=== PATIENT | female | born 1940 | race Caucasian/White ===

== ENCOUNTER → 2019-02-10 | Outpatient (CLI) | payer MEDICARE, BC ==
[~2019-02-10] MED LIST: ACET325T12 PO; ALBU0.63 NEB; ALPR0.25 PO; ALPR0.5T10 PO; ALPR0.5T6 PO; AMOX1TAB63 PO; AZIT250T14 PO; BENZ100C PO; BUDE10.2 IH; CALC300T5 PO; CYCL5TAB PO; ESZO3TAB27 PO; FEXO180T72 PO; FLUT1BLS IH; FURO-81 PO; FURO40TA4 PO; GABA300C10 PO; GUAI600T31 PO; LEVO500T8 PO; METR500T PO; MONT10TA6 PO; PANT40TA3 PO; POTA20TA14 PO; SERT50TA PO; TRAM50TA PO; UMEC62.5 IH; ZOLP10TA PO; ZOLP5TAB PO; [UNRECOGNIZED DRUG - CODE] PO
--- NOTE | 2019-02-10 15:56 | DIREP ---
PROCEDURE:XRAY FOOT MIN 3 VWS-RT COMPARISON:None. INDICATIONS:M25.571 PAIN IN RIGHT ANKLE AND JOINTS OF RIGHT FOOT FINDINGS: BONES:Mildly displaced fracture involving the proximal aspect of the proximal phalanx of the 4th toe. This appears to extend to the medial aspect of the articular surface. JOINTS:Normal. SOFT TISSUES:Normal. OTHER:No additional findings. CONCLUSION:Mildly displaced avulsion injury involving the proximal aspect of the proximal phalanx of the 4th toe Dictated by: Santosh Hahn MD on 02/10/2019 at 03:54 PM
== END | disposition home or self-care (01) ==
LOC: RAD 14:44
PROVIDERS: ATTEND Nurse Practitioner Family
DX: S92.514A Nondisplaced fracture of proximal phalanx of right lesser toe(s), initial encounter for closed fracture (principal); X58.XXXA Exposure to other specified factors, initial encounter; Y93.89 Activity, other specified; Y92.89 Other specified places as the place of occurrence of the external cause; Y99.8 Other external cause status; Z68.22 Body mass index [BMI] 22.0-22.9, adult
CPT/HCPCS: 73630-RT

== ENCOUNTER 2019-10-09 15:28 | Emergency (ER) | payer MEDICARE, BC ==
[~2019-10-09] VITALS: Ht 152.4 cm; Wt 52.6 kg
[2019-10-09 15:57] VITALS: BP 157/84
[2019-10-09] MEDS ORDERED: DUO 0.5-3(2.5) MG/3 ML IH STA (16:01)
[2019-10-09] MEDS ORDERED: LASIX PO STA (16:01)
[2019-10-09 16:04] VITALS: BP 157/84
[2019-10-09 16:05] VITALS: BP 157/84
--- NOTE | 2019-10-09 16:07 | NUR ---
ARRIVAL PT ARRIVED TO ED VIA POV WITH DAUGHTER. SHE STATES THAT SHE HAS HAD LOWER BACK PAIN SINCE HER FRACTURED BACK 2 YEARS AGO. IT HAS INCREASED IN PAIN OVER THE LAST WEEK. PT ALSO STATES THAT SHE WAS SEEN LAST SATURDAY BY ASHLEY MOORE FOR SOB, COUGH AND CONGESTION. A Z-PAC AND STERIODS WERE STARTED. PT COMPLETED ANTIBIOTICS SATURDAY. PT STATES THAT SHE STILL HAS NOT FELT BETTER AND THAT SHE CONTINUES TO FEEL SHORT OF BREATH. AMBULATED TO ROOM INDEPENDENTLY. CONNECTED TO BEDSIDE MONITOR.
[2019-10-09] MEDS ORDERED: LASIX ONE (16:09)
[2019-10-09] MEDS ORDERED: DUO 0.5-3(2.5) MG/3 ML IH ONE (16:10)
[2019-10-09 16:17] LABS: BASOPHIL % 0.5 % (0.0-0.2); EOSINOPHIL # 0.2 10^3/uL (0.0-0.2); EOSINOPHIL % 2.7 % (0.0-5.0); LYMPHOCYTES # 1.4 10^3/uL (1.0-4.8); LYMPHOCYTES % 18.5 % (24.0-44.0); MEAN CORP HGB 30.5 pg (26-34); MONOCYTES # 0.6 10^3/uL (0.3-0.8); MONOCYTES % 7.8 % (5.0-12.0); NEUTROPHIL # 5.2 10^3/uL (1.8-7.7); NEUTROPHILS % 70.1 % (41.0-85.0); RED CELL DISTRIBUTION WIDTH 12.6 % (11.5-14.5)
--- NOTE | 2019-10-09 16:20 | ER.PDOC ---
General Chief Complaint: Cough/Congestion Stated Complaint: dyspnea, LBA Time seen by MD: 16:00 Source: patient, family Exam Limitations: no limitations History of Present Illness Initial Comments TREATED FOR BRONCHITIS OUT PATIENT Timing/Duration: 1 week Severity: moderate Activities at Onset: activity/exertion Prior Episodes/Possible Cause: occasional episodes Modifying Factors: improves with activity, improves with rest Associated Symptoms: wheezing Prior symptoms/Treatment: Similar symptoms previous, Recenly Seen, Treated by Doctor Allergies: Coded Allergies: Iodinated Contrast- Oral and IV Dye (Verified Allergy, Severe, Rash, ) HEAD TO TOE RASH AND BLISTER codeine (Verified Allergy, Mild, Nausea, 09/14/14) Home Meds Active Scripts Guaifenesin (MUCINEX) 600 Mg Tablet.er, 600 MG PO BID for 7 Days, 0 Refills Prov:ESSENCE CHOWDHURY MERCHANDISE SUPPORT ASSOCIATE 09/10/17 Benzonatate (TESSALON PERLE) 100 Mg Capsule, 100 MG PO TID, #15 CAPSULE Prov:ESSENCE CHOWDHURY MERCHANDISE SUPPORT ASSOCIATE 09/10/17 Azithromycin (AZITHROMYCIN) 250 Mg Tablet, 500 MG PO DAILY for 3 Days, TABLET Prov:ESSENCE CHOWDHURY MERCHANDISE SUPPORT ASSOCIATE 09/10/17 Zolpidem Tartrate (AMBIEN) 5 Mg Tablet, 1 TAB PO HS PRN for INSOMNIA, #30 TAB 0 Refills Prov:TIFFANY BYERS MD 03/15/17 Reported Medications Furosemide (FUROSEMIDE) 40 Mg Tablet, 1 TAB PO DAILY, #30 TAB 5 Refills 09/07/17 Sertraline Hcl (ZOLOFT) 50 Mg Tablet, 1 TAB PO DAILY, #30 TAB 09/07/17 Alprazolam (ALPRAZOLAM) 0.5 Mg Tablet, 0.5 MG PO TID, TABLET 09/07/17 Potassium Chloride (POTASSIUM CHLORIDE) 20 Meq Tab.er.prt, 2 TAB PO DAILY, #30 TAB 5 Refills 09/07/17 Fluticasone/Vilanterol (Breo Ellipta 200-25 Mcg INH) 1 Each Blst.w.dev, 1 EACH IH QID 03/11/17 Cyclobenzaprine Hcl (FLEXERIL) 5 Mg Tablet, 1 TAB PO TID, #30 TAB 03/11/17 Alprazolam (ALPRAZOLAM) 0.5 Mg Tab.rapdis, 0.5 MG PO TID 03/11/17 Eszopiclone (LUNESTA) 3 Mg Tablet, 1 TAB PO HS, #30 TAB 1 Refill 03/11/17 Gabapentin (GABAPENTIN) 300 Mg Capsule, 1 CAP PO HS, #30 CAP 1 Refill 01/09/17 Aspirin/Caffeine (Anacin 400-32 mg Tablet) 1 Each Tablet, 2 EACH PO BID PRN for PAIN, TABLET 12/18/16 Tramadol Hcl (TRAMADOL HCL) 50 Mg Tablet, 50 MG PO PRN PRN for PAIN, TABLET 01/11/16 Albuterol Sulfate (ALBUTEROL SULFATE) 0.63 Mg/3 Ml Vial.neb, 1 VIAL NEB QID PRN for SHORTNESS OF BREATH, #150 MILLILITER 1 Refill 07/26/15 Past Medical History Surgical History: breast augmentation LMP (females 10-50): postmenopause Social History Smoking: non-smoker Alcohol Use: none Drug Use: none Reviewed Nursing Reviewed: Vital Signs, Abn. Noted Review of Systems All Other Systems: Reviewed and Negative Physical Exam General Appearance: No Apparent Distress, WD/WN HEENT: PERRL/EOMI, Normal ENT Inspection, TMs Normal, Pharynx Normal Neck: Non-Tender, Full Range of Motion, Supple, Normal Inspection Respiratory: rales, rhonchi Cardiovascular: Normal Peripheral Pulses, Regular Rate, Rhythm, No Edema, No Gallop, No JVD, No Murmur Gastrointestinal: Normal Bowel Sounds, No Organomegaly, No Pulsatile Mass, Non Tender, Soft Extremities: Normal Range of Motion, Non-Tender, Normal Inspection, No Pedal Edema, No Calf Tenderness, Normal Capillary Refill 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 (10/09/19 16:00) Helicobacter Pylori (10/09/19 16:00) D-Dimer (10/09/19 16:00) Xr Chest 1v (10/09/19 16:00) Ekg-Routine (10/09/19 16:00) Furosemide (Lasix) (10/09/19 16:01) Ipratropium/Albuterol Sulfate (Duo 0.5-3 (10/09/19 16:01) Morphine Sulfate (Morphine Sulfate) (10/09/19 16:30) Furosemide (Lasix) (10/09/19 16:09) Ipratropium/Albuterol Sulfate (Duo 0.5-3 (10/09/19 16:10) Vital Signs Date Time Temp Pulse Resp B/P (MAP) Pulse Ox O2 Delivery O2 Flow Rate FiO2 10/09/19 16:30 69 18 94 10/09/19 16:24 70 16 92 10/09/19 16:15 157/84 10/09/19 16:05 97.8 73 18 10/09/19 16:04 97.8 73 18 157/84 (108) 94 Room Air 10/09/19 15:57 97.8 73 18 94 Room Air Administered Medications Medications (Trade) Dose Ordered Sig/Beth Route PRN Reason Start Time Stop Time Status Last Admin Dose Admin Albuterol/ Ipratropium (Duo 0.5-3(2.5) Mg/3 ml) 3 ml STAT STAT IH 10/09/19 16:01 10/09/19 16:05 DC 10/09/19 16:23 3 ML Furosemide (Lasix) 40 mg STAT STAT PO 10/09/19 16:01 10/09/19 16:05 DC 10/09/19 16:15 40 MG Morphine Sulfate (Morphine Sulfate) 1 mg Q4H PRN IV PAIN 4 - 6 10/09/19 16:30 11/08/19 16:29 10/09/19 16:15 1 MG Laboratory Tests Test 10/09/19 16:08 White Blood Count 7.4 10^3/uL (4.5-11.0) Red Blood Count 3.97 10^6/uL (4.00-5.20) L Hemoglobin 12.1 g/dL (12.0-15.0) Hematocrit 37.8 % (36.0-46.0) Mean Corpuscular Volume 95.2 fL (78-100) Mean Corpuscular Hemoglobin 30.5 pg (26-34) Mean Corpuscular Hemoglobin Concent 32.0 g/dL (33-37) L Red Cell Distribution Width 12.6 % (11.5-14.5) Platelet Count 274 10^3/uL (150-400) Mean Platelet Volume 9.0 fL (7.8-11.0) Neutrophils (%) (Auto) 70.1 % (41.0-85.0) Lymphocytes (%) (Auto) 18.5 % (24.0-44.0) L Monocytes (%) (Auto) 7.8 % (5.0-12.0) Neutrophils # (Auto) 5.2 10^3/uL (1.8-7.7) Lymphocytes # (Auto) 1.4 10^3/uL (1.0-4.8) Monocytes # (Auto) 0.6 10^3/uL (0.3-0.8) Absolute Immature Granulocyte (auto 0.03 10^3 u/L (0-2) Immature Granulocytes % 0.40 % (0.00-0.50) Eosinophils % 2.7 % (0.0-5.0) Basophils % 0.5 % (0.0-0.2) H Basophils # 0.0 10^3/uL (0.0-0.1) Eosinophil Count 0.2 10^3/uL (0.0-0.2) Prothrombin Time 10.8 SEC (9.4-11.5) Prothrombin Time INR (Non-Therap) 1.0 Activated Partial Thromboplast Time 28.3 SEC (24.67-30.72) D-Dimer 0.87 mg/L (0.19-0.49) *H Sodium Level 143 mmol/L (132-145) Potassium Level 3.6 mmol/L (3.6-5.2) Chloride Level 106.0 mmol/L (96-109) Carbon Dioxide Level 31.1 mmol/L (20.0-32) Anion Gap 9.5 Blood Urea Nitrogen 9 mg/dL (7-18) Creatinine 0.77 mg/dL (0.59-1.40) Estimated GFR () 88.0 (>/=60) BUN/Creatinine Ratio 11.0 Glucose Level 85 mg/dL (70-110) Calcium Level 8.9 mg/dL (8.4-10.5) Total Bilirubin 0.2 mg/dL (0.2-1.0) Aspartate Amino Transferase (AST) 16 U/L (0-35) Alanine Aminotransferase (ALT) 13 U/L (12-78) Alkaline Phosphatase 117 U/L (50-136) Total Creatine Kinase 110 U/L (26-192) Creatine Kinase MB 1.6 ng/mL (0.5-3.6) Troponin I < 0.02 ng/mL (0.00-0.05) Pro-B-Type Natriuretic Peptide 160 pg/mL (0-450) Total Protein 6.5 g/dL (6.4-8.2) Albumin 3.0 g/dL (3.4-5.0) L Globulin 3.5 Helicobacter pylori Screen NEGATIVE (NEGATIVE) EKG/XRAY/CT/US EKG: NSR, nonspecific ST T wave chg, unchanged from Course Sepsis Screening Results: Posi: POSITIVE SEPSIS RISK Duration or Total Time Spent w: 2 HRS Vitals & review Data Vital Sign - Last 24 Hours 10/09/19 10/09/19 10/09/19 10/09/19 15:57 16:04 16:05 16:15 Temp 97.8 97.8 97.8 Pulse 73 73 73 Resp 18 18 18 B/P (MAP) 157/84 (108) 157/84 Pulse Ox 94 94 O2 Delivery Room Air Room Air 10/09/19 10/09/19 16:24 16:30 Pulse 70 69 Resp 16 18 Pulse Ox 92 94 Laboratory Tests Test 10/09/19 16:08 White Blood Count 7.4 10^3/uL Red Blood Count 3.97 10^6/uL Hemoglobin 12.1 g/dL Hematocrit 37.8 % Mean Corpuscular Volume 95.2 fL Mean Corpuscular Hemoglobin 30.5 pg Mean Corpuscular Hemoglobin Concent 32.0 g/dL Red Cell Distribution Width 12.6 % Platelet Count 274 10^3/uL Mean Platelet Volume 9.0 fL Neutrophils (%) (Auto) 70.1 % Lymphocytes (%) (Auto) 18.5 % Monocytes (%) (Auto) 7.8 % Neutrophils # (Auto) 5.2 10^3/uL Lymphocytes # (Auto) 1.4 10^3/uL Monocytes # (Auto) 0.6 10^3/uL Absolute Immature Granulocyte (auto 0.03 10^3 u/L Immature Granulocytes % 0.40 % Eosinophils % 2.7 % Basophils % 0.5 % Basophils # 0.0 10^3/uL Eosinophil Count 0.2 10^3/uL Prothrombin Time 10.8 SEC Prothrombin Time INR (Non-Therap) 1.0 Activated Partial Thromboplast Time 28.3 SEC D-Dimer 0.87 mg/L Sodium Level 143 mmol/L Potassium Level 3.6 mmol/L Chloride Level 106.0 mmol/L Carbon Dioxide Level 31.1 mmol/L Anion Gap 9.5 Blood Urea Nitrogen 9 mg/dL Creatinine 0.77 mg/dL Estimated GFR () 88.0 BUN/Creatinine Ratio 11.0 Glucose Level 85 mg/dL Calcium Level 8.9 mg/dL Total Bilirubin 0.2 mg/dL Aspartate Amino Transf (AST/SGOT) 16 U/L Alanine Aminotransferase (ALT/SGPT) 13 U/L Alkaline Phosphatase 117 U/L Total Creatine Kinase 110 U/L Creatine Kinase MB 1.6 ng/mL Troponin I < 0.02 ng/mL Pro-B-Type Natriuretic Peptide 160 pg/mL Total Protein 6.5 g/dL Albumin 3.0 g/dL Globulin 3.5 Helicobacter pylori Screen NEGATIVE Current Medications Medications (Trade) Dose Ordered Sig/Beth PRN Reason Start Time Stop Time Status Last Admin Morphine Sulfate (Morphine Sulfate) 1 mg Q4H PRN PAIN 4 - 6 10/09/19 16:30 11/08/19 16:29 10/09/19 16:15 O2 Sat by Pulse Oximetry: 94 Departure Time of Disposition: 17:00 Disposition: 01 HOME, SELF-CARE Impression: Primary Impression: Acute bronchitis Condition: Improved Referrals: JOHN OSMAN MERCHANDISE SUPPORT ASSOCIATE (PCP) PRIMARY CARE PROVIDER Duration or Time Spent with Pa: KATARINA Polanco MD Oct 09, 2019 16:20
--- NOTE | 2019-10-09 16:21 | PCM.EKG ---
[facility] Test Date: 2019-10-09 Test Time: 16:18:45 Pat Name: GABBIE ECHAVARRIA Department: Patient ID: 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 Reading MD: Darius Barclay Measurements Intervals [place] Rate: 69 P: 72 [place]: 150 QRS: -49 QRSD: 113 T: 62 QT: 420 QTc: 450 Interpretive Statements Sinus rhythm Atrial premature complex Incomplete RBBB and LAFB Minimal ST elevation, anterior leads Baseline wander in lead(s) V1 Compared to ECG 04/05/2018 16:07:17 Atrial premature complex(es) now present Left anterior fascicular block now present Incomplete right bundle-branch block now present Right bundle-branch block now present ST (T wave) deviation now present Electronically Signed On 10-14-2019 8:10:17 SALES APPLICATIONS ENGINEER by Darius Barclay Please click the below link to view image of tracing.
[2019-10-09] MEDS ORDERED: MORPHINE SULFATE IV PRN (16:30)
--- NOTE | 2019-10-09 16:36 | DIREP ---
PROCEDURE:CHEST 1 VIEW COMPARISON:[facility], CR, XRAY CHEST SINGLE VW, 04/05/2018, 04:10 PM. [facility], CR, XRAY CHEST 2 VWS, 03/18/2018, 11:05 AM. [facility], CR, XRAY CHEST 2 VWS, 03/03/2018, 02:56 PM. INDICATIONS:chf, dyspnea FINDINGS: LUNGS/PLEURA:Mild hyperinflation. No focal consolidation appreciated. VASCULATURE:Normal. Unremarkable pulmonary vasculature. CARDIAC:Normal. No cardiac silhouette abnormality or cardiomegaly. MEDIASTINUM:Normal. No visible mass or adenopathy. BONES:Mild degenerative changes. OTHER:Negative. CONCLUSION:Mild hyperinflation, without acute abnormality noted. Dictated by: Marlon Ceja M.D. on 10/09/2019 at 04:34 PM
--- NOTE | 2019-10-09 16:39 | NUR ---
CRITICAL LAB D-DIMER 0.87. REPORTED TO DR. OZUNA
[2019-10-09 16:44] LABS: ALANINE AMINOTRANSFERASE(ML) 13 U/L (12-78); ALKALINE PHOSPHATASE 117 U/L (50-136); ASPARTATE AMINO TRANSFERASE 16 U/L (0-35); CALCIUM 8.9 mg/dL (8.4-10.5); CARBON DIOXIDE 31.1 mmol/L (20.0-32); GLUCOSE 85 mg/dL (70-110)
[2019-11-22] MEDS ORDERED: Metoprolol Succinate PO (10:21)
[2019-11-22] MEDS ORDERED: PANT40TA3 PO (10:21)
[2019-11-22] MEDS ORDERED: RANO500T2 PO (10:21)
[2019-11-22] MEDS ORDERED: ATOR40TA PO (10:21)
[2019-11-24] MEDS ORDERED: METO25TA4 PO (14:35)
[2019-11-24] MEDS ORDERED: BENZ100C PO (14:35)
== END 2019-10-09 17:10 | disposition home or self-care (01) ==
LOC: ER 15:28
DX: J20.9 Acute bronchitis, unspecified (principal); Z79.82 Long term (current) use of aspirin; Z79.899 Other long term (current) drug therapy; Z88.5 Allergy status to narcotic agent; R79.1 Abnormal coagulation profile
CPT/HCPCS: 36415; 71045; 80053; 82550; 82553; 83880; 84484; 85025; 85379; 85610; 85730; 86677; 93005; 94640; 96374; 99285; J7620

== ENCOUNTER → 2019-10-14 | Outpatient (CLI) | payer MEDICARE, BC ==
[~2019-10-14] MED LIST changes: +ATOR40TA PO; +METO25TA4 PO; +Metoprolol Succinate PO; +RANO500T2 PO
--- NOTE | 2019-10-14 14:37 | DIREP ---
PROCEDURE:CHEST 2 VIEWS COMPARISON:[facility], CR, XRAY CHEST SINGLE VW, 10/09/2019, 04:12 PM. [facility], CR, XRAY CHEST SINGLE VW, 04/05/2018, 04:10 PM. INDICATIONS:COPD, ASTHMA EXTERBATION FINDINGS: LUNGS/PLEURA:Hyperinflated lung finley with chronic interstitial changes. Left lower lobe opacity, could represent atelectasis versus evolving infiltrate. Improved aeration compared to prior study. VASCULATURE:Unremarkable pulmonary vasculature. Calcified aortic arch. CARDIAC:Normal. No cardiac silhouette abnormality or cardiomegaly. MEDIASTINUM:Normal. No visible mass or adenopathy. BONES:Mild exaggeration of normal thoracic kyphosis. Degenerative change without evidence of acute osseus abnormality. OTHER:Negative. CONCLUSION: 1. Left lower lobe opacity, could represent atelectasis versus evolving infiltrate. 2. Stable changes related to reactive airway disease or COPD/emphysema. Dictated by: Suhail Thurman MD on 10/14/2019 at 02:35 PM
== END | disposition home or self-care (01) ==
LOC: RAD 12:27
PROVIDERS: ATTEND Specialist
DX: J44.1 Chronic obstructive pulmonary disease with (acute) exacerbation (principal)
CPT/HCPCS: 71046

== ENCOUNTER → 2019-10-19 | Outpatient (CLI) | payer MEDICARE, BC ==
[~2019-10-19] MED LIST changes: -ATOR40TA PO; -METO25TA4 PO; -Metoprolol Succinate PO; -RANO500T2 PO
--- NOTE | 2019-10-19 15:49 | DIREP ---
PROCEDURE:XR BARIUM SWALLOW - MODIFIED COMPARISON:None. INDICATIONS:Dysphasia TECHNIQUE:A comprehensive fluoroscopic examination of swallowing was performed, utilizing a variety of barium consistencies. FINDINGS: There was premature spill to the valleculae and piriform sinuses, particularly with thin liquids. No laryngeal penetration or aspiration was identified. FLUORO TIME: 1.6 minutes NUMBER OF IMAGES: 1 CONCLUSION: 1. No laryngeal penetration or aspiration. Dictated by: Carlos Manuel Wayne M.D. On 10/19/2019 at 03:51 PM
== END | disposition home or self-care (01) ==
LOC: RAD 12:57
PROVIDERS: ATTEND Nurse Practitioner Family
DX: R47.02 Dysphasia (principal); R13.10 Dysphagia, unspecified
CPT/HCPCS: 74230; 92611

== ENCOUNTER → 2019-10-20 | Outpatient (CLI) | payer MEDICARE, BC ==
[~2019-10-20] MED LIST changes: +VENTOLIN IH ONE
--- NOTE | 2019-10-20 12:30 | DIREP ---
PROCEDURE:XRAY SPINE LUMBAR 2-3 VWS COMPARISON:[facility], , XRAY SPINE LUMBAR 2-3 VWS, 03/03/2018, 04:56 PM. INDICATIONS:M54.5 LOW BACK PAIN TECHNIQUE:AP, lateral, bilateral oblique, and coned down lateral views of the lumbar spine are provided. FINDINGS: ALIGNMENT:Normal alignment. VERTEBRAE:Residual contrast in the colon limits osseous detail. No bony abnormality as visualized. Vertebral body heights appear maintained. Below mild facet arthropathy. S1 appears transitional. DISK SPACES:Disc spaces maintained. SPONDYLOLISTHESIS:None. SACROILIAC JOINTS:Partially obscured by contrast in the colon. No abnormality as visualized. OTHER:Normal. CONCLUSION: 1. Residual contrast in the colon limits bony detail. 2. Mild lower lumbar facet arthropathy. Dictated by: Ramon Newberry M.D. on 10/20/2019 at 12:22 PM
== END | disposition home or self-care (01) ==
LOC: RT 09:36
PROVIDERS: ATTEND Nurse Practitioner Family
DX: M12.88 Other specific arthropathies, not elsewhere classified, other specified site (principal); J44.9 Chronic obstructive pulmonary disease, unspecified
CPT/HCPCS: 72100; 94060; 94729; J7613

== ENCOUNTER 2019-11-20 14:48 | Inpatient (IN) | payer MEDICARE, BC ==
[2019-11-20] VITALS (12 sets, daily range): BP systolic 90–131; BP diastolic 37–73
[~2019-11-20] VITALS: Ht 152.4 cm; Wt 49.4 kg
[~2019-11-20 14:48] MED LIST changes: -VENTOLIN IH ONE
--- NOTE | 2019-11-20 15:29 | PCM.EKG ---
[facility] Test Date: 2019-11-20 Test Time: 15:24:11 Pat Name: GABBIE ECHAVARRIA Department: Room: ICU6 Gender: F Production Support Developer: BRENDEN : 1940 Requested By: FREDIS SANTACRUZ Order Number: [id number] Reading MD: Fredis SANTACRUZ Measurements Intervals [place] Rate: 65 P: 67 [place]: 137 QRS: -47 QRSD: 120 T: 61 QT: 442 QTc: 460 Interpretive Statements Sinus rhythm Incomplete RBBB and LAFB Minimal ST elevation, anterior leads Compared to ECG 10/09/2019 16:18:45 Atrial premature complex(es) no longer present ST (T wave) deviation still present Electronically Signed On 11-24-2019 23:06:35 EMERGENCY MEDCL EMT by Fredis SANTACRUZ Please click the below link to view image of tracing.
[2019-11-20 15:32] LABS: BASOPHIL # 0.1 10^3/uL (0.0-0.1); BASOPHIL % 0.6 % (0.0-0.2); EOSINOPHIL # 0.3 10^3/uL (0.0-0.2); EOSINOPHIL % 3.4 % (0.0-5.0); LYMPHOCYTES # 1.8 10^3/uL (1.0-4.8); LYMPHOCYTES % 22.6 % (24.0-44.0); MEAN CORP HGB 30.1 pg (26-34); MONOCYTES # 0.5 10^3/uL (0.3-0.8); MONOCYTES % 6.5 % (5.0-12.0); NEUTROPHIL # 5.3 10^3/uL (1.8-7.7); NEUTROPHILS % 66.6 % (41.0-85.0); RED CELL DISTRIBUTION WIDTH 13.7 % (11.5-14.5)
--- NOTE | 2019-11-20 15:39 | NUR ---
UPDATE DR. SANTACRUZ ON THE PHONE WITH DR. REYES
--- NOTE | 2019-11-20 15:40 | DIREP ---
PROCEDURE:CHEST 1 VIEW COMPARISON:[facility], [facility], XRAY CHEST 2 VWS, 10/14/2019, 12:44 PM. [facility], [facility], XRAY CHEST SINGLE VW, 10/09/2019, 04:12 PM. [facility], [facility], XRAY CHEST SINGLE VW, 04/05/2018, 04:10 PM. INDICATIONS:Chest pain FINDINGS: LUNGS/PLEURA:Left lower lobe airspace opacity, which may represent consolidation or atelectasis. No effusion or pneumothorax. VASCULATURE:Normal. Unremarkable pulmonary vasculature. CARDIAC:Normal. No cardiac silhouette abnormality or cardiomegaly. MEDIASTINUM:Calcified aortic arch. BONES:Diffuse degenerative changes. OTHER:EKG leads. CONCLUSION:Left lower lobe airspace opacity, which may represent pneumonia or atelectasis. Dictated by: Marlon Ceja M.D. on 11/20/2019 at 03:38 PM
--- NOTE | 2019-11-20 15:42 | ER.PDOC ---
General Chief Complaint: Chest Pain-Cardiac Nature Stated Complaint: chest pain Time seen by MD: 15:40 Source: patient Exam Limitations: no limitations History of Present Illness Initial Comments Chest pain Timing/Duration: 1 hour Severity/Quality: tightness Radiation: no radiation Prior CP/Workup: Stress Test Nitro Today/Relief: 0.4 mg x 2, Mild Relief Aspirin Today: 81 mg x 4 Associated Symptoms: shortness of breath Allergies: Coded Allergies: Iodinated Contrast Media (Verified Allergy, Severe, Rash, 12/18/16) HEAD TO TOE RASH AND BLISTER codeine (Verified Allergy, Mild, Nausea, 09/14/14) Home Meds Active Scripts Guaifenesin (MUCINEX) 600 Mg Tablet.er, 600 MG PO BID for 7 Days, 0 Refills Prov:ESSENCE CHOWDHURY GAS METER CHECKER 09/10/17 Benzonatate (TESSALON PERLE) 100 Mg Capsule, 100 MG PO TID, #15 CAPSULE Prov:ESSENCE CHOWDHURY GAS METER CHECKER 09/10/17 Azithromycin (AZITHROMYCIN) 250 Mg Tablet, 500 MG PO DAILY for 3 Days, TABLET Prov:ESSENCE CHOWDHURY GAS METER CHECKER 09/10/17 Zolpidem Tartrate (AMBIEN) 5 Mg Tablet, 1 TAB PO HS PRN for INSOMNIA, #30 TAB 0 Refills Prov:TIFFANY BYERS MD 03/15/17 Reported Medications Furosemide (FUROSEMIDE) 40 Mg Tablet, 1 TAB PO DAILY, #30 TAB 5 Refills 09/07/17 Sertraline Hcl (ZOLOFT) 50 Mg Tablet, 1 TAB PO DAILY, #30 TAB 09/07/17 Alprazolam (ALPRAZOLAM) 0.5 Mg Tablet, 0.5 MG PO TID, TABLET 09/07/17 Potassium Chloride (POTASSIUM CHLORIDE) 20 Meq Tab.er.prt, 2 TAB PO DAILY, #30 TAB 5 Refills 09/07/17 Fluticasone/Vilanterol (Breo Ellipta 200-25 Mcg INH) 1 Each Blst.w.dev, 1 EACH IH QID 03/11/17 Cyclobenzaprine Hcl (FLEXERIL) 5 Mg Tablet, 1 TAB PO TID, #30 TAB 03/11/17 Alprazolam (ALPRAZOLAM) 0.5 Mg Tab.rapdis, 0.5 MG PO TID 03/11/17 Eszopiclone (LUNESTA) 3 Mg Tablet, 1 TAB PO HS, #30 TAB 1 Refill 03/11/17 Gabapentin (GABAPENTIN) 300 Mg Capsule, 1 CAP PO HS, #30 CAP 1 Refill 01/09/17 Aspirin/Caffeine (Anacin 400-32 mg Tablet) 1 Each Tablet, 2 EACH PO BID PRN for PAIN, TABLET 12/18/16 Tramadol Hcl (TRAMADOL HCL) 50 Mg Tablet, 50 MG PO PRN PRN for PAIN, TABLET 01/11/16 Albuterol Sulfate (ALBUTEROL SULFATE) 0.63 Mg/3 Ml Vial.neb, 1 VIAL NEB QID PRN for SHORTNESS OF BREATH, #150 MILLILITER 1 Refill 07/26/15 Past Medical History Medical History: angina, congestive heart failure, COPD Surgical History: cardiac cath Social History Alcohol Use: none Drug Use: none Constitutional: no symptoms reported Respiratory: see HPI Cardiovascular: see HPI Gastrointestinal: no symptoms reported Genitourinary: no symptoms reported Musculoskeletal: no symptoms reported All Other Systems: Reviewed and Negative Physical Exam General Appearance: No Apparent Distress, WD/WN Neck: Non-Tender, Full Range of Motion, Supple, Normal Inspection Respiratory: chest non-tender, lungs clear, normal breath sounds, no respiratory distress, no accessory muscle use Cardiovascular: Normal Peripheral Pulses, Regular Rate, Rhythm, No Edema, No Gallop, No JVD, No Murmur Gastrointestinal: Normal Bowel Sounds, No Organomegaly, No Pulsatile Mass, Non Tender, Soft Extremities: Normal Range of Motion, Non-Tender, Normal Inspection, No Pedal Edema, No Calf Tenderness, Normal Capillary Refill Neurologic/Psychiatric: 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 (1/10/20 15:18) Helicobacter Pylori (11/20/19 15:18) D-Dimer (11/20/19 15:18) Ekg-Routine (11/20/19 15:18) Xr Chest 1v (11/20/19 15:18) Vital Signs Date Time Temp Pulse Resp B/P (MAP) Pulse Ox O2 Delivery O2 Flow Rate FiO2 11/20/19 14:49 97.8 74 18 95 11/20/19 14:49 97.8 76 20 121/52 (75) 96 Nasal [place] 2.00 Laboratory Tests Test 11/20/19 15:27 White Blood Count 7.9 10^3/uL (4.5-11.0) Red Blood Count 4.48 10^6/uL (4.00-5.20) Hemoglobin 13.5 g/dL (12.0-15.0) Hematocrit 42.0 % (36.0-46.0) Mean Corpuscular Volume 93.8 fL (78-100) Mean Corpuscular Hemoglobin 30.1 pg (26-34) Mean Corpuscular Hemoglobin Concent 32.1 g/dL (33-37) L Red Cell Distribution Width 13.7 % (11.5-14.5) Platelet Count 225 10^3/uL (150-400) Mean Platelet Volume 10.0 fL (7.8-11.0) Neutrophils (%) (Auto) 66.6 % (41.0-85.0) Lymphocytes (%) (Auto) 22.6 % (24.0-44.0) L Monocytes (%) (Auto) 6.5 % (5.0-12.0) Neutrophils # (Auto) 5.3 10^3/uL (1.8-7.7) Lymphocytes # (Auto) 1.8 10^3/uL (1.0-4.8) Monocytes # (Auto) 0.5 10^3/uL (0.3-0.8) Absolute Immature Granulocyte (auto 0.02 10^3 u/L (0-2) Absolute Eosinophils (auto) 0.3 10^3/uL (0.0-0.2) H Immature Granulocytes % 0.30 % (0.00-0.50) Eosinophils % 3.4 % (0.0-5.0) Basophils % 0.6 % (0.0-0.2) H Basophils # 0.1 10^3/uL (0.0-0.1) Progress Progress CXR: :Left lower lobe airspace opacity, which may represent pneumonia or atelectasis. EKG/XRAY/CT/US EKG: NSR Departure Time of Disposition: 16:36 Disposition: 09 ADMITTED INPATIENT Impression: Primary Impression: Unstable angina Condition: Stable Referrals: JOHN OSMAN GAS METER CHECKER (PCP) PRIMARY CARE PROVIDER Comments Admitted by Dr. Alfonso Duration or Time Spent with Pa: 45 mins FREDIS SANTACRUZ MD Nov 20, 2019 15:42
[2019-11-20] MEDS ORDERED: MORPHINE SULFATE IV STA (15:50)
[2019-11-20 16:00] LABS: ALANINE AMINOTRANSFERASE(ML) 12 U/L (12-78); ALKALINE PHOSPHATASE 105 U/L (50-136); ASPARTATE AMINO TRANSFERASE 15 U/L (0-35); CARBON DIOXIDE 29.2 mmol/L (20.0-32); GLUCOSE 83 mg/dL (70-110)
[2019-11-20] MEDS ORDERED: NITROGLYCERIN 25MG/D5W 250ML 250 ML IV SCH (16:00)
[2019-11-20] MEDS ORDERED: ULTRAM PO PRN (16:00)
[2019-11-20] MEDS ORDERED: MORPHINE SULFATE IV PRN (16:00)
[2019-11-20] MEDS ORDERED: AMBIEN PO PRN (16:00)
[2019-11-20] MEDS: ASPIRIN EC PO SCH (16:21)
[2019-11-20] MEDS: NS 1000ML/KCL 20MEQ 1,000 ML IV SCH (16:40)
[2019-11-20] MEDS ORDERED: NITROGLYCERIN 25MG/D5W 250ML 250 ML IV ONE (16:49)
--- NOTE | 2019-11-20 16:52 | NUR ---
UPDATE DR. SANTACRUZ ON THE PHONE WITH DR. REYES.
--- NOTE | 2019-11-20 17:19 | NUR ---
called report to neisha at [phone]
--- NOTE | 2019-11-20 20:02 | PCM.EKG ---
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: PRIMO : 1940 Requested By: JADON REYES Order Number: [id number] Reading MD: Measurements Intervals [place] Rate: 73 P: 57 [place]: 135 QRS: -59 QRSD: 112 T: 64 QT: 417 QTc: 460 Interpretive Statements Sinus rhythm Incomplete right bundle branch block Inferior infarct, old Compared to ECG 10/09/2019 16:18:45 Myocardial infarct finding now present Atrial premature complex(es) no longer present Left anterior fascicular block no longer present Right bundle-branch block no longer present ST (T wave) deviation no longer present Please click the below link to view image of tracing.
[2019-11-20] MEDS ORDERED: AMBIEN ONE (22:52)
[2019-11-20] MEDS: LOVENOX SQ SCH (22:53)
[2019-11-20] MEDS: MUCINEX PO SCH (22:54)
[2019-11-20] MEDS: NEURONTIN PO SCH (22:54)
[2019-11-20] MEDS: LIPITOR PO SCH (22:54)
[2019-11-20] MEDS: XANAX PO SCH (22:54)
[2019-11-20] MEDS: RANEXA PO SCH (22:54)
[2019-11-21] VITALS (60 sets, daily range): BP systolic 48–166; BP diastolic 17–119
[2019-11-21] MEDS: NS 1000ML/KCL 20MEQ 1,000 ML IV SCH ×3 (02:00→18:18)
--- NOTE | 2019-11-21 07:35 | PCM.EKG ---
[facility] Test Date: 2019-11-21 Test Time: 07:33:05 Pat Name: GABBIE ECHAVARRIA Department: Room: ICU6 Gender: F Account Liaison Hospice: MINERVA : 1940 Requested By: JADON REYES Order Number: [id number] Reading MD: Measurements Intervals [place] Rate: 91 P: 66 MA: 138 QRS: -55 QRSD: 108 T: 64 QT: 379 QTc: 467 Interpretive Statements Sinus rhythm RSR' in V1 or V2, right VCD or RVH Inferior infarct, old Compared to ECG 10/09/2019 16:18:45 Right ventricular hypertrophy now present RSR' in V1 or V2 now present Myocardial infarct finding now present Atrial premature complex(es) no longer present Left anterior fascicular block no longer present Incomplete right bundle-branch block no longer present Right bundle-branch block no longer present ST (T wave) deviation no longer present Please click the below link to view image of tracing.
[2019-11-21] MEDS ORDERED: PULMICORT IH ONE (07:52)
[2019-11-21] MEDS ORDERED: VENTOLIN IH ONE (07:53)
[2019-11-21] MEDS: PULMICORT IH SCH ×2 (07:59→21:53)
[2019-11-21] MEDS: VENTOLIN IH SCH ×4 (07:59→21:53)
[2019-11-21] MEDS: LOVENOX SQ SCH (09:00)
[2019-11-21] MEDS: ZOLOFT PO SCH (09:17)
[2019-11-21] MEDS: PROTONIX PO SCH (09:17)
[2019-11-21] MEDS: RANEXA PO SCH ×2 (09:18→20:36)
[2019-11-21] MEDS: XANAX PO SCH ×3 (09:18→20:36)
[2019-11-21] MEDS: MUCINEX PO SCH ×2 (09:18→20:36)
--- NOTE | 2019-11-21 09:20 | NUR ---
Nitro gtt Nitro gtt discontinued at this time per Dr. Alfonso order. Pt denies any chest pain or pressure.
--- NOTE | 2019-11-21 11:42 | NUR ---
Dr. Kaden Alfonso at bedside discussing plan of care and assessing pt. New orders received to discontinue Lovenox. RBVO.
[2019-11-21] MEDS: ULTRAM PO PRN (12:44)
--- NOTE | 2019-11-21 15:13 | HPH ---
ADMIT DATE: 11/20/2019 CHIEF COMPLAINT: Chest heaviness, tightness. HISTORY OF PRESENT ILLNESS: The patient is a 79-year-old white female with underlying history of COPD and she had a normal myocardial perfusion scan several months ago and she has underlying history of coronary stents and hypertension, hypertensive heart disease and she presented with chest heaviness, tightness and shortness of breath and had taken 2 nitro at home, was given morphine and EKG was showing RSR pattern in V1, V2, may be an incomplete right bundle branch block, but diffuse ST-T wave changes and troponins were negative, but because she had significant chest pain, improved with nitro and nitro drip, the patient was admitted with diagnosis of acute coronary ischemia, rule out infarct. ALLERGIES: IODINE COMPOUNDS AND CODEINE. MEDICATIONS: She has been on Mucinex 600 mg twice a day, recently had cough has been on Tessalon Perles 100 mg 3 times a day, finished a course of Zithromax, Ambien 5 mg once a day, Lasix 40 mg once a day, Zoloft 50 mg once a day, Xanax 0.5 mg 3 times a day, potassium 20 mEq 2 tablets daily and she is on Breo Ellipta 1 puff daily and cyclobenzaprine 5 mg once a day. She is on Lunesta on p.r.n. basis and gabapentin 300 mg at bedtime. She takes aspirin with caffeine combination, Anacin 400-32 two tablets twice a day for headaches, Ultram 50 mg p.r.n. for pain. She takes albuterol inhaler on p.r.n. basis. PAST MEDICAL HISTORY: History of COPD, hypertension, prior cardiac catheterization, has had 1 coronary stents, history of chronic stable angina. Last perfusion scan was normal. SOCIAL HISTORY: She is a smoker, prior history of almost [id number] history of smoking, no history of any ethanol abuse. FAMILY HISTORY: Positive for heart problems. PHYSICAL EXAMINATION: GENERAL: She is alert, awake, oriented, 152 cm, 49 kilograms, BMI 21.3, lean thin, asthenically built. VITAL SIGNS: Her initial blood pressure was 120/57, respirations 18 and 100-100 pulse sinus tachycardia, 94 saturation on 2 liters nasal cannula. HEENT: Unremarkable. NECK: No JVD, no carotid bruits and she has breast implants. CHEST: Emphysematous chest. LUNGS: Poor air entry bilaterally. HEART: Sounds S1, S2 normal. No murmurs, gallop rhythm. ABDOMEN: Soft, nontender, no organomegaly. EXTREMITIES: Distal pulses fairly well felt. NEUROLOGIC: No focal neuro deficit is documented. No dependent edema is noted. LABORATORY DATA: CBC was normal. Chemistries were normal. Calcium was 8, bilirubin 0.1, potassium was 2.9. She has not been taking potassium and her chest x-ray was showing left lower lobe airspace opacity, which may be atelectasis versus pneumonia and she just has been taking Zithromax. IMAGING STUDIES: EKG as already described. IMPRESSION: History consistent with crescendo angina, responsive to nitroglycerin. History of COPD, prior coronary stents. PLAN: At this time, admit the patient. We will just start her empirically on Lovenox subcutaneous along with IV nitro drip since she had significant pain for over an hour and EKG, enzymes and further management will depend on the clinical course. Álvarohand MD Kaden DR: SARAH/lida JOB# [id number]
[2019-11-21 15:16] LABS: CALCIUM 8.1 mg/dL (8.4-10.5)
[2019-11-21 15:32] LABS: CARBON DIOXIDE 26.6 mmol/L (20.0-32)
[2019-11-21] MEDS: ASPIRIN EC PO SCH (15:56)
[2019-11-21] MEDS ORDERED: MYLANTA ONE (16:31)
[2019-11-21] MEDS ORDERED: MYLANTA PO ONE (17:00)
[2019-11-21] MEDS: LIPITOR PO SCH (20:36)
[2019-11-21] MEDS: NEURONTIN PO SCH (20:36)
[2019-11-21] MEDS: TYLENOL PO PRN (20:39)
[2019-11-21] MEDS ORDERED: REGLAN IV ONE (21:00)
[2019-11-22] VITALS (43 sets, daily range): BP systolic 76–151; BP diastolic 40–87
--- NOTE | 2019-11-22 01:30 | PNH ---
DATE: 11/21/2019 SUBJECTIVE: The patient is doing well. Her pain is improved. OBJECTIVE: VITAL SIGNS: Her pulse is 92, respirations 21, 110/60 blood pressure and 95 saturation. NECK: No JVD. LUNGS: Poor air entry bilaterally. HEART: Sounds normal. DIAGNOSTIC STUDIES: Three EKGs were not showing any evolutionary changes of an acute infarct and 3 troponins were negative. Has hypokalemia, we will replete potassium. IMPRESSION: History consistent with crescendo angina. The history was very significant. She did have a recent perfusion study. Probably needs a cardiac catheterization for which she will be scheduled on 11/23/2019. We will see her on 11/22/2019. If she is doing well, can go home and come back and replete potassium, may get a 2-view x-ray to see if there is early pneumonia. Clinically, she does not appear to be. We will continue same therapy. We will do a procalcitonin to see if she has bacterial infection. Jonathan Alfonso MD DR: SARAH/lida JOB# [id number]
[2019-11-22] MEDS: NS 1000ML/KCL 20MEQ 1,000 ML IV SCH (08:00)
[2019-11-22] MEDS: VENTOLIN IH SCH ×2 (08:54→14:00)
[2019-11-22] MEDS: PULMICORT IH SCH (08:54)
[2019-11-22] MEDS: RANEXA PO SCH (08:57)
[2019-11-22] MEDS: MUCINEX PO SCH (08:57)
[2019-11-22] MEDS: PROTONIX PO SCH (08:57)
[2019-11-22] MEDS: ZOLOFT PO SCH (08:57)
[2019-11-22] MEDS: XANAX PO SCH (08:57)
[2019-11-22] MEDS ORDERED: ASPIRIN EC PO SCH (09:00)
[2019-11-22] MEDS ORDERED: TOPROL XL PO SCH (09:00)
[2019-11-22] MEDS: ULTRAM PO PRN (09:24)
[2019-11-22] MEDS ORDERED: RANO500T2 PO (10:21)
[2019-11-22] MEDS ORDERED: ATOR40TA PO (10:21)
[2019-11-22] MEDS ORDERED: Metoprolol Succinate PO (10:21)
[2019-11-22] MEDS ORDERED: PANT40TA3 PO (10:21)
[2019-11-22 10:35] LABS: BASOPHIL % 0.6 % (0.0-0.2); EOSINOPHIL # 0.3 10^3/uL (0.0-0.2); EOSINOPHIL % 4.2 % (0.0-5.0); LYMPHOCYTES # 1.5 10^3/uL (1.0-4.8); LYMPHOCYTES % 22.6 % (24.0-44.0); MEAN CORP HGB 30.5 pg (26-34); MONOCYTES # 0.5 10^3/uL (0.3-0.8); MONOCYTES % 7.5 % (5.0-12.0); NEUTROPHIL # 4.2 10^3/uL (1.8-7.7); NEUTROPHILS % 64.9 % (41.0-85.0); RED CELL DISTRIBUTION WIDTH 13.7 % (11.5-14.5)
--- NOTE | 2019-11-22 10:49 | DIREP ---
PROCEDURE:CHEST 2 VIEWS COMPARISON:[facility], CR, XRAY CHEST SINGLE VW, 11/20/2019, 03:10 PM. INDICATIONS:copd FINDINGS: LUNGS/PLEURA:Mild regions of basilar atelectasis, predominantly left-sided. Findings seen in the setting of emphysema. VASCULATURE:Normal. Unremarkable pulmonary vasculature. CARDIAC:Normal. No cardiac silhouette abnormality or cardiomegaly. MEDIASTINUM:Atherosclerotic aorta with no visible aneurysm. BONES:Normal. No fracture or visible bony lesion. OTHER:Negative. CONCLUSION:COPD, with superimposed left basilar atelectasis. Dictated by: Santosh Hahn MD on 11/22/2019 at 10:46 AM
[2019-11-22] MEDS: TYLENOL PO PRN (11:32)
--- NOTE | 2019-11-22 12:15 | NUR ---
Dr. Kaden Alfonso at bedside. New orders received for discharge and to have patient return Saturday for an outpatient heart cath. Adan Luna RN notified.
--- NOTE | 2019-11-22 14:25 | NUR ---
Discharge Discharge instructions given to patient. Instructed pt to go to ER on 11/25/19 at 5:45 AM to register for outpatient heart cath and that heart cath is to be done at 0800, pt verbalized understanding. Educated pt on pre-heart cath instructions, pt to stay NPO after midnight but to take beta lilli, pt verbalized understanding. Educated pt and daughter on new medications and side effects, both verbalized understanding. [facility] uses [facility] and they are closed on Saturday, so pharmacy provided pt with new medications for tonight dose and AM per Dr. Alfonso order. Answered all of pt questions. Discontinued IV, catheter tip intact. No swelling, redness, heat or pain noted. Covered with cotton ball and bandaid. Pt transferred off unit via wheelchair to private vehicle. No s/s of distress noted.
[2019-11-24] MEDS ORDERED: METO25TA4 PO (14:35)
[2019-11-24] MEDS ORDERED: BENZ100C PO (14:35)
--- NOTE | 2019-11-26 14:07 | DSH ---
DATE OF DISCHARGE: 11/22/2019 I saw the patient on 11/21/2019. FINAL DIAGNOSES: Chest pain, crescendo angina, chronic obstructive pulmonary disease, prior coronary stents, acute bronchitis. Please refer to my history and physical to the point of my impression. HOSPITAL COURSE: The patient is a 79-year-old white female who has underlying history of COPD and a myocardial perfusion scan several months ago, presented to the Emergency Room with chest heaviness, tightness with the regular sinus rhythm and RSR pattern in V1 and V2, incomplete right bundle branch block, diffuse ST-T wave changes and got nitro in the Emergency Room and subsequently required nitro on the floor and chest pain improved. She was having acute bronchitis and primarily had atelectasis and COPD and she was going to have a heart cath done on 11/23/2019, but apparently she wanted to go home and was dismissed home on 11/22/2019, and she was sent home from the ICU on Lipitor 80 mg once a day, Protonix 40 mg once a day, albuterol nebulizer treatment 4 times a day, had Xanax 0.5 mg 3 times a day, Breo Ellipta 1 puff daily, Mucinex 600 mg twice a day, Ambien 5 mg once a day. She was on Flexeril 5 mg 3 times a day on p.r.n. basis for muscle spasm and Ultram 50 mg p.o. p.r.n. I did stop her Anacin, Lasix and potassium. She was on metoprolol 25 mg twice a day because of the low blood pressure was stopped. She will come for heart catheterization as an outpatient on 11/25/2019 at 08:00 in the morning. She was supposed to take nitroglycerin on p.r.n. basis. I did give her Ranexa 500 mg twice a day in the hospital and she can continue the same. Laxmichand MD NEEMA Alfonso: SARAH/lida JOB# [id number]
== END 2019-11-22 14:25 | disposition home or self-care (01) | DRG 311 ==
LOC: ER 14:48 → EDBD 14:48 → ICU 15:57
PROVIDERS: ADMIT Specialist; ATTEND Specialist
DX: I20.0 Unstable angina (principal); I11.0 Hypertensive heart disease with heart failure; I45.10 Unspecified right bundle-branch block; J43.9 Emphysema, unspecified; J20.9 Acute bronchitis, unspecified; I50.9 Heart failure, unspecified; Z79.899 Other long term (current) drug therapy; Z95.5 Presence of coronary angioplasty implant and graft; Z88.6 Allergy status to analgesic agent; Z87.891 Personal history of nicotine dependence; Z91.041 Radiographic dye allergy status; Z79.01 Long term (current) use of anticoagulants; Z82.49 Family history of ischemic heart disease and other diseases of the circulatory system
CPT/HCPCS: 36415; 71045; 71046; 80053; 82550; 82553; 83735; 83880; 84484; 85025; 85379; 85610; 85730; 86677; 93005; 94640; 99285; G0378; J1650; J2270; J3490; J7627; J7611

== ENCOUNTER 2019-11-25 06:00 | Day surgery (SDC) | payer MEDICARE, BC ==
[~2019-11-25] VITALS: Ht 152.4 cm; Wt 49.4 kg
[~2019-11-25 06:00] MED LIST changes: +ATOR40TA PO; +METO25TA4 PO; +Metoprolol Succinate PO; +NS 1000ML 1,000 ML IV SCH; +PHENERGAN ONE; +PHENERGAN PO ONE; +RANO500T2 PO; +SOLU-MEDROL IV ONE; +SOLU-MEDROL ONE; +VALIUM ONE; +VALIUM PO ONE
== END 2019-11-25 06:34 | disposition home or self-care (01) | DRG 951 ==
LOC: CCL 06:00
PROVIDERS: ATTEND Specialist
DX: Z53.8 Procedure and treatment not carried out for other reasons (principal)
CPT/HCPCS: J2930

== ENCOUNTER 2020-01-06 07:05 | Day surgery (SDC) | payer MEDICARE, BC ==
[2020-01-04 14:07] LABS: BASOPHIL # 0.1 10^3/uL (0.0-0.1); BASOPHIL % 0.6 % (0.0-0.2); EOSINOPHIL # 0.2 10^3/uL (0.0-0.2); EOSINOPHIL % 2.9 % (0.0-5.0); LYMPHOCYTES % 18.1 % (24.0-44.0); MEAN CORP HGB 30.6 pg (26-34); MONOCYTES # 0.5 10^3/uL (0.3-0.8); MONOCYTES % 5.9 % (5.0-12.0); NEUTROPHILS % 72.4 % (41.0-85.0); PLATELET COUNT 207 10^3/uL (150-400); RED CELL DISTRIBUTION WIDTH 14.5 % (11.5-14.5)
[2020-01-04 14:18] LABS: CALCIUM 8.7 mg/dL (8.4-10.5)
--- NOTE | 2020-01-04 14:29 | DIREP ---
PROCEDURE:CHEST 2 VIEWS COMPARISON:[facility], CR, XRAY CHEST 2 VWS, 11/22/2019, 10:11 AM. INDICATIONS:PRE-OP HEART CATH, CRESENDO ANGINA, DYSPNEA FINDINGS: LUNGS/PLEURA:Hyperinflation and chronic interstitial changes. No infiltrate or pleural effusion. Breast implants. CARDIAC:Normal cardiac silhouette and normal pulmonary vascularity. Aortic arch calcifications. MEDIASTINUM:Normal. BONES:Thoracolumbar S-shaped scoliosis. OTHER:No additional findings. CONCLUSION:COPD. No acute cardiopulmonary process or significant change. Dictated by: Ivis Suh MD on 01/04/2020 at 02:34 PM
[2020-01-04 14:30] VITALS: BP 140/72
[~2020-01-06] VITALS: Ht 152.4 cm; Wt 53.5 kg
[2020-01-06] VITALS (10 sets, daily range): BP systolic 122–132; BP diastolic 61–89
[~2020-01-06 07:05] MED LIST changes: +DICL75TA2 PO; +FLUT9.9S NS; +HEPARIN ONE; +LORA1TAB48 PO; +NS 1000ML 1,000 ML ONE; -PHENERGAN ONE; -SOLU-MEDROL IV ONE; -SOLU-MEDROL ONE; +SUBLIMAZE ONE; -VALIUM ONE; +VERSED ONE; +XYLOCAINE ONE
[2020-01-06] MEDS ORDERED: VALIUM ONE (07:13)
[2020-01-06] MEDS ORDERED: PHENERGAN ONE (07:13)
[2020-01-06] MEDS ORDERED: SOLU-MEDROL ONE (09:06)
[2020-01-06] MEDS ORDERED: ULTRAM PO ONE (09:45)
[2020-01-06] MEDS ORDERED: ULTRAM ONE (09:59)
[2020-01-06] MEDS ORDERED: ASPI-484 PO (10:50)
[2020-01-06] MEDS ORDERED: ASPI-667 PO (10:50)
--- NOTE | 2020-01-06 13:05 | CCR[facility] ---
DATE OF SERVICE: 01/06/2020 HEART CATH REPORT PRECATHETERIZATION DIAGNOSES: History of crescendo angina, was admitted with unstable angina while back prior normal myocardial perfusion scan, has chronic obstructive pulmonary disease, pulmonary hypertension with diffuse ST-T wave changes on EKG suggestive of possible ischemia, assess for coronary artery disease. POSTCATHETERIZATION DIAGNOSES: Left main patent, left anterior descending type 2 with mild ostial 20% luminal irregularity. Circumflex is a good size vessel with an obtuse marginal branch, fully patent. Right coronary artery, mild luminal irregularity. No flow obstruction was documented. Normal left ventricular size with a left ventricular end-diastolic pressure of 15 mm with good wall contractility with an ejection fraction of 60%. ANESTHESIA: 2% lidocaine. PREOPERATIVE MEDICATIONS: Phenergan 25 mg p.o., Valium 2.5 mg p.o., Versed 1 mg IV and fentanyl 12.5 mcg IV, and Solu-Medrol 40 mg IV given for possible allergy to dye which does not seem to be the case when she had her last heart catheterization. ANTICOAGULATION: Heparin 2000 units intra-arterially, 2000 units in the flush solution, 1000 units in the dye solution. Dye used is Omnipaque. Total amount of 101 mL. CATHETERS: JL4 6-[place]ese, JR4 6-[place], and 6-[place] angled pigtail catheter. ARTERIAL TIME: 11 minutes. FLUOROSCOPY TIME: 3.1 minutes. PROCEDURES: Left heart catheterization, bilateral selective coronary arteriography, left ventriculography via right femoral Iam approach. NARRATION OF PROCEDURE: Under local anesthesia, right femoral artery was punctured percutaneously by arterial needle, guide wire passed in right femoral artery, 6-[place]ese Cordis sheath introduced, side port of the sheath used for femoral arterial pressure monitoring. Sheath anchored with suture. Left Iam catheter introduced over guide wire into ascending aorta left coronary artery cannulated and left coronary angiography performed in SLOVENIAN and DUFF projections with craniocaudal applications to visualize all branches. Left catheter exchanged for right coronary catheter and right coronary angiography performed in SLOVENIAN and DUFF. This catheter exchanged for 6-[place] pigtail catheter and catheter crossed the aortic valve and left ventricular LVEDP measured and LV gram performed in 30 degrees DUFF view with 30 mL Omnipaque dye and panning of descending aorta attempted. Patient tolerated procedure well. No complications of procedure. Angio-Seal deployed for hemostasis. HEMODYNAMICS: LVEDP is 15 mm, LV pressure 143/15, femoral artery pressure 121/59 with a mean of 75. No gradient across the aorta on pullback of the central catheter. FINAL CONCLUSIONS: No flow obstructive coronary artery disease, normal left ventricular function, recurrent episodes of chest heaviness and tightness may be related to pulmonary hypertension due to severe chronic obstructive pulmonary disease, nebulizer treatment and oxygen therapy to be continued, followup in the clinic in 2 weeks. Laxmichand MD Kaden DR: SARAH/lida JOB# [id number]
== END 2020-01-06 12:00 | disposition home or self-care (01) | DRG 303 ==
LOC: SDC 07:05
PROVIDERS: ATTEND Specialist
DX: I25.110 Atherosclerotic heart disease of native coronary artery with unstable angina pectoris (principal); J44.9 Chronic obstructive pulmonary disease, unspecified; I11.9 Hypertensive heart disease without heart failure; G47.00 Insomnia, unspecified; Z79.899 Other long term (current) drug therapy; Z98.890 Other specified postprocedural states; Z88.5 Allergy status to narcotic agent; Z88.8 Allergy status to other drugs, medicaments and biological substances; Z79.82 Long term (current) use of aspirin; Z82.5 Family history of asthma and other chronic lower respiratory diseases; Z80.0 Family history of malignant neoplasm of digestive organs; Z80.3 Family history of malignant neoplasm of breast
CPT/HCPCS: 36415; 71046; 80053; 85025; 85610; 93458; 99152; 99153; C1760; C1894 ×3; J1644 ×2; J2250; J2920; J3010; J7030 ×2; Q9967; C1732

== ENCOUNTER 2020-06-11 15:20 | Emergency (ER) | payer MEDICARE, BC ==
[~2020-06-11] VITALS: Ht 152.4 cm; Wt 47.6 kg
[~2020-06-11 15:20] MED LIST changes: +ASPI-485 PO; +ASPI-667 PO; -HEPARIN ONE; -NS 1000ML 1,000 ML IV SCH; -NS 1000ML 1,000 ML ONE; -PHENERGAN PO ONE; -SUBLIMAZE ONE; -VALIUM PO ONE; -VERSED ONE; -XYLOCAINE ONE
[2020-06-11 15:43] VITALS: BP 101/46
[2020-06-11 15:48] VITALS: BP 101/46
[2020-06-11 15:49] VITALS: BP 101/46
[2020-06-11] MEDS ORDERED: NORCO 10MG PO ONE (15:54)
[2020-06-11] MEDS ORDERED: NORCO 10MG PO PRN (16:00)
[2020-06-11 16:01] LABS: BASOPHIL # 0.1 10^3/uL (0.0-0.1); BASOPHIL % 0.6 % (0.0-0.2); EOSINOPHIL # 3.1 10^3/uL (0.0-0.2); EOSINOPHIL % 26.4 % (0.0-5.0); LYMPHOCYTES # 1.41 10^3/uL1 (1.0-4.8); LYMPHOCYTES % 12.1 % (24.0-44.0); MONOCYTES # 0.6 10^3/uL (0.3-0.8); MONOCYTES % 4.8 % (5.0-12.0); NEUTROPHIL # 6.5 10^3/uL (1.8-7.7); PLATELET COUNT 226 10^3/uL (150-400); RED CELL DISTRIBUTION WIDTH 13.5 % (11.5-14.5)
--- NOTE | 2020-06-11 16:01 | ER.PDOC ---
General Chief Complaint: Chest Pain-Cardiac Nature Stated Complaint: SOB,CHEST PAINS Time seen by MD: 16:00 Source: patient Exam Limitations: no limitations History of Present Illness Timing/Duration: 1 week Severity/Quality: mild Radiation: no radiation Activities at Onset: none Prior CP/Workup: Cardiolyte Scan Modifying Factors: breathing, oxygen Nitro Today/Relief: 0.4 mg x 2 Associated Symptoms: cough, shortness of breath Prior symptoms/Treatment: Similar symptoms previous Allergies: Coded Allergies: Iodinated Contrast Media (Verified Allergy, Severe, Rash, 12/18/16) HEAD TO TOE RASH AND BLISTER codeine (Verified Allergy, Mild, Nausea, 09/14/14) Sulfa (Sulfonamide Antibiotics) (Verified Allergy, Unknown, 06/11/20) hydrocodone (Verified Allergy, Unknown, 06/11/20) NAUSEA AND VOMITING Home Meds Active Scripts Aspirin (ASPIRIN) 81 Mg Tab.chew, 1 TAB PO Q48H, #30 TAB 3 Refills Prov:JADON REYES MD 01/06/20 Loratadine/Pseudoephedrine (CLARITIN-D 12 HOUR TABLET) 1 Each Tab.er.12h, 1 TAB PO DAILY24 for 10 Days, #20 TAB 0 Refills Prov:JADON REYES MD 01/04/20 Diclofenac Sodium (DICLOFENAC SODIUM) 75 Mg Tablet.dr, 1 TAB PO BID, #60 TAB 1 Refill Prov:JADON REYES MD 01/04/20 Fluticasone Propionate (Flonase Allergy Relief) 9.9 Ml [place].susp, 9.9 ML NS DAILY24 for 30 Days, SPRAYS Prov:JADON REYES MD 01/04/20 Ranolazine (RANEXA) 500 Mg Tab.er.12h, 1 TAB PO BID for 30 Days, #60 TAB 0 Refills Prov:JADON REYES MD 01/04/20 Pantoprazole Sodium (PROTONIX) 40 Mg Tablet.dr, 40 MG PO DAILY for 14 Days Prov:JADON REYES MD 11/22/19 Atorvastatin 40MG (LIPITOR 40MG) 40 Mg Tablet, 80 MG PO HS for 30 Days, TAB Prov:JADON REYES MD 11/22/19 Guaifenesin (MUCINEX) 600 Mg Tablet.er, 600 MG PO BID for 7 Days, 0 Refills Prov:ESSENCE CHOWDHURY GROUP THERAPY COUNSELOR 09/10/17 Zolpidem Tartrate (AMBIEN) 5 Mg Tablet, 1 TAB PO HS PRN for INSOMNIA, #30 TAB 0 Refills Prov:TIFFANY BYERS MD 03/15/17 Reported Medications Benzonatate (TESSALON PERLE) 100 Mg Capsule, 1 CAP PO TID PRN for COUGH, #21 CAP 11/24/19 Fluticasone/Vilanterol (Breo Ellipta 200-25 Mcg INH) 1 Each Blst.w.dev, 1 EACH IH QID 03/11/17 Alprazolam (ALPRAZOLAM) 0.5 Mg Tab.rapdis, 0.5 MG PO TID 03/11/17 Tramadol Hcl (TRAMADOL HCL) 50 Mg Tablet, 50 MG PO TID PRN for PAIN, TABLET 01/11/16 Albuterol Sulfate (ALBUTEROL SULFATE) 0.63 Mg/3 Ml Vial.neb, 1 VIAL NEB QID PRN for SHORTNESS OF BREATH, #150 MILLILITER 1 Refill 07/26/15 Past Medical History Medical History: angina, congestive heart failure, COPD, thyroid disease Surgical History: breast augmentation LMP (females 10-50): postmenopause Social History Alcohol Use: none Drug Use: none Reviewed Nursing Reviewed: Vital Signs, Abn. Noted All Other Systems: Reviewed and Negative Physical Exam General Appearance: No Apparent Distress, WD/WN HEENT: PERRL/EOMI, Normal ENT Inspection, TMs Normal, Pharynx Normal Neck: Non-Tender, Full Range of Motion, Supple, Normal Inspection Respiratory: decreased breath sounds Cardiovascular: Normal Peripheral Pulses, Regular Rate, Rhythm, No Edema, No Gallop, No JVD, No Murmur Gastrointestinal: Normal Bowel Sounds, No Organomegaly, No Pulsatile Mass, Non Tender, Soft Extremities: Normal Range of Motion, Non-Tender, Normal Inspection, No Pedal Edema, No Calf Tenderness, Normal Capillary Refill Neurologic/Psychiatric: cis coordinator II-XII NML as Tested, No Motor/Sensory Deficits, Alert, Normal Mood/Affect, Oriented x 3 Skin: Normal Color, Warm/Dry Lymphatic: No Adenopathy Results/Orders Results/Orders Orders - KATARINA OZUNA MD Cbc With Auto Diff (06/11/20 15:39) Comprehensive Metabolic Panel (06/11/20 15:39) Creatine Kinase (06/11/20 15:39) Creatine Kinase Mb (06/11/20 15:39) Probnp B-Type Gallery Or Museum Curator (06/11/20 15:39) Troponin I (06/11/20 15:39) D-Dimer (06/11/20 15:39) Blood Culture (06/11/20 15:39) Xr Chest 1v (06/11/20 15:39) PT (06/11/20 15:39) Partial Thromboplastin Time. (06/11/20 15:39) Ekg-Routine (06/11/20 15:39) Strep Screen (06/11/20 15:39) Influenza A&B (06/11/20 15:39) Urinalysis (06/11/20 15:39) Hydrocodone/Acetaminophen ([place] 10mg) (06/11/20 16:00) Hydrocodone/Acetaminophen ([place] 10mg) (06/11/20 15:54) Xr Cspine 2-3v (06/11/20 16:18) Ketorolac Tromethamine (Toradol) (06/11/20 16:18) Vital Signs Date Time Temp Pulse Resp B/P (MAP) Pulse Ox O2 Delivery O2 Flow Rate FiO2 06/11/20 15:49 98.3 106 16 101/46 (64) 90 Room Air 06/11/20 15:48 98.3 106 16 06/11/20 15:43 98.3 106 16 90 Laboratory Tests Test 06/11/20 15:50 06/11/20 15:56 White Blood Count 11.6 10^3/uL (4.5-11.0) H Red Blood Count 4.32 10^6/uL (4.00-5.20) Hemoglobin 13.4 g/dL (12.0-15.0) Hematocrit 40.2 % (36.0-46.0) Mean Corpuscular Volume 93.1 fL (78-100) Mean Corpuscular Hemoglobin 31.0 pg (26-34) Mean Corpuscular Hemoglobin Concent 33.3 g/dL (33-36.5) Red Cell Distribution Width 13.5 % (11.5-14.5) Platelet Count 226 10^3/uL (150-400) Mean Platelet Volume 9.4 fL (7.8-11.0) Neutrophils (%) (Auto) 56.0 % (41.0-85.0) Lymphocytes (%) (Auto) 12.1 % (24.0-44.0) L Monocytes (%) (Auto) 4.8 % (5.0-12.0) L Neutrophils # (Auto) 6.5 10^3/uL (1.8-7.7) Lymphocytes # (Auto) 1.41 10^3/uL1 (1.0-4.8) Monocytes # (Auto) 0.6 10^3/uL (0.3-0.8) Absolute Immature Granulocyte (auto 0.01 10^3 u/L (0-2) Absolute Eosinophils (auto) 3.1 10^3/uL (0.0-0.2) H Immature Granulocytes % 0.10 % (0.00-0.50) Eosinophils % 26.4 % (0.0-5.0) H Basophils % 0.6 % (0.0-0.2) H Basophils # 0.1 10^3/uL (0.0-0.1) Prothrombin Time 11.7 SEC (9.3-11.3) H Prothrombin Time INR (Non-Therap) 1.2 Activated Partial Thromboplast Time 25.9 SEC (24.67-30.72) D-Dimer 0.55 mg/L (0.19-0.49) *H Sodium Level 137 mmol/L (132-145) Potassium Level 3.6 mmol/L (3.6-5.2) Chloride Level 103.0 mmol/L (96-109) Carbon Dioxide Level 22.3 mmol/L (20.0-32) Anion Gap 15.3 Blood Urea Nitrogen 11 mg/dL (7-18) Creatinine 0.85 mg/dL (0.59-1.40) Estimated GFR () 78.5 (>/=60) Est GFR (CKD-EPI)(Non-Afr [place]i) 64.9 (>/=60) BUN/Creatinine Ratio 12.0 Glucose Level 84 mg/dL (70-110) Calcium Level 8.6 mg/dL (8.4-10.5) Total Bilirubin 0.5 mg/dL (0.2-1.0) Aspartate Amino Transferase (AST) 17 U/L (0-35) Alanine Aminotransferase (ALT) 16 U/L (12-78) Alkaline Phosphatase 225 U/L (50-136) H Total Creatine Kinase 60 U/L (26-192) Creatine Kinase MB 1.0 ng/mL (0.5-3.6) Troponin I < 0.02 ng/mL (0.00-0.05) Pro-B-Type Natriuretic Peptide 304 pg/mL (0-450) Total Protein 6.7 g/dL (6.4-8.2) Albumin 3.4 g/dL (3.4-5.0) Globulin 3.3 Influenza Type A Antigen NEGATIVE (NEG) Influenza B Immunofluorescence NEGATIVE (NEG) Group A Streptococcus Screen POSITIVE (NEGATIVE) EKG/XRAY/CT/US EKG: NSR, RBBB Departure Time of Disposition: 17:00 Disposition: 01 HOME, SELF-CARE Impression: Primary Impression: Chest pain Additional Impressions: COPD exacerbation Pharyngitis Condition: Improved Referrals: JOHN OSMAN GROUP THERAPY COUNSELOR (PCP) PRIMARY CARE PROVIDER Duration or Time Spent with Pa: 15m Problem Qualifiers KATARINA OZUNA MD Jun 11, 2020 16:00
[2020-06-11] MEDS ORDERED: TORADOL IM STA (16:18)
--- NOTE | 2020-06-11 16:20 | DIREP ---
PROCEDURE:CHEST 1 VIEW COMPARISON:[facility], CR, XRAY CHEST 2 VWS, 01/04/2020, 01:59 PM. [facility], CR, XRAY CHEST 2 VWS, 11/22/2019, 10:11 AM. INDICATIONS:COPD FINDINGS: LUNGS/PLEURA:Hyperaeration consistent with COPD. Mildly increased interstitial markings left lower lung which were present on prior studies consistent with scarring. No new infiltrates. VASCULATURE:Normal. Unremarkable pulmonary vasculature. CARDIAC:Normal. No cardiac silhouette abnormality or cardiomegaly. MEDIASTINUM:Calcified aortic arch. BONES:Normal. No fracture or visible bony lesion. OTHER:Bilateral breast implants. CONCLUSION:COPD with mild scarring in the left base unchanged from prior studies. Dictated by: Sumanth Chowdhury M.D. on 06/11/2020 at 04:15 PM
[2020-06-11 16:27] LABS: ALANINE AMINOTRANSFERASE(ML) 16 U/L (12-78); ALKALINE PHOSPHATASE 225 U/L (50-136); ASPARTATE AMINO TRANSFERASE 17 U/L (0-35); CALCIUM 8.6 mg/dL (8.4-10.5); CARBON DIOXIDE 22.3 mmol/L (20.0-32); GLUCOSE 84 mg/dL (70-110)
[2020-06-11] MEDS ORDERED: TORADOL ONE (16:41)
--- NOTE | 2020-06-11 17:08 | DIREP ---
PROCEDURE:C-Spine 3 views TECHNIQUE:AP, lateral, and dens views of the cervical spine are provided. COMPARISON:None. INDICATIONS:djd FINDINGS: ALIGNMENT:Slight retrolisthesis of C3 with respect to C4. VERTEBRAE:Preservation of vertebral body height. C7 is only partly visualized on the lateral view. The open-mouth odontoid view is limited with secondary to overlapping bony structures. The frontal view is markedly limited in that C1, C2 and portion of C3 are not visualized well. Galn-ol-lvvgfxkj degenerative facet changes involving C4 through C6. DISK SPACES:Moderate to marked loss of disc space of C3/C4 with retrolisthesis and small posterior osteophytes of C3 of the measures 2.7 mm posteriorly. CERVICAL RIBS:None. OTHER:No prevertebral soft tissue swelling. CONCLUSION: 1. Limited study secondary to positioning with respect to the frontal view of C1 through C7 and a lateral view of C7. If there is concern for fracture other injury, CT may prove more sensitive. 2. Multilevel degenerative disc and facet changes in the cervical spine with small posterior endplate osteophyte retrolisthesis noted of C3. If there are any neurologic symptoms, MRI may be helpful. Dictated by: Umer Dubon MD on 06/11/2020 at 05:03 PM
[2020-06-11 19:00] LABS: EOSINOPHIL 27 % (1-4); LYMPHOCYTE 14 % (25-36); MONOCYTE 3 % (3-9); SEGMENTED NEUTROPHILS 56 % (31-76)
--- NOTE | 2020-06-11 19:01 | PCM.EKG ---
[facility] Test Date: 2020-06-11 Test Time: 15:27:55 Pat Name: GABBIE ECHAVARRIA Department: Room: Gender: F Director Talent Acquisition: MINERVA : 1940 Requested By: KATARINA OZUNA Order Number: [id number] Reading MD: Measurements Intervals [place] Rate: 91 P: 81 CA: 135 QRS: -72 QRSD: 116 T: 87 QT: 389 QTc: 479 Interpretive Statements Sinus rhythm Incomplete RBBB and LAFB Probable left ventricular hypertrophy No previous ECG available for comparison Please click the below link to view image of tracing.
== END 2020-06-11 17:05 | disposition home or self-care (01) ==
LOC: ER 15:20
DX: J44.1 Chronic obstructive pulmonary disease with (acute) exacerbation (principal); I50.9 Heart failure, unspecified; E07.9 Disorder of thyroid, unspecified; Z79.51 Long term (current) use of inhaled steroids; Z79.82 Long term (current) use of aspirin; Z79.899 Other long term (current) drug therapy; Z88.2 Allergy status to sulfonamides; Z88.5 Allergy status to narcotic agent
CPT/HCPCS: 36415; 71045; 72040; 80053; 82550; 82553; 83880; 84484; 85025; 85379; 85610; 85730; 87040; 87804 ×2; 87880; 93005; 96372; 99285; J1885

== ENCOUNTER 2020-11-26 19:27 | Inpatient (IN) | payer MEDICARE, BC ==
[2020-11-26] VITALS (8 sets, daily range): BP systolic 113–192; BP diastolic 69–114
[~2020-11-26] VITALS: Ht 152.4 cm; Wt 56.7 kg
--- NOTE | 2020-11-26 19:23 | ER.PDOC ---
General Chief Complaint: Requesting Medical Care Stated Complaint: SOB Time seen by MD: 19:16 Source: patient, EMS Exam Limitations: no limitations History of Present Illness Initial Comments Patient c/o sudden onset dyspnea awakening her from sleep this evening. She took 2 albuterol neb treatments without relief and increased her usual 2L NC oxygen to 4L, again without relief. She denies any CP, nausea or diaphoresis. EMS gave a xopenex treatment without relief. Oxygen saturations (with supplemental oxygen) have remained 96% Timing/Duration: 1 hour Severity: moderate Activities at Onset: sleep Prior Episodes/Possible Cause: chronic episodes (of respiratory difficulties) Modifying Factors: improves with albuterol nebulizer (x 2 no relief) Associated Symptoms: denies symptoms Allergies: Coded Allergies: Iodinated Contrast Media (Verified Allergy, Severe, Rash, 12/18/16) HEAD TO TOE RASH AND BLISTER codeine (Verified Allergy, Mild, Nausea, 09/14/14) Sulfa (Sulfonamide Antibiotics) (Verified Allergy, Unknown, 06/11/20) hydrocodone (Verified Allergy, Unknown, 06/11/20) NAUSEA AND VOMITING Home Meds Active Scripts Aspirin (ASPIRIN) 81 Mg Tab.chew, 1 TAB PO Q48H, #30 TAB 3 Refills Prov:JADON REYES MD 01/06/20 Loratadine/Pseudoephedrine (CLARITIN-D 12 HOUR TABLET) 1 Each Tab.er.12h, 1 TAB PO DAILY24 for 10 Days, #20 TAB 0 Refills Prov:JADON REYES MD 01/04/20 Diclofenac Sodium (DICLOFENAC SODIUM) 75 Mg Tablet.dr, 1 TAB PO BID, #60 TAB 1 Refill Prov:JADON REYES MD 01/04/20 Fluticasone Propionate (Flonase Allergy Relief) 9.9 Ml [place].susp, 9.9 ML NS DAILY24 for 30 Days, SPRAYS Prov:JADON REYES MD 01/04/20 Ranolazine (RANEXA) 500 Mg Tab.er.12h, 1 TAB PO BID for 30 Days, #60 TAB 0 Refills Prov:JADON REYES MD 01/04/20 Pantoprazole Sodium (PROTONIX) 40 Mg Tablet.dr, 40 MG PO DAILY for 14 Days Prov:JADON REYES MD 11/22/19 Atorvastatin 40MG (LIPITOR 40MG) 40 Mg Tablet, 80 MG PO HS for 30 Days, TAB Prov:JADON REYES MD 11/22/19 Guaifenesin (MUCINEX) 600 Mg Tablet.er, 600 MG PO BID for 7 Days, 0 Refills Prov:ESSENCE CHOWDHURY ONBOARDING SPECIALIST 09/10/17 Zolpidem Tartrate (AMBIEN) 5 Mg Tablet, 1 TAB PO HS PRN for INSOMNIA, #30 TAB 0 Refills Prov:TIFFANY BYERS MD 03/15/17 Reported Medications Benzonatate (TESSALON PERLE) 100 Mg Capsule, 1 CAP PO TID PRN for COUGH, #21 CAP 11/24/19 Fluticasone/Vilanterol (Breo Ellipta 200-25 Mcg INH) 1 Each Blst.w.dev, 1 EACH IH QID 03/11/17 Alprazolam (ALPRAZOLAM) 0.5 Mg Tab.rapdis, 0.5 MG PO TID 03/11/17 Tramadol Hcl (TRAMADOL HCL) 50 Mg Tablet, 50 MG PO TID PRN for PAIN, TABLET 01/11/16 Albuterol Sulfate (ALBUTEROL SULFATE) 0.63 Mg/3 Ml Vial.neb, 1 VIAL NEB QID PRN for SHORTNESS OF BREATH, #150 MILLILITER 1 Refill 07/26/15 Past Medical History Medical History: coronary artery disease, congestive heart failure, COPD, high cholesterol Social History Smoking: non-smoker Alcohol Use: none Drug Use: none Review of Systems Constitutional: denies no symptoms reported, denies see HPI, denies chills, denies diaphoresis, denies fever, denies malaise, denies weakness, denies other EENTM: denies no symptoms reported, denies see HPI, denies eye pain, denies blurred vision, denies tearing, denies double vision, denies ear pain, denies ear discharge, denies nose pain, denies nose congestion, denies throat pain, denies throat swelling, denies mouth pain, denies mouth swelling, denies other Respiratory: shortness of breath Cardiovascular: denies no symptoms reported, denies see HPI, denies chest pain, denies edema, denies palpitations, denies syncope, denies other Gastrointestinal: denies no symptoms reported, denies see HPI, denies abdominal pain, denies constipation, denies diarrhea, denies nausea, denies vomiting, denies other Musculoskeletal: denies no symptoms reported, denies see HPI, denies back pain, denies gout, denies joint pain, denies joint swelling, denies muscle pain, denies muscle stiffness, denies neck pain, denies other Skin: denies no symptoms reported, denies see HPI, denies change in color, denies change in hair/nails, denies dryness, denies lesions, denies lumps, denies rash, denies other All Other Systems: Reviewed and Negative Physical Exam General Appearance: Mild Distress HEENT: PERRL/EOMI, Normal ENT Inspection Neck: Non-Tender, Full Range of Motion, Supple Respiratory: respiratory distress (tachypnea), decreased breath sounds, accessory muscle use, wheezing (diffuse expiratory) Cardiovascular: No Murmur, Tachycardia Gastrointestinal: Normal Bowel Sounds, Non Tender Extremities: Non-Tender, Normal Inspection, No Pedal Edema, No Calf Tenderness Neurologic/Psychiatric: Alert, Normal Mood/Affect, Oriented x 3 Skin: Normal Color, Warm/Dry Results/Orders Results/Orders Orders - DEMETRIUS JENKINS DO Cbc With Auto Diff (11/26/20 19:41) Comprehensive Metabolic Panel (11/26/20 19:41) Creatine Kinase (11/26/20 19:41) Creatine Kinase Mb (11/26/20 19:41) Troponin I (11/26/20 19:41) Probnp B-Type [place] (11/26/20 19:41) PT (11/26/20 19:41) Partial Thromboplastin Time. (11/26/20 19:41) Helicobacter Pylori (11/26/20 19:41) D-Dimer (11/26/20 19:41) Ekg-Routine (11/26/20 19:41) Ipratropium/Albuterol Sulfate (Duo 0.5-3 (11/26/20 19:48) Xr Chest 1v (11/26/20 19:41) Ipratropium/Albuterol Sulfate (Duo 0.5-3 (11/26/20 20:19) Covid19 Antigen Afsaneh Natividad (11/26/20 20:40) Nitroglycerin (Nitrostat) (11/26/20 21:21) Ekg-Routine (11/26/20 21:21) Dexamethasone Sodium Phosphate (Decadron (11/26/20 21:28) Vital Signs Date Time Temp Pulse Resp B/P (MAP) Pulse Ox O2 Delivery O2 Flow Rate FiO2 11/26/20 21:26 97.8 90 18 136/86 (103) 97 Nasal [place]ula 3.00 11/26/20 19:53 96 24 95 11/26/20 19:53 100 24 98 11/26/20 19:32 97.8 99 20 11/26/20 19:32 97.8 99 20 95 11/26/20 19:32 97.8 99 20 166/78 (107) 95 Nasal Canula 3.00 Administered Medications Medications (Trade) Dose Ordered Sig/Beth Route PRN Reason Start Time Stop Time Status Last Admin Dose Admin Albuterol/ Ipratropium (Duo 0.5-3(2.5) Mg/3 ml) 3 ml STAT STAT IH 11/26/20 20:19 11/26/20 20:20 DC 11/26/20 20:19 3 ML Laboratory Tests Test 11/26/20 19:48 11/26/20 20:45 White Blood Count 10.2 10^3/uL (4.5-11.0) Red Blood Count 4.53 10^6/uL (4.00-5.20) Hemoglobin 13.9 g/dL (12.0-15.0) Hematocrit 42.6 % (36.0-46.0) Mean Corpuscular Volume 94.0 fL (78-100) Mean Corpuscular Hemoglobin 30.7 pg (26-34) Mean Corpuscular Hemoglobin Concent 32.6 g/dL (33-36.5) L Red Cell Distribution Width 13.3 % (11.5-14.5) Platelet Count 186 10^3/uL (150-400) Mean Platelet Volume 9.7 fL (7.8-11.0) Neutrophils (%) (Auto) 77.1 % (41.0-85.0) Lymphocytes (%) (Auto) 15.4 % (24.0-44.0) L Monocytes (%) (Auto) 4.9 % (5.0-12.0) L Neutrophils # (Auto) 7.9 10^3/uL (1.8-7.7) H Lymphocytes # (Auto) 1.57 10^3/uL1 (1.0-4.8) Monocytes # (Auto) 0.5 10^3/uL (0.3-0.8) Absolute Immature Granulocyte (auto 0.01 10^3 u/L (0-2) Absolute Eosinophils (auto) 0.2 10^3/uL (0.0-0.2) Immature Granulocytes % 0.10 % (0.00-0.50) Eosinophils % 2.0 % (0.0-5.0) Basophils % 0.5 % (0.0-0.2) H Basophils # 0.1 10^3/uL (0.0-0.1) Prothrombin Time 10.8 SEC (9.3-11.3) Prothrombin Time INR (Non-Therap) 1.1 Activated Partial Thromboplast Time 24.4 SEC (24.67-30.72) D-Dimer 0.48 mg/L (0.19-0.49) Sodium Level 141 mmol/L (132-145) Potassium Level 3.7 mmol/L (3.6-5.2) Chloride Level 104.0 mmol/L (96-109) Carbon Dioxide Level 30.8 mmol/L (20.0-32) Anion Gap 9.9 Blood Urea Nitrogen 12 mg/dL (7-18) Creatinine 0.79 mg/dL (0.59-1.40) Estimated GFR () 85.2 (>/=60) Est GFR (CKD-EPI)(Non-Afr Citizen Of [place]) 70.4 (>/=60) BUN/Creatinine Ratio 15.0 Glucose Level 109 mg/dL (70-110) Calcium Level 8.5 mg/dL (8.4-10.5) Total Bilirubin 0.2 mg/dL (0.2-1.0) Aspartate Amino Transferase (AST) 17 U/L (0-35) Alanine Aminotransferase (ALT) 13 U/L (12-78) Alkaline Phosphatase 101 U/L (50-136) Total Creatine Kinase 60 U/L (26-192) Creatine Kinase MB 1.5 ng/mL (0.5-3.6) Troponin I 0.23 ng/mL (0.00-0.05) H Pro-B-Type Natriuretic Peptide 148 pg/mL (0-450) Total Protein 6.7 g/dL (6.4-8.2) Albumin 3.6 g/dL (3.4-5.0) Globulin 3.1 Albumin/Globulin Ratio 1.161 Helicobacter pylori Screen NEGATIVE (NEGATIVE) SARS-CoV-2 Antigen (Rapid) NEGATIVE (NEGATIVE) Progress Progress troponin elevated 0.23. Discussed troponin elevation with Dr. Reyes + texted him a copy of the EKG that says "acute NE"--we agree EKG does not exhibit AMI. He asked me to give nitroglycerin and repeat EKG then call him back. @ 1 DR. Reyes agreed to admit patient for observation EKG/XRAY/CT/US EKG Comments: Machine reads "acute NE"; I disagree, NSR VR 97, no acute STT changes XRAY: chest (no acute cardiopulmonary process) Consult/PCP Time Consult/PCP Called: 21:20 Consult/PCP: Dr. Reyes Reason/Comments: texted copy EKG, discussed elevated troponin ER DEPART Departure Time of Disposition: 21:29 Disposition: 09 ADMITTED INPATIENT Impression: Primary Impression: Dyspnea Additional Impressions: Elevated troponin I level COPD (chronic obstructive pulmonary disease) CAD (coronary artery disease) Condition: Improved Duration or Time Spent with Pa: 35 min Problem Qualifiers Primary Impression: Dyspnea Dyspnea type: shortness of breath Qualified Codes: R06.02 - Shortness of breath Additional Impressions: COPD (chronic obstructive pulmonary disease) COPD type: emphysema Emphysema type: panlobular Qualified Codes: J43.1 - Panlobular emphysema CAD (coronary artery disease) Coronary Disease-Associated Artery/Lesion type: unspecified vessel or lesion type [place] vs. transplanted heart: [place] heart Associated angina: without angina Qualified Codes: I25.10 - Atherosclerotic heart disease of [place] coronary artery without angina pectoris DEMETRIUS JENKINS DO Nov 26, 2020 19:23
[2020-11-26] MEDS ORDERED: DUO 0.5-3(2.5) MG/3 ML IH ONE (19:48)
--- NOTE | 2020-11-26 19:48 | PCM.EKG ---
[facility] Test Date: 2020-11-26 Test Time: 19:38:48 Pat Name: GABBIE ECHAVARRIA Department: Room: 333 Gender: F Cell Lead: DANIEL : 1940 Requested By: DEMETRIUS JOLLEY Order Number: [id number] Reading MD: Munira Jolley Measurements Intervals [place] Rate: 97 P: 84 UT: 158 QRS: -71 QRSD: 106 T: 72 QT: 390 QTc: 496 Interpretive Statements Sinus rhythm Left anterior fascicular block Anterolateral infarct, acute (LAD) ST elevation, consider inferior injury Compared to ECG 06/11/2020 15:27:55 Myocardial infarct finding now present ST (T wave) deviation now present Incomplete right bundle-branch block no longer present Right bundle-branch block no longer present Electronically Signed On 11-29-2020 7:02:18 CLIENT MANAGER LARGE LAW by Munira Jolley Please click the below link to view image of tracing.
[2020-11-26 19:54] LABS: BASOPHIL # 0.1 10^3/uL (0.0-0.1); BASOPHIL % 0.5 % (0.0-0.2); EOSINOPHIL # 0.2 10^3/uL (0.0-0.2); LYMPHOCYTES # 1.57 10^3/uL1 (1.0-4.8); LYMPHOCYTES % 15.4 % (24.0-44.0); MEAN CORP HGB 30.7 pg (26-34); MONOCYTES # 0.5 10^3/uL (0.3-0.8); MONOCYTES % 4.9 % (5.0-12.0); NEUTROPHIL # 7.9 10^3/uL (1.8-7.7); NEUTROPHILS % 77.1 % (41.0-85.0); PLATELET COUNT 186 10^3/uL (150-400); RED CELL DISTRIBUTION WIDTH 13.3 % (11.5-14.5)
--- NOTE | 2020-11-26 20:14 | DIREP ---
PROCEDURE:CHEST 1 VIEW COMPARISON:[facility], CR, XRAY CHEST SINGLE VW, 06/11/2020, 03:39 PM. INDICATIONS:DYSPNEA FINDINGS: LUNGS/PLEURA:Hyperinflation and chronic interstitial changes. No infiltrate or pleural effusion. Breast implants. CARDIAC:Normal cardiac silhouette and normal pulmonary vascularity. Thoracic aortic calcification. MEDIASTINUM:Normal. BONES:Normal. OTHER:No additional findings. CONCLUSION:Emphysema. No acute cardiopulmonary process or significant change. Dictated by: Ivis Suh MD on 11/26/2020 at 08:12 PM
[2020-11-26] MEDS ORDERED: DUO 0.5-3(2.5) MG/3 ML IH STA (20:19)
[2020-11-26 20:20] LABS: CALCIUM 8.5 mg/dL (8.4-10.5); CARBON DIOXIDE 30.8 mmol/L (20.0-32)
[2020-11-26] MEDS ORDERED: NITROSTAT SL STA (21:21)
--- NOTE | 2020-11-26 21:25 | NUR ---
NITRO 1 SPRAY NITRO ADMINISTERED AT THIS TIME PER VERBAL ORDER FROM DR. JENKINS.
[2020-11-26] MEDS ORDERED: DECADRON IV STA (21:28)
[2020-11-26] MEDS ORDERED: LOVENOX SQ STA (21:41)
[2020-11-26] MEDS ORDERED: ROCEPHIN 1,000 MG in NS 100ML 100 ML IV STA (21:41)
[2020-11-26] MEDS ORDERED: NITRO-DUR 0.2MG PATCH TD STA (21:41)
--- NOTE | 2020-11-26 21:51 | PCM.EKG ---
[facility] Test Date: 2020-11-26 Test Time: 21:45:06 Pat Name: GABBIE ECHAVARRIA Department: Room: 333 Gender: F Service Station Cashier: DANIEL : 1940 Requested By: DEMETRIUS JOLLEY Order Number: [id number] Reading MD: Munira Jolley Measurements Intervals [place] Rate: 84 P: 81 IN: 141 QRS: -65 QRSD: 105 T: 57 QT: 393 QTc: 465 Interpretive Statements Sinus rhythm Inferior infarct, old Anterolateral infarct, acute (LAD) Compared to ECG 11/26/2020 19:38:48 Left anterior fascicular block no longer present ST (T wave) deviation no longer present Myocardial infarct finding still present Electronically Signed On 11-29-2020 7:02:37 TENNIS NET MAKER by Munira Jolley Please click the below link to view image of tracing.
[2020-11-26] MEDS: ROCEPHIN 1,000 MG in NS 100ML 100 ML IV SCH (22:00)
[2020-11-26] MEDS ORDERED: ASPIRIN PO SCH (22:00)
[2020-11-26] MEDS ORDERED: NS 100ML 100 ML IV ONE (22:21)
[2020-11-26] MEDS ORDERED: ROCEPHIN ONE (22:22)
[2020-11-26] MEDS ORDERED: NITRO-DUR 0.2MG PATCH TD ONE (22:22)
[2020-11-26] MEDS ORDERED: LOVENOX SQ ONE (22:23)
--- NOTE | 2020-11-26 22:25 | DIREP ---
PROCEDURE:CT CHEST W/O COMPARISON:[facility], CT, CT CHEST W/O, 03/11/2017, 07:52 PM. INDICATIONS:pneumonia TECHNIQUE:Helical sections through the chest were performed from the lung apices through the diaphragms without IV contrast. Sagittal and coronal reconstructions are obtained from source images. FINDINGS: LUNGS:Likely atelectasis in the right middle and left lower lobes. Difficult to exclude acute minimal ground-glass infiltrate however... No visible pulmonary disease. Obstructive lung disease changes otherwise noted. PLEURA:Normal. No mass or effusion. CARDIAC:Normal. No enlargement, pericardial thickening, or significant calcification. 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 Malignant until proven otherwise. Suggest biopsy.. Large subcarinal lymph nodes measuring up to 1.3 cm short axis.. RUBI:Normal. No mass or adenopathy. AORTA:Normal. No aneurysm. CHEST WALL:Normal. No mass or axillary adenopathy. LIMITED ABDOMEN:2.4 cm splenic cyst. Limited images of the upper abdomen are unremarkable. BONES: T7 and T9 vertebral hemangiomas. Increased kyphosis. No suspicious lesion or fracture. OTHER:Bilateral breast implants. CONCLUSION: 1. Large right thyroidal mass. Suggest biopsy. 2. Likely bibasilar atelectasis. Cannot entirely exclude minimal early developing ground-glass infiltrates, most prominently in the left lower lobe.. Chronic obstructive lung disease changes. Dictated by: Vinod Ivy DO on 11/26/2020 at 10:19 PM
[2020-11-26] MEDS ORDERED: [UNRECOGNIZED DRUG - REMARK] IV SCH (22:30)
--- NOTE | 2020-11-26 22:30 | NUR ---
LESLIE DE LA CRUZ IN PT ROOM FOR ECHO AT THIS TIME.
--- NOTE | 2020-11-26 22:57 | NUR ---
REPORT CALLED AND GIVEN TO RENE BUTT AT THIS TIME.
[2020-11-26 22:59] LABS: ABG PCO2 41.2 mmHg (35.0-45.0); ABG PH 7.399 (7.350-7.450); BE(B) 0.1 mmol/L (-2.0-2.0); HCO3act 24.9 mmol/L (22.0-26.0); pO2 76.3 mmHg (80.0-100.0)
--- NOTE | 2020-11-26 23:05 | NUR ---
Received report from SR. OPERATIONS MANAGER at [id number]. Pt arrived to ICU at 2305. Placed on all monitors. Acute respiratory distress with RR 35-40/min with deep respiratory effort. o2 sats 95-97% on 2L/NC/minute. Stach 105 on stock parts fabricator. IV site to right f/a flushed and patent. Pt anxious stating that she does not know if she is going to make it through this. Pt states she has chronic SOB with productive cough and wheezes at home due to COPD. Pt states she was never a smoker or exposed to smoke, but she and her first had exposure to a chemical. Pt wearing her own pajamas per her choice. Orders received by Dr. Alfonso.
--- NOTE | 2020-11-26 23:53 | NUR ---
INTEGRILIN DRIP DR REYES AT BEDSIDE. RECEIVED ORDER TO GIVE 5 MG IV BOLUS X 1. THEN START DRIP AT 3 ML/HR. RBVO. ORDER CARRIED OUT ACCORDINGLY. INTEGRILIN DRIP STARTED. Addendum: 11/27/20 at 0132 by Susan Gay RN- MODEL DRESSER TIME STAMP CORRECTION: [id number]
--- NOTE | 2020-11-26 23:53 | NUR ---
TELEPHONE CALL TO DR REYES RELAYED THAT PATIENT STILL IS COMPLAINING OF CHEST PAIN 04/20, WITH CLAMMY SKIN, JVD, SHORTNESS OF BREATH STATED "I CAN'T BREATH". NOTIFIED TROPONIN LEVEL 3.36. RECEIVED ORDER TO GIVE MORPHINE 2 MG IVQ4 PRN, START PATIENT ON NITROGLYCERIN DRIP @ 10 ML/HR. RBTO. Addendum: 11/27/20 at 0012 by Susan Gay RN- STOCK PREPARATION OPERATOR INFORMED DR REYES THAT PATIENT IS REQUESTING TO BE DNI/DNR.
[2020-11-26] MEDS ORDERED: NITROGLYCERIN 25MG/D5W 250ML 250 ML IV ONE (23:54)
[2020-11-26] MEDS: AMBIEN PO PRN (23:55)
[2020-11-26] MEDS: NS 1000ML/KCL 20MEQ 1,000 ML IV SCH ×2 (23:55)
[2020-11-26] MEDS ORDERED: MORPHINE SULFATE ONE (23:56)
[2020-11-27] VITALS (77 sets, daily range): BP systolic 91–168; BP diastolic 37–110
[2020-11-27] MEDS ORDERED: NITROGLYCERIN 25MG/D5W 250ML 250 ML IV SCH
--- NOTE | 2020-11-27 | NUR ---
RN started 2nd IV site for Nitroglycerin infusion to left outer F/A site 20 G. Good blood return noted. Nitroglycerin infusion started at 10 ml/hour= 16.6 mcgs/min per Dr. Alfonso's order. at bedside speaking to pt. MD aware pt wants to be a DNR/DNI now and pt is refusing to be transferred to [place], [place] for possible heart cath and intervention if needed. RN spoke to pt's daughter Jessica Cardenas at 2335 and updated on full condition including pt refuses to tx to [place]. Daughter states that she will speak to her Mom about it. Pt aware several treatments being done stat for her SOB and CHF.
[2020-11-27] MEDS ORDERED: LASIX IV STA (00:06)
--- NOTE | 2020-11-27 00:07 | PCM.EKG ---
[facility] Test Date: 2020-11-27 Test Time: 00:02:43 Pat Name: GABBIE ECHAVARRIA Department: Room: ICU1 Gender: F Physics Technical Officer: NGHIA : 1940 Requested By: JADON REYES Order Number: [id number] Reading MD: Measurements Intervals [place] Rate: 102 P: 90 SC: 152 QRS: -64 QRSD: 103 T: 80 QT: 371 QTc: 484 Interpretive Statements Sinus tachycardia Consider right atrial enlargement LAD, consider left anterior fascicular block Anterolateral infarct, acute (LAD) Compared to ECG 11/26/2020 21:45:06 Sinus rhythm no longer present Myocardial infarct finding still present Please click the below link to view image of tracing.
[2020-11-27] MEDS: MORPHINE SULFATE IV PRN ×2 (00:10→05:54)
--- NOTE | 2020-11-27 00:20 | NUR ---
Olivas catheter inserted per MD order post lasix given. Pt has voided 3x since arrival at 2305. Nitroglycerin infusion increased to 60 mcgs/min = 36 ml/hour per Dr. Alfonso's order. MD at bedside. NS with 20 meqKCL infusing at 75 ml/hour decreased to 30 ml/hour per MD order now.
[2020-11-27] MEDS ORDERED: LOVENOX ONE (00:32)
[2020-11-27] MEDS ORDERED: PLAVIX ONE ×2 (00:36→18:32)
[2020-11-27] MEDS ORDERED: [UNRECOGNIZED DRUG - REMARK] IV ONE (00:37)
[2020-11-27] MEDS ORDERED: ASPIRIN ONE ×2 (00:40→18:31)
[2020-11-27] MEDS ORDERED: COZAAR ONE (00:48)
[2020-11-27] MEDS ORDERED: ZOFRAN ONE (00:57)
[2020-11-27] MEDS: ZOFRAN IV PRN (01:00)
--- NOTE | 2020-11-27 01:00 | NUR ---
Daughter at bedside speaking to pt re: transfer to [facility]. Pt still refuses. Pt also informed daughter she does not want to be resuscitated if anything happens to her. Pt still c/o burning and irritation at Jennings insertion site. Pt states that she does not like it. RN explained to pt that she needs to keep jennings catheter for lasix diuretic effect which will take at least 2-3 hours. BP stable now
[2020-11-27] MEDS ORDERED: PLAVIX PO STA ×2 (01:15→16:11)
[2020-11-27] MEDS ORDERED: COZAAR PO STA (01:15)
[2020-11-27] MEDS ORDERED: ASPIRIN EC PO STA ×2 (01:15→16:11)
[2020-11-27] MEDS ORDERED: LOVENOX SQ STA (01:21)
--- NOTE | 2020-11-27 01:25 | HPH ---
ADMIT DATE: 11/26/2020 CHIEF COMPLAINT: Chest heaviness, tightness, shortness of breath. HISTORY OF PRESENT ILLNESS: The patient is a 80-year-old white female who has a known history of end-stage COPD and pulmonary hypertension, cor pulmonale, and she has had previous cardiac catheterization in 2017. No flow obstructive coronary artery disease was noted and subsequently she had a catheterization done in early part of 2019. She did not have any flow obstruction and had pulmonary hypertension and her LV function was 40-45% and she around 5:00 this evening developed chest heaviness, tightness and shortness of breath and became extremely dyspneic and initially thought was having a panic attack, came to the Emergency Room and was noted to have mild troponin elevation with EKG showing loss of R forces, V1 through V3, which is not a new change, but minimal ST elevations are noted in V3 through V6. The patient did not want to go to [place] and she was admitted in ICU. She wanted to be DNR and wanted to be treated medically recyclable materials distributor was not available because of it being a Saturday and staff was not on-call. I gave the patient a choice and talked to the daughter for her to be transferred to [place], but she insisted on staying here and wanted to be DNR. She was having non-ST elevation myocardial infarction, although in the past she has manifested such findings of troponin elevation and chest pain without any flow obstruction, so very likely she could have underlying cardiomyopathy. Echo was obtained and her ejection fraction was 38% and the septum was severely hypokinetic and posterior wall was also hypokinetic. Hence, the patient was admitted to ICU and started on IV nitro along with Integrilin drip and aspirin, Plavix and losartan and oxygen along with nebulizer treatment and steroids. ALLERGIES: CODEINE, IODINE. MEDICATIONS: She is on Ambien 5 mg once a day, Protonix 40 mg once a day, Xanax 0.5 mg 3 times a day, tramadol 50 mg once a day, Lipitor 80 mg once a day. She is on Ranexa 500 mg twice a day, albuterol nebulizer treatment. She takes prednisone. Periodically see the attached list from my office notes. PAST MEDICAL HISTORY: Hypertension, hypertensive heart disease, COPD, cor pulmonale, pulmonary hypertension, recurrent exacerbation of COPD and non-flow obstructive coronary artery disease based on 2 cardiac catheterizations, may have cardiomyopathy, history of panic attacks. SOCIAL HISTORY: She is not a smoker. No history of any ethanol abuse. FAMILY HISTORY: Positive for heart problems. Mother of heart problems, history of hypertension, and history of kidney problems in the family. PAST SURGICAL HISTORY: D and C and she has breast implants. PHYSICAL EXAMINATION: GENERAL: She is alert, awake, oriented, and she was slightly cold and clammy. VITAL SIGNS: Pulse was 115, 160/100 blood pressure, respirations were 24. Accessory muscles of respirations were working. NECK: Jugular venous distention up to the angle of jaw. CHEST: Emphysematous chest. LUNGS: Poor air entry bilaterally and rales and rhonchi posteriorly. HEART: Sounds S1, S2 normal. Tachycardia noted. Breast implants noted. ABDOMEN: Soft, nontender. EXTREMITIES: No dependent edema. NEUROLOGIC: No focal neuro deficit is documented. Non-ST elevation myocardial infarction, [id number] systolic heart failure, cardiomyopathy, chronic obstructive pulmonary disease, possible exacerbation. No definite pneumonia noted. CT scan shows minimal infiltration, borderline manifestation of ground glass appearance. EKG, septal infarct old with a suggestion of ST elevations in the lateral leads. Troponin level elevation sequentially going up to 3.3. IMPRESSION: Non-ST elevation myocardial infarction. PLAN: At this time, continue same therapy. The patient wants to be DNR and did not want to be transferred. Jonathan Alfonso MD DR: SARAH/lida JOB# [id number]
[2020-11-27] MEDS ORDERED: ZOFRAN IV PRN (01:30)
[2020-11-27] MEDS ORDERED: INTEGRILIN IV ONE (01:30)
[2020-11-27] MEDS: ULTRAM PO PRN ×4 (01:59→21:49)
--- NOTE | 2020-11-27 02:30 | NUR ---
Pt attempting to rest with voicing irritation with jennings catheter. RN explained that there is still a large amount of urine diuresis in the jennings bag. VSS. Integrillin infusion continued at 2 mcgs/kg/minute = 3.93 ml/hour per MD order after bolus given.
--- NOTE | 2020-11-27 03:02 | NUR ---
Episode of Sinus Steven of 54 noted on EKG for 5 seconds. RN checked on pt. Pt is Awake, Aox3 and denies palpitations or any chest pain or pressure. VSS. HR back to 90 NSR. No ectopy noted. Pt receiving RT treatment
[2020-11-27] MEDS: XOPENEX IH SCH ×4 (03:05→20:30)
--- NOTE | 2020-11-27 03:39 | NUR ---
Pt resting quietly. No complaining of jennings catheter discomfort. Urine output continued with pale yellow urine in catheter bag. Pt states pain level (chest) 0/10 but still has back pain (chronic) 6/10.
[2020-11-27 06:19] LABS: CARBON DIOXIDE 26.6 mmol/L (20.0-32)
[2020-11-27 06:20] LABS: CALCIUM 8.2 mg/dL (8.4-10.5)
--- NOTE | 2020-11-27 06:30 | NUR ---
Pt stable at this time. No SOB. BP stable. No wheezes heard in lungs. Denies chest pain.
--- NOTE | 2020-11-27 06:55 | PCM.EKG ---
[facility] Test Date: 2020-11-27 Test Time: 06:47:10 Pat Name: GABBIE ECHAVARRIA Department: Room: ICU1 A Gender: F Aix Administrator: DANIEL : 1940 Requested By: JADON REYES Order Number: [id number] Reading MD: Measurements Intervals [place] Rate: 75 P: 70 FL: 133 QRS: -60 QRSD: 110 T: 11 QT: 444 QTc: 496 Interpretive Statements Sinus rhythm RSR' in V1 or V2, right VCD or RVH Inferior infarct, old Borderline ST elevation, anterolateral leads Compared to ECG 11/27/2020 00:02:43 Right ventricular hypertrophy now present RSR' in V1 or V2 now present ST (T wave) deviation now present Sinus tachycardia no longer present Myocardial infarct finding still present Please click the below link to view image of tracing.
--- NOTE | 2020-11-27 07:00 | NUR ---
Report given to Quentin WATER RESOURCES PROJECT MANAGER. Aware pt wants jennings catheter removed due to discomfort.
[2020-11-27] MEDS: PULMICORT IH SCH ×2 (08:41→20:30)
[2020-11-27] MEDS: RANEXA PO SCH ×2 (08:49→20:58)
[2020-11-27] MEDS: MUCINEX PO SCH ×2 (08:49→20:58)
[2020-11-27] MEDS: PROTONIX PO SCH (08:49)
[2020-11-27] MEDS: LOVENOX SQ SCH ×2 (08:50→20:58)
[2020-11-27] MEDS: XANAX PO SCH ×3 (08:52→20:58)
[2020-11-27] MEDS ORDERED: SOLU-MEDROL IV SCH (09:00)
[2020-11-27] MEDS ORDERED: NITRO-DUR 0.2MG PATCH TD SCH (09:00)
--- NOTE | 2020-11-27 12:00 | NUR ---
Dr. Alfonso at bedside- talk to pt about plan for Cardiac Cath. tomorrow. Pt has no questions at this time. Titrate nitro drip off as tolerated. Pt urine output low- Primary fluids increased to 75 cc/hr from 30 cc/hr.
[2020-11-27] MEDS ORDERED: ENTRESTO 24 MG-26 MG TABLET PO ONE (16:30)
--- NOTE | 2020-11-27 16:43 | PNH ---
DATE: 11/27/2020 SUBJECTIVE: The patient is a 80-year-old female. The patient is feeling much better. No chest pain, breathing comfortably. PHYSICAL EXAMINATION: VITAL SIGNS: Temperature 98, pulse is 89, respirations are 20, 135/67 blood pressure and 95 saturation on 3 liters nasal cannula. NECK: No JVD is discernible. LUNGS: Clear. Poor air entry. HEART: Heart sounds are normal. LABORATORY DATA: Chemistry: 3.5 potassium and her urine output is slightly concentrated and less with total output of 1145 and her output has been low this morning. Her troponin went from 3.36 to 3.12. Echo showed ischemic cardiomyopathy and multi-segmental wall motion abnormality, septum is hypokinetic. EKG is stable, inferolateral ST-T wave changes, septal infarct based on QS pattern V1 through V3. IMPRESSION: Non-ST elevation myocardial infarction, acute on chronic systolic heart failure, ischemic cardiomyopathy, COPD, acute exacerbation of respiratory failure. PLAN: At this time, cardiac catheterization in the morning. Jonathan Alfonso MD DR: SARAH/lida JOB# [id number]
[2020-11-27] MEDS: ENTRESTO 24 MG-26 MG TABLET PO SCH (17:00)
[2020-11-27] MEDS: NS 1000ML/KCL 20MEQ 1,000 ML IV SCH (18:25)
--- NOTE | 2020-11-27 19:00 | NUR ---
Received report from Quentin BEET TOPPER. Integrillin infusion turned off by 7 AM RN per MD order of run infusion for 18 hours then D/C. Pt on maintenance IV infusion per order. Pt denies chest pain. States chronic back pain but tolerable and does not need pain med at present time. No acute distress. NSR on EKG 80s.
[2020-11-27] MEDS ORDERED: LANOLIN HYDROUS TP ONE (20:09)
--- NOTE | 2020-11-27 20:10 | NUR ---
COVID PCR (2nd test) specimen obtained from left nare by RN per protocol and sent to lab per Renee Davis RN. COVID-19 rapid test was done in the ER on 11/26/20
--- NOTE | 2020-11-27 20:20 | NUR ---
Increased inspiratory and expiratory wheezes noted with rhonchi bilaterally. RN called RT Martell to come do respiratory tx early before 2100. Pt washing face. Lanolin lip balm given for c/o dry, cracking lips
[2020-11-27] MEDS: SOLU-MEDROL IV SCH (20:55)
[2020-11-27] MEDS: LIPITOR PO SCH (20:55)
--- NOTE | 2020-11-27 21:00 | NUR ---
No resp. distress noted post RT treatments given per RT. No wheezes heard anymore. Few rhonchi noted. No fine crackles. Pt watching TV. No SOB noted.
--- NOTE | 2020-11-27 21:15 | NUR ---
PM snack of PB crackers and coca cola given per request.
[2020-11-27] MEDS: ROCEPHIN 1,000 MG in NS 100ML 100 ML IV SCH (22:00)
[2020-11-27] MEDS: AMBIEN PO PRN (22:15)
--- NOTE | 2020-11-27 22:15 | NUR ---
Pt states unable to sleep. Requested ambien pill. Given per order.
[2020-11-28] VITALS (44 sets, daily range): BP systolic 102–151; BP diastolic 46–117
--- NOTE | 2020-11-28 00:15 | NUR ---
o2 sats 88%. Pt trying to get OOB. Bed alarm on and heard by RN. RN immediately went into room. Pt stated she had a nightmare and it woke her up. RN reminded pt that she has a urinary catheter and can cause damage if it it pulled even accidentally. Pt had removed o2 and placed it on her chin. RN repositioned Nasal cannula in pt's nares. RN repositioned pt for comfort to sleep. Pt NPO continued. No drinks at bedside. Good urine output continued since 1800. O2 sats increased to 93-95% immediately with o2 at 3L/NC/minute
--- NOTE | 2020-11-28 02:20 | NUR ---
O2 sats 88%. RN assessed pt. Pt removed o2 while she was asleep. RN reapplied o2 at 3L/NC/min. O2 sats up to 94-95% immediately. Pt ox3, VSS
[2020-11-28] MEDS: XOPENEX IH SCH ×4 (03:15→20:35)
[2020-11-28] MEDS: MORPHINE SULFATE IV PRN ×2 (03:40→08:00)
--- NOTE | 2020-11-28 04:00 | NUR ---
Labs drawn per nailhead setter.
[2020-11-28 05:16] LABS: CALCIUM 8.5 mg/dL (8.4-10.5); CARBON DIOXIDE 24.1 mmol/L (20.0-32)
--- NOTE | 2020-11-28 05:30 | NUR ---
Chlorahexadine bath given. Groin cleansed extensively for heart cath with chlorahexadine wipes. Electric razor used for groin. Chlorahexadine wipes used all over body after bath done. AM care with teeth brushed. Olivas & faiza care done. Pt NPO for heart cath at 0900
--- NOTE | 2020-11-28 05:56 | NUR ---
HOLD LOVENOX RECEIVED TELEPHONE ORDER FROM DR REYES TO HOLD LOVENOX THIS MORNING. RAQUEL
[2020-11-28] MEDS ORDERED: HEPARIN ONE (06:38)
[2020-11-28] MEDS ORDERED: NS 1000ML 1,000 ML ONE ×2 (06:38→08:35)
[2020-11-28] MEDS ORDERED: SUBLIMAZE ONE (06:39)
[2020-11-28] MEDS ORDERED: VERSED ONE (06:40)
[2020-11-28] MEDS ORDERED: XYLOCAINE ONE (06:40)
--- NOTE | 2020-11-28 07:00 | NUR ---
0700-report given to RENE Saavedra. Aware pt ready for heart cath at nine
--- NOTE | 2020-11-28 07:00 | NUR ---
Pt told RN just now that she had chest pain earlier in shift but that it was relieved with morphine around 0415. St depression on manager monitoring. No new changes. RN emphasized again that pt must tell RN when she has chest pain. Pt denies chest pain now.
[2020-11-28] MEDS: NS 1000ML/KCL 20MEQ 1,000 ML IV SCH ×2 (08:25→21:35)
[2020-11-28] MEDS: ZOFRAN IV PRN (08:29)
[2020-11-28] MEDS: XANAX PO SCH ×3 (08:29→21:00)
[2020-11-28] MEDS: MUCINEX PO SCH ×2 (08:29→21:00)
[2020-11-28] MEDS: ALDACTONE PO SCH (08:30)
[2020-11-28] MEDS: SOLU-MEDROL IV SCH (08:30)
[2020-11-28] MEDS: PROTONIX PO SCH (08:30)
[2020-11-28] MEDS: PULMICORT IH SCH ×2 (08:30→20:35)
--- NOTE | 2020-11-28 09:26 | NUR ---
Pt taken to aquatic life laborer
[2020-11-28] MEDS ORDERED: BENADRYL ONE (09:43)
--- NOTE | 2020-11-28 10:30 | NUR ---
Pt arrived in room from laboratory helper. Left heart Cath done. No interventions at this time. Will medically treat. Right groin site is soft with a tinge of blood on dressing.
[2020-11-28] MEDS: RANEXA PO SCH ×2 (10:42→21:00)
[2020-11-28] MEDS: ASPIRIN EC PO SCH (10:42)
[2020-11-28] MEDS: PLAVIX PO SCH (10:43)
[2020-11-28] MEDS: LIPITOR PO SCH (10:43)
[2020-11-28] MEDS: ENTRESTO 24 MG-26 MG TABLET PO SCH (10:45)
--- NOTE | 2020-11-28 10:46 | CCLR ---
DATE OF PROCEDURE: 11/28/2020 HEART CATH REPORT PRECATHETERIZATION DIAGNOSES: Non-ST elevation myocardial infarction, anterior subendocardial myocardial infarction with T-wave changes along with significant troponin elevation. POSTCATHETERIZATION DIAGNOSES: Left main is patent, left anterior descending is a type 3 vessel with minimal luminal irregularity without any flow obstruction. No thrombus is noted, it is a type 3 vessel. Circumflex is a good size vessel, appears to be fully patent. Right coronary artery codominant vessel with mild mid RCA with luminal irregularity without any flow obstruction. No thrombus is noted. Good distal flow is noted. Left ventricle is normal in size. Elevated LVEDP of 25-30 mm with mitral valve prolapse, no mitral regurgitation based on LV gram done in DUFF and ITALIAN view. Ejection fraction of 55-60%. ANESTHESIA: 2% lidocaine. PREOPERATIVE MEDICATIONS: Benadryl 50 mg IV, Versed 1 mg IV, fentanyl 12.5 mcg IV. ANTICOAGULATION: Heparin 2000 units intra-arterially, 2000 units in the flush solution, 1000 units in the dye solution. Dye use is Omnipaque. Total amount is 110 mL. CATHETERS: JL4 6-[place], JR4 6-[place], 6-[place] angled pigtail catheter and 5-[place] right genet catheter for right coronary cannulation. ARTERIAL TIME: 12 minutes. FLUOROSCOPIC TIME: 3.3 minutes. PROCEDURES: Left heart catheterization, bilateral selective coronary arteriography, left ventriculography by right femoral Iam approach. Angio-Seal deployed. Hemostasis achieved. Under local anesthesia, right femoral artery was punctured percutaneously by arterial needle, guide wire passed in right femoral artery, 6-[place] Cordis sheath introduced, side port of the sheath used for femoral arterial pressure monitoring. Sheath anchored with suture. Left Iam catheter introduced over guide wire into ascending aorta left coronary artery cannulated and left coronary angiography performed in ITALIAN and DUFF projections with craniocaudal applications to visualize all branches. Left catheter exchanged for right coronary catheter and right coronary angiography performed in ITALIAN and DUFF. This catheter exchanged for 6-[place] pigtail catheter and catheter crossed the aortic valve and left ventricular LVEDP measured and LV gram performed in 30 degrees DUFF view with 30 mL Omnipaque dye and panning of descending aorta attempted. Patient tolerated procedure well. No complications of procedure. Angio-Seal deployed for hemostasis. LVEDP is elevated to 15-20 mm with an LV pressure of 156/20, femoral artery pressure is 144/73. No gradient across the aorta documented. FINAL CONCLUSION: No flow obstructive coronary artery disease, minimal luminal irregularity in the mid right coronary artery. No thrombus is noted. Elevated left ventricular end diastolic pressure. Intact left ventricular systolic function. Mitral valve prolapse, no mitral regurgitation. RECOMMENDATIONS: Optimization of medical therapy with DEANA inhibitors, beta-blockers and statins, and continue treatment for her COPD. Laxmichand MD Kaden DR: SARAH/lida JOB# [id number]
--- NOTE | 2020-11-28 11:36 | PCM.EKG ---
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: ED : 1940 Requested By: JADON REYES Order Number: [id number] Reading MD: Measurements Intervals [place] Rate: 66 P: 71 TX: 135 QRS: -45 QRSD: 110 T: 219 QT: 546 QTc: 573 Interpretive Statements Sinus rhythm Incomplete RBBB and LAFB RSR' in V1 or V2, right VCD or RVH Repol abnrm, global ischemia, diffuse leads Minimal ST elevation, anterior leads Prolonged QT interval Compared to ECG 11/27/2020 06:47:10 Left anterior fascicular block now present Incomplete right bundle-branch block now present Right bundle-branch block now present Early repolarization now present Possible ischemia now present Prolonged QT interval now present Myocardial infarct finding no longer present ST (T wave) deviation still present Please click the below link to view image of tracing.
--- NOTE | 2020-11-28 14:22 | DIREP ---
PROCEDURE:CHEST 1 VIEW COMPARISON:[facility], CT, CT CHEST W/O, 11/26/2020, 10:08 PM. [facility], CR, XRAY CHEST SINGLE VW, 11/26/2020, 07:46 PM. INDICATIONS:CHEST PAIN, S/P CARDIAC CATH FINDINGS: LUNGS/PLEURA:Mild hyperinflation and chronic interstitial changes. No infiltrate or pleural effusion. Leftward tracheal deviation consistent with right thyroid mass seen on CT. Breast implants. CARDIAC:Prominent cardiac silhouette and normal pulmonary vascularity. Aortic arch calcifications. MEDIASTINUM:Normal. BONES:No acute findings. OTHER:No additional findings. CONCLUSION:No acute cardiopulmonary process or significant change. Dictated by: Ivis Suh MD on 11/28/2020 at 02:16 PM
--- NOTE | 2020-11-28 14:28 | PNH ---
DATE: 11/28/2020 SUBJECTIVE: The patient had a subendocardial myocardial injury based on troponin leak and deep symmetrical T inversion, all across the precordium and in the lateral leads. These are very significant and diffuse repolarization changes with loss of R forces V1 through V3. She underwent cardiac catheterization today and had no flow obstructive coronary artery disease with 30% luminal irregularity in the mid right coronary artery. LV function was intact. Mitral valve prolapse was documented. No mitral regurgitation. LVEDP was elevated to 25-30 mm. Angio-Seal deployed. No complication of the catheterization. She has history of chronic sinusitis also. Hence with a troponin elevation and no flow obstructive coronary artery disease, one may think maybe she had underlying pulmonary emboli, but her oxygen saturations were very acceptable and she improved with therapy of IV nitro, Lovenox and Integrilin. PLAN: At the present time, she is off all those medications. We will do a CT of the sinuses to assess for chronic sinusitis. Her daughter is concerned that she has pseudomonas sinusitis. I am not sure where she is coming from, but at the present time, she will go to the floor. She had deep symmetrical T inversions. We will monitor on telemetry and optimize her medical therapy. Medications have been tailored and optimized. See the orders. Jonathan Alfonso MD DR: SARAH/lida JOB# [id number]
--- NOTE | 2020-11-28 15:00 | NUR ---
Deisy D/C'd pt about to be transferred to room 333
--- NOTE | 2020-11-28 15:04 | ECHO ---
DATE OF SERVICE: 11/26/2020 INDICATION: A 80-year-old female with history of non-ST elevation myocardial infarction with troponin elevation and abnormal EKG with poor R-wave progression, V1 through V3 septal infarct, and T inversions in the lateral lead, history of hypertension, COPD, and cor pulmonale. PRIMARY PHYSICIAN: Dr. Alfonso. FINDINGS: Mitral valve shows some degree of mitral annular calcification and there is some calcification of the mitral leaflets. Mitral valve shows some redundancy of the leaflets with reversal of E to A ratio and probability of posterior mitral leaflet prolapse cannot be fully excluded. No mitral regurgitation is documented. Grade 1 diastolic dysfunction. Aorta is sclerotic. Normal aortic valve opening of 4.58 square centimeters. Tricuspid valve shows 2+ tricuspid regurgitation with 3 meters velocity with right ventricular systolic pressure of 47 mm consistent with moderate pulmonary hypertension. Thickening of the anterior right ventricular wall due to pressure overload due to COPD and normal right ventricular size of 2.7 cm. Right atrium is normal. Left atrium is normal. Left ventricle appears to be normal in size around 5.25 cm end-diastolic dimension and 4.19 cm end-systolic dimension of septum. The mid and the distal septum appears to be hypokinetic. Posterior wall is mildly hypokinetic. Ejection fraction is 40%. Decreased LV compliance. No evidence of any pericardial or pleural effusion noted. Has regional wall motion abnormality of the septum along with the apex with 40% ejection fraction with moderate pulmonary hypertension and some suggestion of possible mitral valve prolapse. Posterior leaflet without any mitral regurgitation. Laxmichand MD Kaden DR: SARAH/lida JOB# [id number]
[2020-11-28] MEDS: ULTRAM PO PRN ×2 (15:23→21:15)
--- NOTE | 2020-11-28 16:00 | NUR ---
Nuclear Med notified Ashli with radiology stated she would notify Thanh with NM of stress test.
--- NOTE | 2020-11-28 19:30 | DIREP ---
PROCEDURE:CT MAXILLOFACIAL W/O CONTRAST COMPARISON:None. INDICATIONS:ch sinusitis TECHNIQUE:Axial CT images were created without intravenous contrast. Sagittal and coronal reformatted images are provided. FINDINGS: ORBITS:The globe is intact. No extraocular muscle entrapment is identified. No orbital wall fracture is identified. FACIAL BONES:No fracture. NASAL BONES :No fracture. Mild leftward deviation of the nasal septum. MANDIBLE:No fracture in the visualized segment. SINUSES:There is diffuse opacification throughout the frontal sinus and near complete opacification throughout the ethmoid air cells. There is opacification of the left greater than right maxillary sinus with evidence of periosteal thickening. Collectively findings favor chronic sinusitis. There is opacification throughout the ostiomeatal complex, bilaterally. Mastoid air cells are clear. SOFT TISSUES:No significant hematoma, or soft tissue swelling. CONCLUSION: 1. Opacification throughout the frontal sinus and ethmoid air cells as well as partial opacification of the left greater than right maxillary sinus. Periosteal thickening is seen within the maxillary sinuses consistent with chronic sinusitis. There is opacification of the ostiomeatal complexes, bilaterally. Dictated by: Pal Valenzuela MD on 11/28/2020 at 07:25 PM
--- NOTE | 2020-11-28 20:03 | DIET.OP ---
Nutrition Asmt/Malnutrit 2- Actual Date of Review: Nov 28, 2020 Nutritional Screening: Malnutr/Diet Consult (general) Diagnosis: COPD exacerbation Pertinent Medical Hx/Surgical: end stage COPD, pulmonary HTN, CAD Subjective Information: telehealth assessment Patient /S.O: Not Indicated Pertinent Meds Current Medications Medications (Trade) Dose Ordered Sig/Beth Route PRN Reason Start Time Stop Time Status Last Admin Dose Admin Albuterol/ Ipratropium (Duo 0.5-3(2.5) Mg/3 ml) 3 ml STK-MED ONCE IH 11/26/20 19:48 11/26/20 19:48 DC Albuterol/ Ipratropium (Duo 0.5-3(2.5) Mg/3 ml) 3 ml STAT STAT IH 11/26/20 20:19 11/26/20 20:20 DC 11/26/20 20:19 Nitroglycerin (Nitrostat) 0.4 mg STAT STAT SL 11/26/20 21:21 11/26/20 22:45 DC 11/26/20 22:43 Nitroglycerin (Nitro-Dur 0.2mg Patch) 1 each STAT STAT TD 11/26/20 21:41 11/27/20 00:12 DC 11/26/20 22:49 Nitroglycerin (Nitro-Dur 0.2mg Patch) 1 each DAILY TD 11/27/20 09:00 11/27/20 00:12 DC Aspirin (Aspirin) 81 mg Q48H PO 11/26/20 22:00 11/27/20 01:18 DC Atorvastatin Calcium (Lipitor) 80 mg HS PO 11/27/20 21:00 12/27/20 20:59 11/28/20 10:43 Guaifenesin (Mucinex) 600 mg BID PO 11/27/20 09:00 12/27/20 08:59 11/28/20 08:29 Pantoprazole Sodium (Protonix) 40 mg DAILY PO 11/27/20 09:00 12/27/20 08:59 11/28/20 08:30 Ranolazine (Ranexa) 500 mg BID PO 11/27/20 09:00 12/27/20 08:59 11/28/20 10:42 Tramadol HCl (Ultram) 50 mg TID PRN PO PAIN 11/26/20 22:00 12/26/20 21:59 11/28/20 15:23 Zolpidem Tartrate (Ambien) 5 mg HS PRN PO INSOMNIA 11/26/20 22:00 12/26/20 21:59 11/27/20 22:15 Alprazolam (Xanax) 0.5 mg TID PO 11/27/20 09:00 12/27/20 08:59 11/28/20 15:22 Enoxaparin Sodium (Lovenox) 45 mg BID SQ 11/27/20 09:00 11/28/20 12:45 DC 11/27/20 20:58 Enoxaparin Sodium (Lovenox) 40 mg STAT STAT SQ 11/26/20 21:41 11/26/20 21:57 DC 11/26/20 22:47 Levalbuterol HCl (Xopenex) 0.63 mg RTQ6 IH 11/27/20 03:00 12/27/20 02:59 11/28/20 15:45 Methylprednisolone Sodium Succinate (Solu-Medrol) 60 mg BID IV 11/27/20 09:00 11/27/20 16:46 DC 11/27/20 08:49 Potassium Chloride/Sodium Chloride 1,000 ml @ 75 mls/hr [id number] IV 11/26/20 22:00 12/26/20 21:59 11/28/20 08:25 Ceftriaxone Sodium 1000 mg/ Sodium Chloride 100 ml @ 100 mls/hr Q24HRS IV 11/26/20 22:00 11/28/20 12:45 DC 11/27/20 22:00 Ceftriaxone Sodium 1000 mg/ Sodium Chloride 100 ml @ 100 mls/hr OT STAT IV 11/26/20 21:41 11/26/20 22:40 DC 11/26/20 22:47 Budesonide (Pulmicort) 0.5 mg RTBID IH 11/27/20 09:00 12/27/20 08:59 11/28/20 08:30 Sodium Chloride 100 ml @ ud STK-MED ONCE IV 11/26/20 22:21 11/26/20 22:21 DC Nitroglycerin (Nitro-Dur 0.2mg Patch) 1 each STK-MED ONCE TD 11/26/20 22:22 11/26/20 22:22 DC Ceftriaxone Sodium (Rocephin) 1,000 mg STK-MED ONCE .ROUTE 11/26/20 22:22 11/26/20 22:22 DC Enoxaparin Sodium (Lovenox) 40 mg STK-MED ONCE SQ 11/26/20 22:23 11/26/20 22:23 DC Nitroglycerin/ Dextrose 250 ml @ ud STK-MED ONCE IV 11/26/20 23:54 11/26/20 23:55 DC Morphine Sulfate (Morphine Sulfate) 2 mg STK-MED ONCE .ROUTE 11/26/20 23:56 11/26/20 23:56 DC Morphine Sulfate (Morphine Sulfate) 2 mg Q4H PRN IV PAIN 4 - 6 11/27/20 00:00 11/28/20 12:45 DC 11/28/20 08:00 Nitroglycerin/ Dextrose 250 ml @ 0 mls/hr IV 11/27/20 00:00 11/27/20 16:22 DC 11/27/20 02:02 Furosemide (Lasix) 40 mg STAT STAT IV 11/27/20 00:06 11/27/20 01:37 DC 11/27/20 00:00 Enoxaparin Sodium (Lovenox) 30 mg STK-MED ONCE .ROUTE 11/27/20 00:32 11/27/20 00:32 DC Clopidogrel Bisulfate (Plavix) 75 mg STK-MED ONCE .ROUTE 11/27/20 00:36 11/27/20 00:37 DC Eptifibatide 100 ml @ ud STK-MED ONCE IV 11/27/20 00:37 11/27/20 00:37 DC Aspirin (Aspirin) 325 mg STK-MED ONCE .ROUTE 11/27/20 00:40 11/27/20 00:40 DC Losartan Potassium (Cozaar) 50 mg STK-MED ONCE .ROUTE 11/27/20 00:48 11/27/20 00:48 DC Ondansetron HCl (Zofran) 4 mg STK-MED ONCE .ROUTE 11/27/20 00:57 11/27/20 00:57 DC Clopidogrel Bisulfate (Plavix) 300 mg STAT STAT PO 11/27/20 01:15 11/27/20 01:38 DC 11/26/20 23:53 Aspirin (Aspirin Ec) 325 mg OT STAT PO 11/27/20 01:15 11/27/20 01:38 DC 11/26/20 23:53 Losartan Potassium (Cozaar) 50 mg STAT STAT PO 11/27/20 01:15 11/27/20 01:38 DC 11/26/20 23:53 Ondansetron HCl (Zofran) 4 mg Q4H PRN IV NAUSEA / VOMITING 11/27/20 01:30 12/27/20 01:29 11/28/20 08:29 Enoxaparin Sodium (Lovenox) 20 mg STAT STAT SQ 11/27/20 01:21 11/27/20 01:38 DC 11/26/20 23:53 Ondansetron HCl (Zofran) 4 mg Q4H PRN IV NAUSEA / VOMITING 11/27/20 01:30 11/27/20 01:35 DC Eptifibatide (Integrilin) 5 mg OT ONCE IV 11/27/20 01:30 11/27/20 01:38 DC 11/26/20 23:55 Eptifibatide 100 ml @ 3 mls/hr PRN IV 11/26/20 22:30 11/28/20 10:58 DC 11/27/20 19:06 Spironolactone (Aldactone) 12.5 mg DAILY PO 11/28/20 09:00 12/28/20 08:59 11/28/20 08:30 Clopidogrel Bisulfate (Plavix) 75 mg DAILY PO 11/28/20 09:00 12/28/20 08:59 11/28/20 10:43 Aspirin (Aspirin Ec) 81 mg DAILY PO 11/28/20 09:00 12/28/20 08:59 11/28/20 10:42 Clopidogrel Bisulfate (Plavix) 75 mg STAT STAT PO 11/27/20 16:11 11/28/20 12:45 DC 11/27/20 18:33 Aspirin (Aspirin Ec) 81 mg STAT STAT PO 11/27/20 16:11 11/27/20 16:45 DC 11/27/20 18:32 Methylprednisolone Sodium Succinate (Solu-Medrol) 60 mg BID IV 11/27/20 21:00 11/28/20 12:45 DC 11/28/20 08:30 Aspirin (Aspirin) 81 mg STK-MED ONCE .ROUTE 11/27/20 18:31 11/27/20 18:31 DC Clopidogrel Bisulfate (Plavix) 75 mg STK-MED ONCE .ROUTE 11/27/20 18:32 11/27/20 18:32 DC Lanolin (Lanolin Hydrous) 28 gm STK-MED ONCE TP 11/27/20 20:09 11/27/20 20:09 DC Heparin Sodium/ Sodium Chloride 1,000 ml @ ud STK-MED ONCE IV 11/28/20 06:38 11/28/20 06:38 DC Sodium Chloride 1,000 ml @ ud STK-MED ONCE .ROUTE 11/28/20 06:38 11/28/20 06:38 DC Heparin Sodium (Porcine) (Heparin) 5,000 unit STK-MED ONCE .ROUTE 11/28/20 06:38 11/28/20 06:39 DC Fentanyl Citrate (Sublimaze) 50 mcg STK-MED ONCE .ROUTE 11/28/20 06:39 11/28/20 06:40 DC Lidocaine HCl (Xylocaine) 20 mg STK-MED ONCE .ROUTE 11/28/20 06:40 11/28/20 06:41 DC Sodium Chloride 1,000 ml @ ud STK-MED ONCE .ROUTE 11/28/20 08:35 11/28/20 08:35 DC Diphenhydramine HCl (Benadryl) 50 mg STK-MED ONCE .ROUTE 11/28/20 09:43 11/28/20 09:43 DC Prednisone (Prednisone) 20 mg DAILY PO 11/29/20 09:00 12/29/20 08:59 Levofloxacin (Levaquin) 500 mg DAILY PO 11/29/20 09:00 12/29/20 08:59 Pertinent Labs Laboratory Tests Test 11/26/20 20:45 11/26/20 22:50 11/26/20 22:53 11/26/20 23:53 SARS-CoV-2 Antigen (Rapid) NEGATIVE Blood Gas Sample Site RT RADIAL ARTERY Blood Gas pH 7.399 Blood Gas PCO2 41.2 mmHg Blood Gas PO2 76.3 mmHg Blood Gas HCO3 24.9 mmol/L Blood Gas Base Excess 0.1 mmol/L Kobe Test POSITIVE Arterial Blood Oxygen Saturation 95.4 % Deoxyhemoglobin 4.5 % Carboxyhemoglobin 0.9 % Methemoglobin 0.4 % Total Hemoglobin 13.8 % Total Oxygen Concentration 18.3 % Blood Gas Temperature 31 Oxygen Delivery Method (LAB) NC 3L FiO2 32 % Total Carbon Dioxide 26.2 mmol/L Troponin I 3.36 ng/mL Bedside Glucose 109 Test 11/27/20 00:00 11/27/20 04:40 11/28/20 04:27 11/28/20 13:17 Nasal Adenovirus (PCR) NotDetected Nasal Coronavirus Type 229E (PCR) NotDetected Nasal Coronavirus Type HKU1 (PCR) NotDetected Nasal Coronavirus Type NL63 (PCR) NotDetected Nasal Coronavirus Type OC43 (PCR) NotDetected Nasal Enterovirus/Rhinovirus (PCR) NotDetected Nasal Influenza Type A (H1) (PCR) NotDetected Nasal Influenza Type A (H3) (PCR) NotDetected Nasal Swab Influenza Virus B (PCR) NotDetected Nasal Parainfluenza Type 1 (PCR) NotDetected Nasal Parainfluenza Type 2 (PCR) NotDetected Nasal Parainfluenza Type 3 (PCR) NotDetected Nasal Parainfluenza Type 4 (PCR) NotDetected Nasal Resp Syncytial Virus (PCR) NotDetected Nasal Bordetella pertussis DNA (PCR NotDetected Nasal Chlamydophila pneumoniae (PCR NotDetected Nasal Human Metapneumovirus (PCR) NotDetected Nasal Mycoplasma pneumoniae (PCR) NotDetected Nasal SARS-CoV-2 (PCR) NotDetected Influenza Type A (H1N1/09) (PCR) NotDetected Sodium Level 138 mmol/L 143 mmol/L Potassium Level 3.5 mmol/L 3.9 mmol/L Chloride Level 102.0 mmol/L 109.0 mmol/L Carbon Dioxide Level 26.6 mmol/L 24.1 mmol/L Anion Gap 12.9 13.8 Blood Urea Nitrogen 14 mg/dL 10 mg/dL Creatinine 0.72 mg/dL 0.75 mg/dL Estimated GFR () 94.8 90.4 Est GFR (CKD-EPI)(Non-Afr Singaporean) 78.3 74.7 BUN/Creatinine Ratio 19.0 13.0 Glucose Level 158 mg/dL 157 mg/dL Calcium Level 8.2 mg/dL 8.5 mg/dL Total Bilirubin 0.2 mg/dL 0.3 mg/dL Aspartate Amino Transf (AST/SGOT) 27 U/L 20 U/L Alanine Aminotransferase (ALT/SGPT) 12 U/L 14 U/L Alkaline Phosphatase 85 U/L 85 U/L Troponin I 3.12 ng/mL 0.58 ng/mL Total Protein 6.0 g/dL 5.8 g/dL Albumin 3.2 g/dL 3.1 g/dL Globulin 2.8 2.7 Albumin/Globulin Ratio 1.142 1.148 Magnesium Level 2.2 mg/dL Height (Feet): 5 Height (Inches): 0 Current Weight: 112 %IBW: 112 Recent Weight Change: Yes (5# wt decline the last 11 months per EMR) Weight Status: Appropriate Food Allergies: No Cultural/Ethnic/Moravian Astrid: none identified Current %PO: Can't Poor(25-49%) (25% of most, eating snacks.) BEE in Kcals: Use Current Weight Calories/Kcals/Kg: MSJ 1.2-1.4 Protein: Use Current Weight Protein g/k-1.3 g/kg Protein Calculated: 51-66g Fluid: ml: 5312-6954 ml or 1 ml/kcal Nutritional Problem: Nutr. Problems Present Problems: Inadequate oral intake Etiology: reduced appetite Signs/Symptoms: 25% po intake of most meals not meet nutrition needs RD Comments: 1. Recommend cardiac diet. Small frequent meals and snacks 2. If po intake is below 50% of meals recommend Ensure Enlive BID to help meet nutritional needs. 3. Encourage po intake of proteins and fat. 4. Monitor BG and correct prn. Expected Outcomes 50-75% po intake of meals to meet needs. Discharge on cardiac diet Malnutrtion/Nutrition Risk Edu: No Notificiation Needed?: No Ramona Valdez Nov 28, 2020 20:03
[2020-11-29 00:21] VITALS: BP 113/64
[2020-11-29] MEDS: XOPENEX IH SCH ×2 (02:47→08:00)
[2020-11-29 03:58] VITALS: BP 116/60
[2020-11-29 04:47] VITALS: BP 166/91
[2020-11-29] MEDS: NITROSTAT SL PRN ×3 (04:50→05:03)
--- NOTE | 2020-11-29 04:54 | PCM.EKG ---
[facility] Test Date: 2020-11-29 Test Time: 04:50:47 Pat Name: GABBIE ECHAVARRIA Department: Room: 333 A Gender: F Hearing And Speech Assistant: BRISA : 1940 Requested By: JADON REYES Order Number: [id number] Reading MD: Measurements Intervals [place] Rate: 76 P: 68 MA: 134 QRS: -43 QRSD: 118 T: 225 QT: 495 QTc: 557 Interpretive Statements Sinus rhythm LAD, consider left anterior fascicular block Abnormal T, probable ischemia, widespread Compared to ECG 11/28/2020 11:32:12 T-wave abnormality now present Possible ischemia now present Incomplete right bundle-branch block no longer present Right bundle-branch block no longer present Right ventricular hypertrophy no longer present ST (T wave) deviation no longer present Please click the below link to view image of tracing.
[2020-11-29 05:04] VITALS: BP 124/70
[2020-11-29 05:11] LABS: BASOPHIL % 0.1 % (0.0-0.2); LYMPHOCYTES # 1.09 10^3/uL1 (1.0-4.8); LYMPHOCYTES % 9.7 % (24.0-44.0); MEAN CORP HGB 30.9 pg (26-34); MONOCYTES # 0.7 10^3/uL (0.3-0.8); NEUTROPHIL # 9.4 10^3/uL (1.8-7.7); PLATELET COUNT 200 10^3/uL (150-400); RED CELL DISTRIBUTION WIDTH 13.9 % (11.5-14.5)
--- NOTE | 2020-11-29 05:20 | NUR ---
Doctor notified of chest protocol followed patient with relief after 3 tablets , no further orders at this time
[2020-11-29 05:47] LABS: CALCIUM 7.9 mg/dL (8.4-10.5); CARBON DIOXIDE 24.5 mmol/L (20.0-32)
[2020-11-29] MEDS: PULMICORT IH SCH (08:00)
[2020-11-29 08:01] VITALS: BP 116/67
[2020-11-29] MEDS: PLAVIX PO SCH (09:00)
[2020-11-29] MEDS: XANAX PO SCH (09:00)
[2020-11-29] MEDS: RANEXA PO SCH (09:00)
[2020-11-29] MEDS: PROTONIX PO SCH (09:00)
[2020-11-29] MEDS: ALDACTONE PO SCH (09:00)
[2020-11-29] MEDS ORDERED: PREDNISONE PO SCH (09:00)
[2020-11-29] MEDS ORDERED: LEVAQUIN PO SCH (09:00)
[2020-11-29] MEDS: MUCINEX PO SCH (09:00)
[2020-11-29] MEDS: ASPIRIN EC PO SCH (09:00)
[2020-11-29] MEDS: ENTRESTO 24 MG-26 MG TABLET PO SCH (09:00)
[2020-11-29] MEDS ORDERED: SPIR25TA PO (11:21)
[2020-11-29] MEDS ORDERED: Levofloxacin PO (11:21)
[2020-11-29] MEDS ORDERED: ASPI-929 PO (11:21)
[2020-11-29] MEDS ORDERED: SACU1TAB PO (11:21)
[2020-11-29] MEDS ORDERED: RANO500T2 PO (11:21)
[2020-11-29] MEDS ORDERED: NITR0.4T SL (11:21)
[2020-11-29] MEDS ORDERED: PRED20TA PO (11:21)
[2020-11-29 11:52] VITALS: BP 161/82
--- NOTE | 2020-11-29 17:25 | DSH ---
DATE OF DISCHARGE: 11/29/2020 FINAL DIAGNOSES: Ssh-UB-mqadzquyv myocardial infarction, subendocardial infarction, acute pulmonary edema, acute respiratory failure, chronic obstructive pulmonary disease with acute exacerbation. Cardiac catheterization done on 11/28/2020. Please refer to my history and physical to the point of my impression. 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 Troponins were significantly elevated and her blood pressure was elevated and she was started on IV nitro, Lovenox and Integrilin along with loading dose of Plavix 300 mg, aspirin was given. Her initial echo showed septum being hypokinetic, ejection fraction of 36-38% and she has got multi-segmental wall motion abnormality and has also moderate pulmonary hypertension with an increased right ventricular systolic pressure with optimized preload and afterload therapy. Her overall condition improved, chest pain improved and subsequently the cardiac catheterization did not show any significant flow obstructive coronary artery disease, luminal irregularities were noted. Her LV function did improve significantly with medical therapy and she did have a resting myocardial perfusion scan done on 11/29/2020, which showed fairly normal global perfusion. 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 She did respond to Ranexa for pain and she was discharged on aspirin 81 mg once a day. Because of chronic sinusitis based on the CT scan of the sinuses, placed her on Levaquin 500 mg daily for 14 days, nitroglycerin on a p.r.n. basis, prednisone 20 mg once a day, Ranexa 1 g twice a day, Entresto 24 one tablet daily, Aldactone 12.5 mg once a day. She is on albuterol nebulizer treatment 4 times a day on a p.r.n. basis for anxiety, Xanax 0.5 mg 3 times a day, Lipitor 80 mg once a day, Flonase nasal allergy spray and she is on Breo Ellipta 1 puff daily, Mucinex 600 mg twice a day, Protonix 40 mg once a day, Ultram 50 mg 3 times a day on a p.r.n. basis for pain, Ambien 5 mg at bedtime, oxygen 2 liters nasal cannula for her COPD, diclofenac acid, pseudoephedrine and loratadine combination were stopped. She will see me back in the clinic next week on 12/07/2020 at 2:15 p.m. and will continue present medications. Laxmichand MD Kaden DR: SARAH/lida JOB# [id number]
--- NOTE | 2020-11-29 17:42 | STRESS ---
DATE OF SERVICE: RESTING MYOCARDIAL PERFUSION SCAN A 80-year-old female with history of utu-PD-oflwluftx myocardial infarction, troponin elevation, unstable angina, abnormal EKG with deep symmetrical T-inversion across the precordium with cardiac catheterization was not showing any flow obstructive coronary artery disease with an echo showing LV ejection fraction of 40% with septal hypokinesis, but the heart catheterization ejection fraction was 55%, normal global perfusion on resting myocardial perfusion scan after giving 29.4 mCi of Cardiolite and the wall motions are normal, ejection fraction of 70%. No defects are noted to suggest any significant transmural infarct. 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 Laxmichand MD Kaden DR: SARAH/lida JOB# [id number]
== END 2020-11-29 12:39 | disposition home or self-care (01) | DRG 280 ==
LOC: EDBD 19:27 → ER 19:27 → ICU 21:53 → EDBEDREQSVC 22:05 → EDBEDREQ 22:05 → MS 11-28 16:32
PROVIDERS: ADMIT Specialist; ATTEND Specialist
PROC: B2111ZZ Fluoroscopy of Multiple Coronary Arteries using Low Osmolar Contrast (ICD-10-PCS; 2020-11-28)
PROC: B2151ZZ Fluoroscopy of Left Heart using Low Osmolar Contrast (ICD-10-PCS; 2020-11-28)
PROC: 4A023N7 Measurement of Cardiac Sampling and Pressure, Left Heart, Percutaneous Approach (ICD-10-PCS; principal; 2020-11-28 09:00)
DX: I21.4 Non-ST elevation (NSTEMI) myocardial infarction (principal); I50.43 Acute on chronic combined systolic (congestive) and diastolic (congestive) heart failure; J96.20 Acute and chronic respiratory failure, unspecified whether with hypoxia or hypercapnia; J44.1 Chronic obstructive pulmonary disease with (acute) exacerbation; I25.10 Atherosclerotic heart disease of native coronary artery without angina pectoris; I11.0 Hypertensive heart disease with heart failure; Z66 Do not resuscitate; E78.00 Pure hypercholesterolemia, unspecified; I25.5 Ischemic cardiomyopathy; I27.81 Cor pulmonale (chronic); I34.1 Nonrheumatic mitral (valve) prolapse; F41.0 Panic disorder [episodic paroxysmal anxiety]; J32.9 Chronic sinusitis, unspecified; Z20.822 Contact with and (suspected) exposure to COVID-19; I27.29 Other secondary pulmonary hypertension; I25.2 Old myocardial infarction; Z79.899 Other long term (current) drug therapy; Z82.49 Family history of ischemic heart disease and other diseases of the circulatory system; Z98.82 Breast implant status; Z88.2 Allergy status to sulfonamides; Z91.041 Radiographic dye allergy status; Z88.5 Allergy status to narcotic agent; Z88.8 Allergy status to other drugs, medicaments and biological substances; Z79.82 Long term (current) use of aspirin; Z79.51 Long term (current) use of inhaled steroids; F41.9 Anxiety disorder, unspecified
CPT/HCPCS: 36415; 36600; 70486; 71045; 71250; 78451; 80053; 82550; 82553; 82803; 82948; 83735; 83880; 84484; 85025; 85379; 85610; 85730; 86140; 86677; 87426; 87633; 93005; 93306; 93458; 94640; 99152; 99153; A9500; C1760; C1894; G0378; J0696; J1100; J1200; J1327; J1644; J1650; J1940; J2250; J2405; J2920; J2930; J3010; J3490; J7030; J7050; J7620; J7627; Q9967

== ENCOUNTER 2021-07-05 14:34 | Emergency (ER) | payer MEDICARE, BC ==
[~2021-07-05] VITALS: Ht 152.4 cm; Wt 58.1 kg
[~2021-07-05 14:34] MED LIST changes: +ASPI-929 PO; +Levofloxacin PO; +NITR0.4T SL; +PRED20TA PO; +SACU1TAB PO; +SPIR25TA PO
--- NOTE | 2021-07-05 14:39 | NUR ---
ARRIVAL PT ARRIVED TO ED WTIH C/O DYSPNEA X 1 WEEK THAT IS WORSE WITH SLEEPING. PT REPORTS SHE HAS INCREASED HER STEROID AND ALBUTEROL TREATMENTS WITH NO RELIEF. BEDSIDE MONITORS APPLIED. VITAL SIGNS STABLE. BED IN LOW LOCKED POSITION. DAUGHTER AT BEDSIDE.
[2021-07-05 14:47] VITALS: BP 128/49
--- NOTE | 2021-07-05 15:00 | ER.PDOC ---
General Chief Complaint: Dyspnea/Respdistress Stated Complaint: DYSPNEA Time seen by MD: 15:00 Source: patient Exam Limitations: no limitations History of Present Illness Initial Comments Patient with history of COPD presents with complaint of shortness of breath Worsening over the past several days. Patient states is actually worse at night where she wakes up short of breath. She states her albuterol inhalers are not working as well as they normally do and she feels as if her breathing is a little worse. Patient denies Covid exposure though she states she did attend a baby shower about a week and 1/2 to 2 weeks ago were no mass were worn and patient is not vaccinated. She states there was someone there who may have had Covid but turns out they did not. Allergies: Coded Allergies: Iodinated Contrast Media (Verified Allergy, Severe, Rash, 12/18/16) HEAD TO TOE RASH AND BLISTER codeine (Verified Allergy, Mild, Nausea, 09/14/14) Sulfa (Sulfonamide Antibiotics) (Verified Allergy, Unknown, 06/11/20) hydrocodone (Verified Allergy, Unknown, 06/11/20) NAUSEA AND VOMITING Home Meds Active Scripts Ranolazine (RANEXA) 500 Mg Tab.er.12h, 1000 MG PO BID for 30 Days Prov:JADON REYES MD 11/29/20 Prednisone (PREDNISONE) 20 Mg Tablet, 20 MG PO DAILY for 14 Days, TAB Prov:JADON REYES MD 11/29/20 Aspirin (ASPIRIN EC) 81 Mg Tablet.dr, 81 MG PO DAILY for 30 Days Prov:JADON REYES MD 11/29/20 Spironolactone 25MG (ALDACTONE 25MG) 25 Mg Tablet, 12.5 MG PO DAILY for 30 Days, TAB Prov:JADON REYES MD 11/29/20 Sacubitril/Valsartan (Entresto 24 mg-26 mg Tablet) 1 Each Tablet, 1 EACH PO DAILY for 30 Days, TAB Prov:JADON REYES MD 11/29/20 Nitroglycerin (NITROSTAT) 0.4 Mg Tab.subl, 0.4 MG SL PRN PRN for CHEST PAIN for 30 Days, TAB Prov:JADON REYES MD 11/29/20 [Levofloxacin] 500 MG TABLET No Conflict Check, 500 MG PO DAILY for 14 Days Prov:JADON REYES MD 11/29/20 Fluticasone Propionate (Flonase Allergy Relief) 9.9 Ml [place].susp, 9.9 ML NS DAILY24 for 30 Days, SPRAYS Prov:JADON REYES MD 01/04/20 Pantoprazole Sodium (PROTONIX) 40 Mg Tablet.dr, 40 MG PO DAILY for 14 Days Prov:JADON REYES MD 11/22/19 Atorvastatin 40MG (LIPITOR 40MG) 40 Mg Tablet, 80 MG PO HS for 30 Days, TAB Prov:JADON REYES MD 11/22/19 Guaifenesin (MUCINEX) 600 Mg Tablet.er, 600 MG PO BID for 7 Days, 0 Refills Prov:ESSENCE CHOWDHURY PUBLIC HEALTH OFFICER 09/10/17 Zolpidem Tartrate (AMBIEN) 5 Mg Tablet, 1 TAB PO HS PRN for INSOMNIA, #30 TAB 0 Refills Prov:TIFFANY BYERS MD 03/15/17 Reported Medications Fluticasone/Vilanterol (Breo Ellipta 200-25 Mcg INH) 1 Each Blst.w.dev, 1 EACH IH QID 03/11/17 Alprazolam (ALPRAZOLAM) 0.5 Mg Tab.rapdis, 0.5 MG PO TID 03/11/17 Tramadol Hcl (TRAMADOL HCL) 50 Mg Tablet, 50 MG PO TID PRN for PAIN, TABLET 01/11/16 Albuterol Sulfate (ALBUTEROL SULFATE) 0.63 Mg/3 Ml Vial.neb, 1 VIAL NEB QID PRN for SHORTNESS OF BREATH, #150 MILLILITER 1 Refill 07/26/15 Past Medical History Medical History: coronary artery disease, cardiac problems, congestive heart failure, COPD, high cholesterol, thyroid disease Surgical History: no surgical history Social History Alcohol Use: none Drug Use: none Review of Systems Constitutional: no symptoms reported EENTM: no symptoms reported Respiratory: cough, shortness of breath, wheezing Cardiovascular: no symptoms reported Gastrointestinal: no symptoms reported Musculoskeletal: no symptoms reported Skin: no symptoms reported Endocrine: no symptoms reported Physical Exam HEENT: Normal ENT Inspection Neck: Full Range of Motion Respiratory: wheezing (Diffuse wheezing and decreased air exchange bilaterally) Cardiovascular: Normal Peripheral Pulses Gastrointestinal: Non Tender Extremities: Non-Tender, Normal Inspection Neurologic/Psychiatric: field marketing representative II-XII NML as Tested, Alert, Normal Mood/Affect, Oriented x 3 Skin: Normal Color, Warm/Dry Results/Orders Results/Orders Orders - YISEL BERRY MD Cbc With Auto Diff (07/05/21 15:05) Comprehensive Metabolic Panel (07/05/21 15:05) Probnp B-Type Auto Transmission Specialist (07/05/21 15:05) Troponin I (07/05/21 15:05) Xr Chest 1v (07/05/21 15:05) Ekg-Routine (07/05/21 15:05) Saline Lock (07/05/21 15:05) Covid19 Antigen Afsaneh Natividad (07/05/21 15:05) Albuterol Sulfate (Ventolin) (07/05/21 16:00) Methylprednisolone Sod Succ (Solu-Medrol (07/05/21 15:57) Albuterol Sulfate (Ventolin) (07/05/21 16:32) Azithromycin (Zithromax) (07/05/21 17:00) 0.9 % Sodium Chloride (Ns 250ml) (07/05/21 17:05) 0.9 % Sodium Chloride (Ns 250ml) (07/05/21 17:11) 0.9 % Sodium Chloride (Ns 250ml) (07/05/21 17:20) Vital Signs Date Time Temp Pulse Resp B/P (MAP) Pulse Ox O2 Delivery O2 Flow Rate FiO2 07/05/21 17:30 98.9 102 22 107/53 (71) 91 2.00 07/05/21 16:43 107 16 93 07/05/21 16:35 125 20 86 07/05/21 14:47 98.9 75 22 07/05/21 14:47 98.9 75 22 91 07/05/21 14:47 98.9 75 22 128/49 (75) 91 2.00 Administered Medications Medications (Trade) Dose Ordered Sig/Beth Route PRN Reason Start Time Stop Time Status Last Admin Dose Admin Albuterol Sulfate (Ventolin) 2.5 mg OT IH 07/05/21 16:00 08/04/21 15:59 07/05/21 16:34 2.5 MG Azithromycin 500 mg/Sodium Chloride 250 ml @ 175 mls/hr STAT ONCE IV 07/05/21 17:00 07/05/21 18:25 07/05/21 17:05 175 MLS/HR Laboratory Tests Test 07/05/21 14:50 07/05/21 15:20 SARS-CoV-2 Antigen (Rapid) NEGATIVE (NEGATIVE) White Blood Count 12.2 10^3/uL (4.5-11.0) H Red Blood Count 3.85 10^6/uL (4.00-5.20) L Hemoglobin 12.3 g/dL (12.0-15.0) Hematocrit 38.3 % (36.0-46.0) Mean Corpuscular Volume 99.5 fL (78-100) Mean Corpuscular Hemoglobin 31.9 pg (26-34) Mean Corpuscular Hemoglobin Concent 32.1 g/dL (33-36.5) L Red Cell Distribution Width 13.9 % (11.5-14.5) Platelet Count 196 10^3/uL (150-400) Mean Platelet Volume 9.3 fL (7.8-11.0) Neutrophils (%) (Auto) 91.6 % (41.0-85.0) *H Lymphocytes (%) (Auto) 5.3 % (24.0-44.0) *L Monocytes (%) (Auto) 1.0 % (5.0-12.0) L Neutrophils # (Auto) 11.2 10^3/uL (1.8-7.7) H Lymphocytes # (Auto) 0.65 10^3/uL1 (1.0-4.8) L Monocytes # (Auto) 0.1 10^3/uL (0.3-0.8) L Absolute Immature Granulocyte (auto 0.02 10^3 u/L (0-2) Absolute Eosinophils (auto) 0.2 10^3/uL (0.0-0.2) Immature Granulocytes % 0.20 % (0.00-0.50) Eosinophils % 1.5 % (0.0-5.0) Basophils % 0.4 % (0.0-0.2) H Basophils # 0.1 10^3/uL (0.0-0.1) Sodium Level 141 mmol/L (132-145) Potassium Level 4.1 mmol/L (3.6-5.2) Chloride Level 106.0 mmol/L (96-109) Carbon Dioxide Level 25.3 mmol/L (20.0-32) Anion Gap 13.8 Blood Urea Nitrogen 13 mg/dL (7-18) Creatinine 0.85 mg/dL (0.59-1.40) Estimated GFR () 78.3 (>/=60) Est GFR (CKD-EPI)(Non-Afr Azerbaijani) 64.7 (>/=60) BUN/Creatinine Ratio 15.0 Glucose Level 164 mg/dL (70-110) H Calcium Level 8.6 mg/dL (8.4-10.5) Total Bilirubin 0.2 mg/dL (0.2-1.0) Aspartate Amino Transferase (AST) 13 U/L (0-35) Alanine Aminotransferase (ALT) 10 U/L (12-78) L Alkaline Phosphatase 90 U/L (50-136) Troponin I < 0.02 ng/mL (0.00-0.05) Pro-B-Type Natriuretic Peptide 218 pg/mL (0-450) Total Protein 6.4 g/dL (6.4-8.2) Albumin 3.2 g/dL (3.4-5.0) L Globulin 3.2 Albumin/Globulin Ratio 1.000 Progress Progress Patient's chest x-ray does not show acute disease. She has received 20 mg of prednisone p.o. in the emergency department as she had already taken 40 mg earlier today prior to arrival. She received Zithromax IV as well as albuterol. Patient has been reevaluated multiple times and at this point she states she feels well enough to go home. I did offer her admission however she states she would prefer to go home. Patient does use oxygen at home and her oxygen saturation is 92 to 93% on 3 L of oxygen here in the emergency department. She does not have any other complaints at this time. Patient states they have had a lot of tragedy in the family recently. Her granddaughter within the past few days as well as another family member diagnosed with a significant illness. She states she believes this is affecting her health as well. ER DEPART Departure Time of Disposition: 17:56 Disposition: 01 HOME / SELF CARE / HOMELESS Impression: Primary Impression: Chronic obstructive pulmonary disease Additional Impression: Dyspnea Condition: Stable Referrals: JADON REYES MD (PCP) PRIMARY CARE PROVIDER Duration or Time Spent with Pa: 20 Problem Qualifiers YISEL BERRY MD Jul 05, 2021 15:00
[2021-07-05 15:27] LABS: BASOPHIL # 0.1 10^3/uL (0.0-0.1); BASOPHIL % 0.4 % (0.0-0.2); EOSINOPHIL # 0.2 10^3/uL (0.0-0.2); EOSINOPHIL % 1.5 % (0.0-5.0); LYMPHOCYTES # 0.65 10^3/uL1 (1.0-4.8); LYMPHOCYTES % 5.3 % (24.0-44.0); MEAN CORP HGB 31.9 pg (26-34); MONOCYTES # 0.1 10^3/uL (0.3-0.8); NEUTROPHIL # 11.2 10^3/uL (1.8-7.7); NEUTROPHILS % 91.6 % (41.0-85.0); PLATELET COUNT 196 10^3/uL (150-400); RED CELL DISTRIBUTION WIDTH 13.9 % (11.5-14.5)
--- NOTE | 2021-07-05 15:27 | PCM.EKG ---
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: VENKAT : 1940 Requested By: YISEL BERRY Order Number: [id number] Reading MD: Measurements Intervals [place] Rate: 108 P: 75 ND: 155 QRS: -64 QRSD: 111 T: 84 QT: 363 QTc: 487 Interpretive Statements Sinus tachycardia Left anterior fascicular block RSR' in V1 or V2, right VCD or RVH Probable anteroseptal infarct, old ST elevation, consider inferior injury Compared to ECG 11/29/2020 04:50:47 Right ventricular hypertrophy now present RSR' in V1 or V2 now present Myocardial infarct finding now present ST (T wave) deviation now present Sinus rhythm no longer present T-wave abnormality no longer present Possible ischemia no longer present Please click the below link to view image of tracing.
--- NOTE | 2021-07-05 15:33 | DIREP ---
PROCEDURE:CHEST 1 VIEW COMPARISON:[facility], CT, CT CHEST W/O, 11/26/2020, 10:08 PM. [facility], CR, XRAY CHEST SINGLE VW, 11/28/2020, 11:17 AM. [facility], CR, XRAY CHEST SINGLE VW, 11/26/2020, 07:46 PM. [facility], CR, XRAY CHEST SINGLE VW, 06/11/2020, 03:39 PM. INDICATIONS:dyspnea FINDINGS: LUNGS/PLEURA:No significant pulmonary parenchymal abnormalities. No effusions. VASCULATURE:Normal. Unremarkable pulmonary vasculature. CARDIAC:Normal. No cardiac silhouette abnormality or cardiomegaly. MEDIASTINUM:Stable right paratracheal mass. BONES:Normal. No fracture or visible bony lesion. OTHER:Bilateral breast implants. EKG leads overlie the chest. CONCLUSION:No acute cardiopulmonary abnormalities. Dictated by: Jose Enrique Thapa M.D. on 07/05/2021 at 03:26 PM
[2021-07-05 15:49] LABS: ALANINE AMINOTRANSFERASE(ML) 10 U/L (12-78); ALKALINE PHOSPHATASE 90 U/L (50-136); ASPARTATE AMINO TRANSFERASE 13 U/L (0-35); CALCIUM 8.6 mg/dL (8.4-10.5); CARBON DIOXIDE 25.3 mmol/L (20.0-32); GLUCOSE 164 mg/dL (70-110)
[2021-07-05] MEDS ORDERED: SOLU-MEDROL IV STA (15:57)
[2021-07-05] MEDS ORDERED: VENTOLIN IH SCH (16:00)
[2021-07-05] MEDS ORDERED: VENTOLIN IH ONE (16:32)
[2021-07-05] MEDS ORDERED: ZITHROMAX 500 MG in NS 250ML 250 ML IV ONE (17:00)
[2021-07-05] MEDS ORDERED: NS 250ML 250 ML ONE ×3 (17:05→17:20)
[2021-07-05 17:30] VITALS: BP 107/53
[2021-07-05 19:30] LABS: BAND NEUTROPHILS 3 % (2-6); EOSINOPHIL 1 % (1-4); LYMPHOCYTE 4 % (25-36); MONOCYTE 1 % (3-9); SEGMENTED NEUTROPHILS 91 % (31-76)
== END 2021-07-05 18:08 | disposition home or self-care (01) ==
LOC: ER 14:34 → EDBD 14:34 → ER 18:08
DX: J44.9 Chronic obstructive pulmonary disease, unspecified (principal); I50.9 Heart failure, unspecified; I25.10 Atherosclerotic heart disease of native coronary artery without angina pectoris; Z79.51 Long term (current) use of inhaled steroids; Z79.52 Long term (current) use of systemic steroids; E78.00 Pure hypercholesterolemia, unspecified; E07.9 Disorder of thyroid, unspecified; Z79.82 Long term (current) use of aspirin; Z79.899 Other long term (current) drug therapy; Z88.2 Allergy status to sulfonamides; Z88.5 Allergy status to narcotic agent; Z20.822 Contact with and (suspected) exposure to COVID-19
CPT/HCPCS: 36415; 71045; 80053; 83880; 84484; 85025; 87426; 93005; 94640; 96365; 99285; J0456; J7050 ×4; J7613

== ENCOUNTER 2021-07-28 10:50 | Inpatient (IN) | payer MEDICARE, BC ==
[~2021-07-28] VITALS: Ht 152.4 cm; Wt 44.7 kg
--- NOTE | 2021-07-28 11:05 | NUR ---
ARRIVAL PT ARRIVED TO ED WITH C/O DYSPNEA FOR SEVERAL DAYS. PT REPORTS HEAVINESS IN CHEST. PT REPORTS SHE WAS STARTED ON LEVAQUIN YESTERDAY BY DR REYES. UPON ARRIVAL PT TRIPODING, RETRACTING AND WHEEZING HEARD THROUGHOUT. PT HAS PRODUCTIVE COUGH. BEDSIDE MONITORS APPLIED. RT CALLED FOR TREATMENT, ABG AND EKG. 20G IV PLACED TO LEFT AC WITH SOLUMEDROL 125MG, XOPENEX AND IPATROPIUM X 2 BY EMS PRIOR TO ARRIVAL. BED IN LOW LOCKED POSITION.
[2021-07-28 11:06] VITALS: BP_SYST 150; BP_SYST 159; BP_DIAS 84; BP_DIAS 87
[2021-07-28] MEDS ORDERED: DECADRON IH STA (11:12)
[2021-07-28] MEDS ORDERED: XOPENEX IH STA (11:12)
[2021-07-28] MEDS ORDERED: DECADRON ONE (11:13)
[2021-07-28] MEDS ORDERED: XOPENEX IH ONE (11:13)
--- NOTE | 2021-07-28 11:16 | ER.PDOC ---
General Chief Complaint: Dyspnea/Respdistress Stated Complaint: SHORTNESS OF BREATH Time seen by MD: 11:14 Source: patient Exam Limitations: no limitations History of Present Illness Initial Comments Shortness of breath for 1 week worse today. Patient has COPD and is also coughing. Patient received two Xopenex treatments and 1 ipratropium treatment via HHN. She also received albuterol 125 mg IV. This was given by paramedics. Severity: moderate Prior Episodes/Possible Cause: occasional episodes, chronic episodes Modifying Factors: improves with albuterol nebulizer Associated Symptoms: cough, wheezing Allergies: Coded Allergies: Iodinated Contrast Media (Verified Allergy, Severe, Rash, 12/18/16) HEAD TO TOE RASH AND BLISTER codeine (Verified Allergy, Mild, Nausea, 09/14/14) Sulfa (Sulfonamide Antibiotics) (Verified Allergy, Unknown, 06/11/20) hydrocodone (Verified Allergy, Unknown, 06/11/20) NAUSEA AND VOMITING Home Meds Active Scripts Ranolazine (RANEXA) 500 Mg Tab.er.12h, 1000 MG PO BID for 30 Days Prov:JADON REYES MD 11/29/20 Prednisone (PREDNISONE) 20 Mg Tablet, 20 MG PO DAILY for 14 Days, TAB Prov:JADON REYES MD 11/29/20 Aspirin (ASPIRIN EC) 81 Mg Tablet.dr, 81 MG PO DAILY for 30 Days Prov:JADON REYES MD 11/29/20 Spironolactone 25MG (ALDACTONE 25MG) 25 Mg Tablet, 12.5 MG PO DAILY for 30 Days, TAB Prov:JADON REYES MD 11/29/20 Sacubitril/Valsartan (Entresto 24 mg-26 mg Tablet) 1 Each Tablet, 1 EACH PO DAILY for 30 Days, TAB Prov:JADON REYES MD 11/29/20 Nitroglycerin (NITROSTAT) 0.4 Mg Tab.subl, 0.4 MG SL PRN PRN for CHEST PAIN for 30 Days, TAB Prov:JADON REYES MD 11/29/20 [Levofloxacin] 500 MG TABLET No Conflict Check, 500 MG PO DAILY for 14 Days Prov:JADON REYES MD 11/29/20 Fluticasone Propionate (Flonase Allergy Relief) 9.9 Ml [place].susp, 9.9 ML NS JOY LY24 for 30 Days, SPRAYS Prov:JADON REYES MD 01/04/20 Pantoprazole Sodium (PROTONIX) 40 Mg Tablet.dr, 40 MG PO DAILY for 14 Days Prov:JADON REYES MD 11/22/19 Atorvastatin 40MG (LIPITOR 40MG) 40 Mg Tablet, 80 MG PO HS for 30 Days, TAB Prov:JADON REYES MD 11/22/19 Guaifenesin (MUCINEX) 600 Mg Tablet.er, 600 MG PO BID for 7 Days, 0 Refills Prov:ESSENCE CHOWDHURY PUBLICATIONS INSPECTOR 09/10/17 Zolpidem Tartrate (AMBIEN) 5 Mg Tablet, 1 TAB PO HS PRN for INSOMNIA, #30 TAB 0 Refills Prov:TIFFANY BYERS MD 03/15/17 Reported Medications Fluticasone/Vilanterol (Breo Ellipta 200-25 Mcg INH) 1 Each Blst.w.dev, 1 EACH IH QID 03/11/17 Alprazolam (ALPRAZOLAM) 0.5 Mg Tab.rapdis, 0.5 MG PO TID 03/11/17 Tramadol Hcl (TRAMADOL HCL) 50 Mg Tablet, 50 MG PO TID PRN for PAIN, TABLET 01/11/16 Albuterol Sulfate (ALBUTEROL SULFATE) 0.63 Mg/3 Ml Vial.neb, 1 VIAL NEB QID PRN for SHORTNESS OF BREATH, #150 MILLILITER 1 Refill 07/26/15 Past Medical History Medical History: coronary artery disease, cardiac problems, congestive heart failure, COPD, high cholesterol, thyroid disease Surgical History: no surgical history Family History Significant Family History: no pertinent family hx Social History Drug Use: none Review of Systems Constitutional: no symptoms reported EENTM: no symptoms reported Respiratory: see HPI Cardiovascular: no symptoms reported Gastrointestinal: no symptoms reported Genitourinary: no symptoms reported All Other Systems: Reviewed and Negative Physical Exam General Appearance: Moderate Distress HEENT: PERRL/EOMI, Normal ENT Inspection Neck: Non-Tender, Full Range of Motion, Supple, Normal Inspection Respiratory: chest non-tender, no accessory muscle use, respiratory distress, decreased breath sounds, prolonged expirations, wheezing, expiration Cardiovascular: Normal Peripheral Pulses, Regular Rate, Rhythm, No Edema, No Gallop, No JVD, No Murmur, Tachycardia Gastrointestinal: Normal Bowel Sounds, No Organomegaly, No Pulsatile Mass, Non Tender, Soft Extremities: Normal Range of Motion, Non-Tender, Normal Inspection, No Pedal Edema, No Calf Tenderness, Normal Capillary Refill Neurologic/Psychiatric: pig 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 NML as Tested, No Motor/Sensory Deficits, Alert, Normal Mood/Affect, Oriented x 3 Skin: Normal Color, Warm/Dry Lymphatic: No Adenopathy Results/Orders Results/Orders Orders - FREDIS SANTACRUZ MD Cbc With Auto Diff (07/28/21 11:05) Comprehensive Metabolic Panel (07/28/21 11:05) Creatine Kinase (07/28/21 11:05) Creatine Kinase Mb (07/28/21 11:05) Probnp B-Type Preparation Department Supervisor (07/28/21 11:05) Troponin I (07/28/21 11:05) D-Dimer (07/28/21 11:05) Arterial Blood Gas (07/28/21 11:05) Blood Culture (07/28/21 11:05) Xr Chest 1v (07/28/21 11:05) PT (07/28/21 11:05) Partial Thromboplastin Time. (07/28/21 11:05) Ekg-Routine (07/28/21 11:05) Covid19 Antigen Afsaneh Natividad (07/28/21 11:05) Lactic Acid(Ml) (07/28/21 11:05) Procalcitonin (07/28/21 11:05) Levalbuterol Hcl (Xopenex) (07/28/21 11:12) Dexamethasone Sodium Phosphate (Decadron (07/28/21 11:12) Levalbuterol Hcl (Xopenex) (07/28/21 11:13) Dexamethasone Sodium Phosphate (Decadron (07/28/21 11:13) 0.9 % Sodium Chloride (Ns 1000ml) (07/28/21 13:00) 0.9 % Sodium Chloride (Ns 1000ml) (07/28/21 13:18) Codeine Phosphate/Guaifenesin (Robitussi (07/28/21 13:44) Guaifenesin/Dextromethorphan (Robitussin (07/28/21 13:45) Guaifenesin/Dextromethorphan (Robitussin (07/28/21 13:46) Vital Signs Date Time Temp Pulse Resp B/P (MAP) Pulse Ox O2 Delivery O2 Flow Rate FiO2 07/28/21 13:24 98.3 114 26 111/55 (73) 91 Nasal Canula 2.50 07/28/21 11:29 125 28 95 07/28/21 11:20 125 28 95 07/28/21 11:06 98.3 125 28 07/28/21 11:06 98.3 125 28 159/87 (111) 95 Nasal Canula 2.50 07/28/21 11:06 98.3 125 28 95 Administered Medications Medications (Trade) Dose Ordered Sig/Beth Route PRN Reason Start Time Stop Time Status Last Admin Dose Admin Levalbuterol HCl (Xopenex) 1.25 mg STAT STAT IH 07/28/21 11:12 07/28/21 11:13 DC 07/28/21 11:12 1.25 MG Sodium Chloride 1,000 ml @ 1,200 mls/hr Q50M STAT IV 07/28/21 13:00 07/28/21 13:51 DC 07/28/21 13:18 1,200 MLS/HR Laboratory Tests Test 07/28/21 11:09 07/28/21 11:17 07/28/21 11:19 SARS-CoV-2 Antigen (Rapid) NEGATIVE (NEGATIVE) White Blood Count 8.4 10^3/uL (4.5-11.0) Red Blood Count 4.58 10^6/uL (4.00-5.20) Hemoglobin 14.6 g/dL (12.0-15.0) Hematocrit 46.1 % (36.0-46.0) H Mean Corpuscular Volume 100.7 fL (78-100) H Mean Corpuscular Hemoglobin 31.9 pg (26-34) Mean Corpuscular Hemoglobin Concent 31.7 g/dL (33-36.5) L Red Cell Distribution Width 13.4 % (11.5-14.5) Platelet Count 222 10^3/uL (150-400) Mean Platelet Volume 9.9 fL (7.8-11.0) Neutrophils (%) (Auto) 66.2 % (41.0-85.0) Lymphocytes (%) (Auto) 18.7 % (24.0-44.0) L Monocytes (%) (Auto) 13.8 % (5.0-12.0) H Neutrophils # (Auto) 5.6 10^3/uL (1.8-7.7) Lymphocytes # (Auto) 1.57 10^3/uL1 (1.0-4.8) Monocytes # (Auto) 1.2 10^3/uL (0.3-0.8) H Absolute Immature Granulocyte (auto 0.03 10^3 u/L (0-2) Absolute Eosinophils (auto) 0.0 10^3/uL (0.0-0.2) Immature Granulocytes % 0.40 % (0.00-0.50) Eosinophils % 0.4 % (0.0-5.0) Basophils % 0.5 % (0.0-0.2) H Basophils # 0.0 10^3/uL (0.0-0.1) Prothrombin Time 11.2 SEC (9.6-12.0) Prothrombin Time INR (Non-Therap) 1.0 Activated Partial Thromboplast Time 25.9 SEC (24.67-30.72) D-Dimer 0.56 mg/L (0.19-0.49) *H Sodium Level 136 mmol/L (132-145) Potassium Level 3.6 mmol/L (3.6-5.2) Chloride Level 100.0 mmol/L (96-109) Carbon Dioxide Level 25.1 mmol/L (20.0-32) Anion Gap 14.5 Blood Urea Nitrogen 18 mg/dL (7-18) Creatinine 0.91 mg/dL (0.59-1.40) Estimated GFR () 72.3 (>/=60) Est GFR (CKD-EPI)(Non-Afr Austrian) 59.8 (>/=60) BUN/Creatinine Ratio 19.0 Glucose Level 116 mg/dL (70-110) H Lactic Acid Level 1.9 mmol/L (0.5-1.9) Calcium Level 9.2 mg/dL (8.4-10.5) Total Bilirubin 0.4 mg/dL (0.2-1.0) Aspartate Amino Transferase (AST) 25 U/L (0-35) Alanine Aminotransferase (ALT) 27 U/L (12-78) Alkaline Phosphatase 117 U/L (50-136) Total Creatine Kinase 44 U/L (26-192) Creatine Kinase MB 1.4 ng/mL (0.5-3.6) Troponin I 0.09 ng/mL (0.00-0.05) H Pro-B-Type Natriuretic Peptide 241 pg/mL (0-450) Total Protein 7.5 g/dL (6.4-8.2) Albumin 3.6 g/dL (3.4-5.0) Globulin 3.9 Albumin/Globulin Ratio 0.923 Procalcitonin < 0.05 ng/mL (0.05-0.5) L Blood Gas Sample Site RT BRACIAL ARTERY Blood pH 7.400 (7.350-7.450) Blood Gas PCO2 39.0 mmHg (35.0-45.0) Blood Gas PO2 77.6 mmHg (80.0-100.0) L Blood Gas HCO3 23.6 mmol/L (22.0-26.0) Blood Gas Base Excess -0.9 mmol/L (-2.0-2.0) Kobe Test N/A Arterial Blood Oxygen Saturation 95.1 % (94.0-97.00) Deoxyhemoglobin 4.9 % (0.0-5.0) Carboxyhemoglobin 0.4 % (0.0-3.9) Methemoglobin 0.1 % (0.00-5.0) Total Hemoglobin 14.9 % (12.0-17.8) Total Oxygen Concentration 19.8 % (13.5-17.5) H Blood Gas Temperature 37 Oxygen Delivery Method NASAL CANNULA FiO2 32 % (20-101) Total Carbon Dioxide 24.8 mmol/L (23-27) Progress Progress Patient received 3 breathing treatments [id number], 2 given by paramedics and 1 given in the ED. She also received Solu-Medrol 125mg IV and she took Levaquin at home this morning. She is still in mild to moderate respiratory distress and wheezing. She will be admitted for further management. EKG/XRAY/CT/US EKG: NSR, no ST T wave changes EKG Comments: HR 125, sinus tachycardia ER DEPART Departure Time of Disposition: 14:52 Disposition: ADMITTED INPATIENT Impression: Primary Impression: Respiratory disorder, unspecified Additional Impressions: Shortness of breath COPD exacerbation Condition: Stable Referrals: JADON REYES MD (PCP) PRIMARY CARE PROVIDER Comments Admitted by Dr. Reyes Duration or Time Spent with Pa: 60 min Problem Qualifiers FREDIS SANTACRUZ MD Jul 28, 2021 11:16
--- NOTE | 2021-07-28 11:17 | PCM.EKG ---
[facility] Test Date: 2021-07-28 Test Time: 11:15:00 Pat Name: GABBIE ECHAVARRIA Department: Room: 329 Gender: F Residential Installer: BRENDEN : 1940 Requested By: FREDIS SANTACRUZ Order Number: [id number] Reading MD: Fredis SANTACRUZ Measurements Intervals [place] Rate: 125 P: 81 [place]: 132 QRS: -70 QRSD: 100 T: 81 QT: 328 QTc: 473 Interpretive Statements Sinus tachycardia Consider right atrial enlargement RSR' in V1 or V2, probably normal variant Inferior infarct, old Compared to ECG 07/05/2021 15:25:40 Left anterior fascicular block no longer present Right ventricular hypertrophy no longer present ST (T wave) deviation no longer present Myocardial infarct finding still present Electronically Signed On 07-28-2021 18:58:07 CDT by Fredis SANTACRUZ Please click the below link to view image of tracing.
[2021-07-28 11:27] LABS: BE(B) -0.9 mmol/L (-2.0-2.0); HCO3act 23.6 mmol/L (22.0-26.0); pO2 77.6 mmHg (80.0-100.0)
[2021-07-28 11:31] LABS: BASOPHIL % 0.5 % (0.0-0.2); EOSINOPHIL % 0.4 % (0.0-5.0); LYMPHOCYTES # 1.57 10^3/uL1 (1.0-4.8); LYMPHOCYTES % 18.7 % (24.0-44.0); MEAN CORP HGB 31.9 pg (26-34); MONOCYTES # 1.2 10^3/uL (0.3-0.8); MONOCYTES % 13.8 % (5.0-12.0); NEUTROPHIL # 5.6 10^3/uL (1.8-7.7); NEUTROPHILS % 66.2 % (41.0-85.0); PLATELET COUNT 222 10^3/uL (150-400); RED CELL DISTRIBUTION WIDTH 13.4 % (11.5-14.5)
--- NOTE | 2021-07-28 11:33 | DIREP ---
PROCEDURE:CHEST 1 VIEW COMPARISON:[facility], CT, CT CHEST W/O, 11/26/2020, 10:08 PM. [facility], CR, XRAY CHEST SINGLE VW, 07/05/2021, 02:57 PM. INDICATIONS:SOB FINDINGS: LUNGS/PLEURA:Mild interstitial prominence throughout the bilateral hemithoraces may reflect senescent changes or underlying chronic lung disease. Opacities at the lung bases would suggest overlying soft tissue attenuation artifact from the anterior chest wall with suspected bilateral breast prostheses. There is additional opacity along the medial aspect of the right lung apex which is believed to relate to the soft tissues of the patient's neck, particularly given the enlarged thyroid gland seen on the previous CT. No suspicious airspace consolidation is identified. There is no pleural effusion or pneumothorax. VASCULATURE:Normal. Unremarkable pulmonary vasculature. CARDIAC:Normal. No cardiac silhouette abnormality or cardiomegaly. MEDIASTINUM:Mediastinal contours appear within acceptable limits with calcifications of the aorta. BONES:Degenerative changes of the spine. CONCLUSION: 1. Senescent changes versus potential underlying chronic lung disease such as COPD. No definite superimposed acute cardiopulmonary abnormality is identified. Dictated by: Carlos Manuel Wayne M.D. On 07/28/2021 at 11:28 AM
--- NOTE | 2021-07-28 11:35 | NUR ---
CRITICAL LAB COVID NEGATIVE REPORTED TO DR SANTACRUZ.
[2021-07-28 12:02] LABS: CALCIUM 9.2 mg/dL (8.4-10.5); CARBON DIOXIDE 25.1 mmol/L (20.0-32)
--- NOTE | 2021-07-28 12:56 | NUR ---
DR ERIC BETHEA MBA ON THE PHONE WITH DR REYES.
[2021-07-28] MEDS ORDERED: NS 1000ML 1,000 ML IV STA (13:00)
[2021-07-28] MEDS ORDERED: NS 1000ML 1,000 ML ONE (13:18)
[2021-07-28 13:24] VITALS: BP 111/55
[2021-07-28] MEDS ORDERED: ROBITUSSIN AC PO STA (13:44)
[2021-07-28] MEDS ORDERED: ROBITUSSIN DM ONE ×2 (13:45→13:46)
[2021-07-28 15:30] VITALS: BP 124/72
[2021-07-28] MEDS ORDERED: NITROSTAT SL PRN (15:30)
[2021-07-28] MEDS ORDERED: NS 250ML 250 ML ONE (15:36)
[2021-07-28] MEDS ORDERED: ROCEPHIN ONE (15:36)
[2021-07-28] MEDS ORDERED: NS 1000ML/KCL 20MEQ 1,000 ML IV ONE (15:36)
[2021-07-28] MEDS: ZITHROMAX 500 MG in NS 250ML 250 ML IV SCH (15:40)
[2021-07-28] MEDS: ROCEPHIN 1,000 MG in NS 100ML 100 ML IV SCH (15:40)
[2021-07-28] MEDS: NS 1000ML/KCL 20MEQ 1,000 ML IV SCH (15:40)
[2021-07-28 16:52] VITALS: BP 136/67
[2021-07-28] MEDS ORDERED: DUO 0.5-3(2.5) MG/3 ML IH SCH (18:00)
[2021-07-28] MEDS ORDERED: LANOLIN HYDROUS TP ONE (19:34)
[2021-07-28] MEDS: RANEXA PO SCH (20:27)
[2021-07-28] MEDS: MUCINEX PO SCH (20:27)
[2021-07-28] MEDS: LIPITOR PO SCH (20:27)
[2021-07-28] MEDS: XANAX PO SCH (20:27)
[2021-07-28 20:49] VITALS: BP 138/74
[2021-07-28] MEDS: DUO 0.5-3(2.5) MG/3 ML IH SCH (21:40)
[2021-07-28] MEDS: SOLU-MEDROL IV SCH (22:05)
[2021-07-28] MEDS: AMBIEN PO PRN (22:06)
[2021-07-29 00:01] VITALS: BP 160/88
[2021-07-29] MEDS ORDERED: VENTOLIN IH PRN (01:30)
[2021-07-29 04:00] VITALS: BP 136/67
[2021-07-29] MEDS: SOLU-MEDROL IV SCH ×3 (05:16→22:21)
--- NOTE | 2021-07-29 06:25 | NUR ---
pt had 50ml output from wound vac
[2021-07-29 08:00] VITALS: BP 148/86
[2021-07-29] MEDS: DUO 0.5-3(2.5) MG/3 ML IH SCH ×4 (08:30→21:00)
[2021-07-29] MEDS: PROTONIX PO SCH (09:30)
[2021-07-29] MEDS: ALDACTONE PO SCH (09:30)
[2021-07-29] MEDS: ULTRAM PO PRN (09:30)
[2021-07-29] MEDS: ASPIRIN EC PO SCH (09:31)
[2021-07-29] MEDS: RANEXA PO SCH ×2 (09:31→20:40)
[2021-07-29] MEDS: ENTRESTO 24 MG-26 MG TABLET PO SCH (09:31)
[2021-07-29] MEDS: MUCINEX PO SCH ×2 (09:31→20:40)
[2021-07-29] MEDS: XANAX PO SCH ×3 (09:33→20:40)
[2021-07-29] MEDS: NS 1000ML/KCL 20MEQ 1,000 ML IV SCH (09:33)
--- NOTE | 2021-07-29 09:57 | PCM.EKG ---
[facility] Test Date: 2021-07-29 Test Time: 09:50:07 Pat Name: GABBIE ECHAVARRIA Department: Room: 329 A Gender: F Rehab Technician: : 1940 Requested By: JADON REYES Order Number: [id number] Reading MD: Measurements Intervals [place] Rate: 113 P: 88 [place]: 136 QRS: -71 QRSD: 117 T: -83 QT: 331 QTc: 454 Interpretive Statements Sinus tachycardia Ventricular trigeminy RBBB and LAFB Nonspecific T abnormalities, lateral leads Compared to ECG 07/28/2021 11:15:00 Ventricular premature complex(es) now present Left anterior fascicular block now present Right bundle-branch block now present T-wave abnormality now present Myocardial infarct finding no longer present Please click the below link to view image of tracing.
[2021-07-29 12:00] VITALS: BP 131/73
--- NOTE | 2021-07-29 12:40 | NUR ---
UPDATE NOTIFIED DR REYES PATIENT REPORTS DIFFICULTY SWALLOWING HER FOOD AND REPORTS WEIGHT LOSS. ALSO NOTIFIED DR REYES PATIENT AND DAUGHTER STATE SHE IS DNR AND DNI. REQUESTED FOR CODE TO BE CHANGED IN CHART.
[2021-07-29 14:28] LABS: LYMPHOCYTES # 0.84 10^3/uL1 (1.0-4.8); LYMPHOCYTES % 9.9 % (24.0-44.0); MONOCYTES # 0.6 10^3/uL (0.3-0.8); MONOCYTES % 6.5 % (5.0-12.0); NEUTROPHIL # 7.1 10^3/uL (1.8-7.7); NEUTROPHILS % 83.2 % (41.0-85.0); PLATELET COUNT 221 10^3/uL (150-400); RED CELL DISTRIBUTION WIDTH 13.3 % (11.5-14.5)
[2021-07-29 14:47] LABS: CALCIUM 8.6 mg/dL (8.4-10.5); CARBON DIOXIDE 23.7 mmol/L (20.0-32)
--- NOTE | 2021-07-29 14:48 | HPH ---
ADMIT DATE: 07/29/2021 DICTATOR NAME: Jonathan Alfonso MD The patient was admitted on 07/28/2021. I put the orders in and I saw her on 07/29/2021. CHIEF COMPLAINT: Marked shortness of breath and wheezing. HISTORY OF PRESENT ILLNESS: The patient is a 80-year-old white female with underlying history of COPD, cor pulmonale, hypertension, hypertensive heart disease and has chronic diastolic heart failure, cardiomyopathy and also has significant congestive heart failure, on Entresto. At the present time, she has been sick for one week with cough, phlegm, and shortness of breath. She called the office, was given oral antibiotic, but she continued to feel very weak and has been unable to swallow, has lost about 10 pounds in the last 4-6 weeks and has dysphagia and significant cough and she was having acute respiratory distress with severe bronchospasm and was given Xopenex nebulizer treatment along with IV steroids and she still was extremely short of breath with acute bronchospasm with accessory muscles of respiration working. Hence admitted for COPD with acute exacerbation for further evaluation and management. ALLERGIES: IODINE, CONTRAST MEDIA, SULFONAMIDE, CODEINE, HYDROCODONE. MEDICATIONS: She is on Ranexa 1000 mg twice a day; prednisone 20 mg once a day; aspirin 81 mg once a day; Aldactone 12.5 mg once a day; Entresto one tablet once a day, she is supposed to be taking twice a day; nitroglycerin on p.r.n. basis just was given; Levaquin 500 mg daily for 8-10 days; and she is on Flonase and allergy nasal spray 2 puffs in the morning; on Protonix 40 mg once daily; Lipitor 40 mg once a day; Mucinex 600 mg once a day; and Ambien 5 mg once a day along with Xanax 0.5 mg 3 times a day; and she is on Breo Ellipta 1 puff twice a day; and albuterol rescue inhaler on a p.r.n. basis. PAST MEDICAL HISTORY: History of coronary artery disease. I think she has had one stent in the past. She has got chronic systolic heart failure, COPD, high cholesterol, and thyroid disease. She had recurrent pneumonia last year and I think her COVID tests were negative. SOCIAL HISTORY: No drug abuse. No history of any smoking, has COPD. FAMILY HISTORY: Not much available from the patient. PHYSICAL EXAMINATION: GENERAL: On 07/29/2021, she is 152 cm, 44.6 kilograms. She has lost weight significantly. BMI is low at 19.2. VITAL SIGNS: Have improved. Heart rate is 106, respirations were 20, 148/86 blood pressure. When she came in, her respirations were about 30. She is saturating 96% on 2 liters nasal cannula. NECK: JVD was noted up to the angle of jaw. No definite carotid bruits were noted. CHEST: Showed poor respiratory effort with no significant adventitious sound at the present time. HEART: S1, S2 normal. Decreased air entry in both lungs. ABDOMEN: Soft, nontender. EXTREMITIES: Distal pulses poorly felt. NEUROLOGIC: She is alert, awake, oriented and cognitive function is intact. No cranial nerve abnormalities. No lateralizing motor deficit and no edema was noted. LABORATORY DATA: Showed 8.4 white count and 46.1 hematocrit. Chemistries were all normal, 116 glucose with a troponin of 0.09 and procalcitonin was less than 0.05. Rapid test was negative for COVID. D-dimer 0.56. Urine and blood cultures were done. Chest x-ray was showing senescent changes in both lungs. No definite acute infiltrate was noted. IMPRESSION: Chronic obstructive pulmonary disease with acute exacerbation, respiratory distress, chronic systolic heart failure, hypertension, hypertensive heart disease, coronary artery disease. PLAN: At this time, we will admit. The patient will be started on DuoNeb nebulizer treatment 4 times a day along with IV steroids, empiric antibiotics and clinical followup. We will do a barium swallow for her problem of dysphagia. Jonathan Alfonso MD DR: SARAH/COLT/MARJORIE TID: [id number] RECEIPT: [id number]
[2021-07-29] MEDS: ROCEPHIN 1,000 MG in NS 100ML 100 ML IV SCH (15:15)
[2021-07-29] MEDS: ZITHROMAX 500 MG in NS 250ML 250 ML IV SCH (16:25)
[2021-07-29 17:11] VITALS: BP 140/74
[2021-07-29] MEDS: LIPITOR PO SCH (20:40)
[2021-07-29 20:56] VITALS: BP 122/72
[2021-07-29] MEDS: AMBIEN PO PRN (23:32)
[2021-07-30 00:15] VITALS: BP 143/72
[2021-07-30] MEDS: DUO 0.5-3(2.5) MG/3 ML IH SCH ×2 (03:20→11:13)
[2021-07-30] MEDS: NS 1000ML/KCL 20MEQ 1,000 ML IV SCH (03:28)
[2021-07-30 04:32] VITALS: BP 122/76
[2021-07-30] MEDS: SOLU-MEDROL IV SCH (05:11)
[2021-07-30] MEDS: ULTRAM PO PRN (05:40)
[2021-07-30 07:16] VITALS: BP 126/74
[2021-07-30] MEDS: PROTONIX PO SCH (08:11)
[2021-07-30] MEDS: MUCINEX PO SCH ×2 (08:11→20:32)
[2021-07-30] MEDS: ASPIRIN EC PO SCH (08:11)
[2021-07-30] MEDS: XANAX PO SCH ×3 (08:11→20:32)
[2021-07-30] MEDS: ENTRESTO 24 MG-26 MG TABLET PO SCH (08:11)
[2021-07-30] MEDS: RANEXA PO SCH ×2 (08:11→20:32)
[2021-07-30] MEDS: ALDACTONE PO SCH (08:12)
[2021-07-30] MEDS ORDERED: LASIX IV STA (12:11)
[2021-07-30 12:25] VITALS: BP 156/88
[2021-07-30] MEDS ORDERED: HEPARIN 500 UNIT/5 ML (100/ML) IV PRN (12:30)
[2021-07-30] MEDS ORDERED: LASIX ONE (13:41)
--- NOTE | 2021-07-30 14:26 | DIREP ---
PROCEDURE:CHEST 2 VIEWS COMPARISON:[facility], CR, XRAY CHEST SINGLE VW, 07/28/2021, 10:50 AM. [facility], CR, XRAY CHEST SINGLE , 07/05/2021, 02:57 PM. INDICATIONS:pneumonia FINDINGS: LUNGS/PLEURA:No consolidation. Blunting of the left costophrenic angle consistent with pleural effusion/reaction VASCULATURE:Normal. Unremarkable pulmonary vasculature. CARDIAC:Normal. No cardiac silhouette abnormality or cardiomegaly. MEDIASTINUM:Normal. No visible mass or adenopathy. BONES:No kyphotic deformity OTHER:Negative. CONCLUSION:Left basilar infiltrate or effusion. Dictated by: Leona Ibarra MD on 07/30/2021 at 02:21 PM
[2021-07-30] MEDS: XOPENEX IH SCH ×2 (15:08→21:05)
[2021-07-30] MEDS: ROCEPHIN 1,000 MG in NS 100ML 100 ML IV SCH (15:44)
[2021-07-30 15:45] VITALS: BP 150/91
[2021-07-30 20:26] VITALS: BP 115/74
[2021-07-30] MEDS: LIPITOR PO SCH (20:32)
[2021-07-30] MEDS: PULMICORT IH SCH (21:05)
[2021-07-30] MEDS: AMBIEN PO PRN (22:20)
[2021-07-31 00:15] VITALS: BP 106/53
[2021-07-31] MEDS: XOPENEX IH SCH ×2 (03:15→09:00)
[2021-07-31 04:00] VITALS: BP 129/75
[2021-07-31 07:40] VITALS: BP 149/85
[2021-07-31] MEDS: PULMICORT IH SCH (09:00)
[2021-07-31] MEDS ORDERED: HEPARIN SQ SCH (09:00)
[2021-07-31 11:31] VITALS: BP 137/71
[2021-07-31] MEDS: ALDACTONE PO SCH (11:46)
[2021-07-31] MEDS: ENTRESTO 24 MG-26 MG TABLET PO SCH (11:47)
[2021-07-31] MEDS: MUCINEX PO SCH (11:47)
[2021-07-31] MEDS: ASPIRIN EC PO SCH (11:47)
[2021-07-31] MEDS: XANAX PO SCH (11:48)
[2021-07-31] MEDS: PROTONIX PO SCH (11:48)
[2021-07-31] MEDS: RANEXA PO SCH (11:48)
--- NOTE | 2021-07-31 12:18 | DIREP ---
PROCEDURE:XRAY ESOPHAGUS COMPARISON:None. INDICATIONS:dysphagia and wt loss, 16 images, 2.3 minutes fluoro, 15.34 mGy TECHNIQUE:The patient swallowed barium and effervescent material under fluoroscopic observation of the esophagus, stomach, and proximal small bowel. Multiple spot and overhead films were obtained. FINDINGS: ESOPHAGUS:Mild tertiary contractions are seen of the esophagus. No stricture or hiatal hernia is demonstrated. STOMACH:Normally distensible and free of filling defects. DUODENUM:Normal. No evidence of ulcer disease. OTHER:Negative. FLUORO TIME: 2.3 minutes NUMBER OF IMAGES: 16 CONCLUSION:There are findings of mild tertiary contractions of the esophagus which is otherwise normal. Dictated by: Torres Rosales M.D. on 07/31/2021 at 12:14 PM
--- NOTE | 2021-07-31 12:36 | DSH ---
DATE OF DISCHARGE: 07/31/2021 DICTATOR NAME: Jonathan Alfonso MD FINAL DIAGNOSES: Chronic obstructive pulmonary disease with acute exacerbation, left lung pneumonia, nonischemic cardiomyopathy, chronic systolic heart failure, hypertension, hypertensive heart disease, dysphagia, chronic constipation require EGD, colonoscopy. Barium swallow report awaited. Please refer to my history and physical to the point of my impression. HOSPITAL COURSE: The patient is a 80-year-old white female who has got COPD of severe degree, on oxygen therapy, has had recurrent pneumonias and pulmonary infection with pneumonia. With pneumonias in the past and she presented with cough, phlegm, shortness of breath and was on outpatient Levaquin, but after 1 day was having significant wheezing and had an acute reactive component and was came to the Emergency Room, was given nebulizer treatment and had respiratory distress with respirations of 28-30 and was stabilized on IV steroids and empiric antibiotics with Rocephin and Zithromax and at the present time, she is feeling much better and she is on oxygen 2 liters nasal cannula. Barium swallow is done this morning, results are still awaited, but she wants to go home. She was sent home on her home medications on Xanax 0.5 mg 3 times a day for severe anxiety, aspirin 81 mg once a day, Lipitor 80 mg once a day, Flonase nasal inhaler and Breo Ellipta 1 puff twice a day and Mucinex 600 mg twice a day, Levaquin 500 mg daily for another 6-7 days, nitroglycerin on p.r.n. basis, Protonix 40 mg once a day, prednisone 20 mg once a day. She has been on chronic prednisone therapy. We will see her back in the office next week and tapered it from 20 to 10 mg daily, Ranexa 1 gram twice a day for chronic stable angina with non-flow obstructive coronary artery disease and for her chronic systolic heart failure, on Entresto 24/ 1 tablet daily and Aldactone 12.5 mg once a day, Ultram 50 mg 3 times a day on p.r.n. basis for pain and Ambien 5 mg at bedtime. We will see her back in the clinic next week and we will discuss the findings of barium swallow and make arrangements for EGD, colonoscopy. Jonathan Alfonso MD DR: SARAH/AIDA TID: [id number] RECEIPT: [id number]
[2021-07-31 14:17] VITALS: BP 137/71
--- NOTE | 2021-07-31 14:17 | NUR ---
DISCHARGE PATIENT GIVEN DISCHARGE PACKET INCLUDING EDUCATION AND WHEN TO SEEK MEDICATION ATTENTION. PATIENT VERBALIZED UNDERSTANDING OF EDUCATION PROVIDED AT DISCHARGE. PATIENT DENIES HAVING ANY QUESTIONS OR CONCERNS AT THIS TIME. PATIENT IS STABLE WITH NO SIGNS OF DISTRESS NOTED AT THIS TIME. IV DC'D AT THIS TIME;NO REDNESS OR SWELLING NOTED AT SITE. PATIENT TAKEN DOWN TO PRIVATE VEHICLE DRIVEN BY FAMILY VIA WHEELCHAIR BY MARIALUISA GONZALEZ. RELINQUISHED CARE OF PATIENT AT THIS TIME.
--- NOTE | 2021-07-31 21:42 | PNH ---
DATE: 07/30/2021 DICTATOR NAME: Jonathan Alfonso MD SUBJECTIVE: The patient is feeling much better. Her breathing has improved significantly OBJECTIVE: VITAL SIGNS: Her vital signs are stable. GENERAL: Afebrile, having difficulty swallowing, has got a history of constipation and very irregular BMs wants the colonoscopy done, but will probably do it as an outpatient. NECK: No JVD. RESPIRATORY: Air entry is improved bilaterally and has been on methylprednisone along with the nebulizer treatment and I have stopped her methylprednisone. She takes prednisone 20 mg daily at home orally. We will probably resume it when she goes home. HEART: Sounds are normal. EXTREMITIES: No leg edema. IMPRESSION: Chronic obstructive pulmonary disease, acute exacerbation with left basilar infiltrate. Has early pneumonia with acute reactive component, history of nonischemic cardiomyopathy, congestive heart failure, chronic systolic heart failure, dysphagia, constipation. PLAN: At this time, continue same therapy and we will do barium swallow tomorrow for dysphagia and probably we will follow through with GI as an outpatient for both EGD and colonoscopy. Medicine changes have been made. After barium swallow okay to be discharged on 07/31/2021. Jonathan Alfonso MD DR: SURESH TID: [id number] RECEIPT: [id number]
--- NOTE | 2021-08-01 07:51 | NUR ---
DISCHARGE PLANNING PER REVIEW OF PATIENT'S CHART - PATIENT CURRENTLY LIVES@HOME ALONE AND IND WITH ALL ADL, - HAS O2 IN PLACE AND SEES DR REYES FOR PCP. PATIENT HAS HOME HEALTH IN PLACE. CM CONTACTED PATIENT'S DAUGHTER RACHEL MCKENZIE. PATIENT'S DAUGHTER REPORTS THAT PATIENT DOES NOT HAVE HOME HEALTH, BUT THEY WOULD LIKE TO SEE IF PATIENT COULD GET HOME HEALTH SET UP. PATIENT AND FAMILY REQUEST [facility]. CM CONTACTED DR REYES ABOUT PATIENT'S FAMILY REQUEST. CM RECEIVED DR REYES'S APPROVAL THIS AM AND CM FAXED CLINICALS TO [email or web address] PER PATIENT'S FAMILIES REQUEST. CM CONTACTED [facility] AND INFORMED OF NEW HH REFERRAL.
== END 2021-07-31 15:51 | disposition home health service (06) | DRG 190 ==
LOC: ER 10:50 → EDBD 10:50 → MS 14:50
PROVIDERS: ADMIT Specialist; ATTEND Specialist
DX: J44.0 Chronic obstructive pulmonary disease with (acute) lower respiratory infection (principal); J18.9 Pneumonia, unspecified organism; I42.8 Other cardiomyopathies; I50.42 Chronic combined systolic (congestive) and diastolic (congestive) heart failure; J44.1 Chronic obstructive pulmonary disease with (acute) exacerbation; Z20.822 Contact with and (suspected) exposure to COVID-19; I27.81 Cor pulmonale (chronic); I25.10 Atherosclerotic heart disease of native coronary artery without angina pectoris; I11.0 Hypertensive heart disease with heart failure; E78.00 Pure hypercholesterolemia, unspecified; F41.9 Anxiety disorder, unspecified; I25.118 Atherosclerotic heart disease of native coronary artery with other forms of angina pectoris; K59.09 Other constipation; R13.10 Dysphagia, unspecified; Z79.52 Long term (current) use of systemic steroids; Z79.82 Long term (current) use of aspirin; Z79.899 Other long term (current) drug therapy; Z91.041 Radiographic dye allergy status; Z88.5 Allergy status to narcotic agent; Z88.8 Allergy status to other drugs, medicaments and biological substances
CPT/HCPCS: 36415; 36600; 71045; 71046; 74220; 80053; 82550; 82553; 82803; 83605; 83735; 83880; 84145; 84484; 85025; 85379; 85610; 85730; 87040; 87070; 87205; 87426; 93005; 94640; 99285; G0378; J0456; J0696; J1100; J1644; J2930; J3490; J7030; J7050; J7613; J7627; J1940

== ENCOUNTER → 2022-05-23 | Outpatient (CLI) | payer MEDICARE, BC ==
[~2022-05-23] MED LIST changes: -LEVO500T8 PO; +LEVO500T9 PO; +POTA-148 PO; -POTA20TA14 PO
--- NOTE | 2022-05-23 16:31 | DIREP ---
PROCEDURE:XRAY HIP MIN 2VW-LT COMPARISON:None. INDICATIONS:M25.552 PAIN IN LEFT HIP FINDINGS: BONES:No visible fracture. Ilioischial and iliopectineal lines are intact. Small acetabular osteophytes. JOINTS:Mild hip joint space loss. No dislocation SOFT TISSUES:Dystrophic calcifications in the bilateral gluteal regions. OTHER:No additional findings. CONCLUSION:Mild hip arthropathy. Dictated by: Nic Rutledge M.D. on 05/23/2022 at 03:26 PM Read in [place]
== END | disposition home or self-care (01) ==
LOC: RAD 14:26
PROVIDERS: ATTEND Nurse Practitioner Family
DX: M25.552 Pain in left hip (principal); M12.852 Other specific arthropathies, not elsewhere classified, left hip
CPT/HCPCS: 73502

== ENCOUNTER 2022-07-31 15:55 | Inpatient (IN) | payer MEDICARE, BC ==
[2022-07-31] VITALS (26 sets, daily range): BP systolic 88–146; BP diastolic 40–101
[~2022-07-31] VITALS: Ht 152.4 cm; Wt 44.9 kg
[~2022-07-31 15:55] MED LIST changes: -AMBIEN ONE; -CARV3.122 PO; -XOPENEX IH ONE
[2022-07-31] MEDS ORDERED: SOLU-MEDROL IV STA (16:01)
[2022-07-31] MEDS ORDERED: NS 500ML IV ONE (16:30)
[2022-07-31] MEDS ORDERED: WATER 20 ML ONE (16:32)
[2022-07-31] MEDS: NS 1000ML/KCL 20MEQ 1,000 ML IV SCH (16:37)
[2022-07-31 16:46] LABS: MEAN CORP HGB 32.1 pg (26-34); RED CELL DISTRIBUTION WIDTH 12.6 % (11.5-14.5)
[2022-07-31] MEDS: XOPENEX IH SCH ×2 (17:00→21:42)
[2022-07-31] MEDS: ULTRAM PO PRN (17:02)
[2022-07-31] MEDS ORDERED: NS 100ML 100 ML IV ONE (17:10)
[2022-07-31] MEDS ORDERED: ROCEPHIN ONE (17:10)
[2022-07-31 17:13] LABS: CARBON DIOXIDE 28.2 mmol/L (20.0-32)
[2022-07-31] MEDS: ROCEPHIN 1,000 MG in NS 100ML 100 ML IV SCH (17:14)
[2022-07-31 17:40] LABS: ABG PCO2 33.4 mmHg (35.0-45.0); ABG PH 7.523 (7.350-7.450); BE(B) 4.4 mmol/L (-2.0-2.0); HCO3act 26.8 mmol/L (22.0-26.0); pO2 66.5 mmHg (80.0-100.0)
--- NOTE | 2022-07-31 18:11 | NUR ---
1700 BREATHING TREATMENT NOT DONE DUE TO RT UNAVAILABLE
[2022-07-31] MEDS ORDERED: NS 250ML 250 ML ONE (18:13)
[2022-07-31] MEDS: ZITHROMAX 500 MG in NS 250ML 250 ML IV SCH (18:17)
--- NOTE | 2022-07-31 18:35 | NUR ---
REPORT RECEIVED FROM RENE CID. ASSUMED PT CARE.
[2022-07-31] MEDS: MUCINEX PO SCH (20:31)
[2022-07-31] MEDS: AMBIEN PO PRN (20:31)
[2022-07-31] MEDS: LIPITOR PO SCH (20:31)
[2022-07-31] MEDS: COREG PO SCH (20:32)
[2022-07-31] MEDS: ATIVAN PO SCH (20:32)
[2022-07-31] MEDS: RANEXA PO SCH (20:32)
[2022-07-31] MEDS ORDERED: RANEXA PO SCH (21:00)
[2022-07-31] MEDS ORDERED: MUCINEX PO SCH (21:00)
--- NOTE | 2022-07-31 22:06 | HPH ---
ADMIT DATE: 07/31/2022 DICTATOR NAME: Jonathan Alfonso MD CHIEF COMPLAINT: Marked wheezing, shortness of breath and severe COPD. 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, multiple hospitalizations for exacerbation of COPD with underlying history of hypertension, hypertensive heart disease, hypertrophic cardiomyopathy, nonobstructive variety and she has been feeling poorly for a week with cough, phlegm, shortness of breath, wheezing, blood pressure was 85 systolic when she came in and her echo, which did show significant hypertrophy, left ventricular concentric nature with small LV cavity with hypovolemic status and good wall contractility and ejection fraction was normal, almost obliteration of the LV cavity was documented and the right ventricle was normal in size with thickening of anterior right ventricular wall consistent with pressure overload and she was found to be in COPD with acute exacerbation of possibility of left lung pneumonia was considered, hence admitted for further evaluation and management. ALLERGIES: SULFONAMIDE, CODEINE, HYDROCODONE, IODINATED CONTRAST MEDIA. MEDICATIONS: The patient has been on a list of medications. See my office note for detail. Apparently, she has not been seen for a while and she is not vaccinated. Has had severe COVID in 2019 and I think she has had COVID x2. She is admitted with a subendocardial myocardial infarction and over a year and a half ago, the catheterization did not show any flow obstructive coronary artery disease, had EKG changes and mild troponin elevation at that time and has severe COPD. CURRENT MEDICATION LIST: [] Breo Ellipta 1 puff daily, nitroglycerin on p.r.n. basis, prednisone 40 mg once a day; Entresto one tablet daily, Aldactone 12.5 mg once a day, aspirin 81 mg once a day, Lipitor 40 mg once a day, Mucinex 600 mg twice a day, Protonix 40 mg once a day, Ranexa 1000 mg twice a day, tramadol 50 mg t.i.d. p.r.n. pain, Ambien 5 mg once a day and Flonase inhaler and Xanax 0.5 mg 3 times a day on p.r.n. basis. PAST MEDICAL HISTORY: Already narrated with COPD and multiple hospitalizations for pneumonia. SOCIAL HISTORY: Prior history of significant smoking almost 38-[id number]-push history of smoking. No history of any ethanol abuse. FAMILY HISTORY: Positive for heart problems. PHYSICAL EXAMINATION: GENERAL: Alert, awake, oriented, 152 cm, 48 kilograms. BMI 30.8. VITAL SIGNS: Blood pressure in the clinic was 85 systolic, respirations were 24, 110 pulse and saturation was 92-93%. HEENT: Unremarkable. NECK: JVD up to the angle of jaw. No definite carotid bruits were noted. CHEST: Barrel-shaped chest, severe emphysema noted. LUNGS: Poor air entry bilaterally. Rhonchi wheezing bilaterally, more so on the left lung base with significant rales and decreased air entry. HEART: Sounds S1, S2 normal. Tachycardia noted. ABDOMEN: Scaphoid, soft, nontender. EXTREMITIES: Proximal muscle wasting. Distal pulses poorly felt. Mild dependent edema noted. NEUROLOGIC: No focal neuro deficit is documented. LABORATORY DATA: Showed normal CBC. Chemistry showed BUN of 23, creatinine 0.94. Her procalcitonin was normal. Blood gases were fairly acceptable with respiratory alkalosis with 7.52 pH with a pCO2 of 33. D-dimer was mildly elevated. Chest x-ray was reported []. IMPRESSION: Chronic obstructive pulmonary disease, acute exacerbation; hypotension; possibility of sepsis; prior history of subendocardial infarction; hypovolemia. PLAN: At this time, IV fluids, empiric antibiotics, IV steroids, nebulizer treatment and clinical followup. Jonathan Alfonso MD DR: SARAH/TITI/KATIE TID: [id number] RECEIPT: [id number]
[2022-07-31] MEDS: SOLU-MEDROL IV SCH (23:30)
[2022-08-01] VITALS (80 sets, daily range): BP systolic 91–160; BP diastolic 40–107
[2022-08-01] MEDS: ULTRAM PO PRN ×3 (02:08→21:05)
[2022-08-01] MEDS: NS 1000ML/KCL 20MEQ 1,000 ML IV SCH ×3 (05:44→15:30)
[2022-08-01] MEDS: SOLU-MEDROL IV SCH ×3 (06:14→21:06)
--- NOTE | 2022-08-01 06:35 | NUR ---
REPORT TO ONCOMING SHIFT. PT CARE RELINQUISHED.
[2022-08-01] MEDS: COREG PO SCH ×2 (08:15→21:04)
[2022-08-01] MEDS: PROTONIX PO SCH (08:15)
[2022-08-01] MEDS: MUCINEX PO SCH ×2 (08:15→21:04)
[2022-08-01] MEDS: ASPIRIN EC PO SCH (08:15)
[2022-08-01] MEDS: ATIVAN PO SCH ×2 (08:15→21:04)
[2022-08-01] MEDS: RANEXA PO SCH ×2 (08:15→21:05)
--- NOTE | 2022-08-01 08:56 | PCM.EKG ---
[facility] Test Date: 2022-07-31 Test Time: 17:25:33 Pat Name: GABBIE ECHAVARRIA Department: Room: ICU5 A Gender: F Data Entry Processor: : 1940 Requested By: JADON REYES Order Number: [id number] Reading MD: Measurements Intervals [place] Rate: 108 P: 0 AR: 92 QRS: -57 QRSD: 123 T: 103 QT: 403 QTc: 540 Interpretive Statements Sinus tachycardia Multiform ventricular premature complexes Short AR interval RBBB and LAFB Nonspecific T abnormalities, lateral leads ST elevation, consider inferior injury Baseline wander in lead(s) I,II,aVR,V2,V4 No previous ECG available for comparison Please click the below link to view image of tracing.
[2022-08-01] MEDS ORDERED: PROTONIX PO SCH (09:00)
[2022-08-01] MEDS: XOPENEX IH SCH ×4 (09:48→21:41)
--- NOTE | 2022-08-01 11:11 | NUR ---
DISCHARGE PLAN- [facility] CM AT BEDSIDE TO VISIT WITH PATIENT REGARDING D/C PLAN AND GOALS PATIENT LIVES AT HOME ALONE. SHE IS IND OF MOST ADLS. PT DOES NOT COOK BUT HER DAUGHTER CLAIRE IS VERY SUPPORTIVE OF HER NEEDS. CLAIRE WILL DRIVE HER AROUND FOR ERRANDS AND DR APPOINTMENTS SHE HAS NOT BEEN DRIVING MUCH LATELY D/T HER VISION IS WORSENING. PT HAS A WALKER, NEBULIZER, AND HOME [address] HER O2 IS SET AT 3L/NC BUT SHE HAS BEEN ON RA WHILE HOSPITALIZED AND SHE DOES HAVE SOB WITH EXERTION AND TALKING. PATIENTS PCP IS [facility] AND Joe REYES FOLLOWS HER FOR CARDIOLOGY. CM OFFERED TO SET UP FOLLOW UP APPOINTMENT WITH [facility] AND PATIENT VERBALLY DECLINED STATING "I WILL SCHEDULE A F/U AFTER ERIC FIGURES OUT WHAT I NEED." CM ASKED IF PATIENT CURRENTLY HAS HH IN PLACE AND SHE STATED "NO". CM ASKED IF SHE WOULD LIKE HH ON D/C, PT HESITATED AND DECIDED SHE WOULD LIKE HH ON D/C AND SIGNED CHOICE LETTER FOR [facility]. CM EDUCTED THAT REFERRAL WOULD BE MADE AT D/C PT VERBALIZED UNDERSTANDING. DISCHARGE GOAL IS FOR PATIENT TO D/C BACK HOME TO ROUTINE CARE WITH SUPPORT OF HER DAUGHTER AND [facility] TO FOLLOW WITH EDUCATION AND PT EVALUATION. Addendum: 08/02/22 at 1623 by Robyn Vasquez RN - Piano Mechanic Apprentice RN CM FAXED REFERRAL TO [facility] FAX CONFIRMED COMPLETE. Mary HAGER AND Joe OLVIER NOTIFIED OF REFERRAL
--- NOTE | 2022-08-01 15:20 | DIREP ---
PROCEDURE:CHEST 1 VIEW COMPARISON:[facility], CR, XRAY CHEST 2 VWS, 07/30/2021, 12:56 PM. INDICATIONS:pneumonia FINDINGS: LUNGS/PLEURA:Hyperinflated lung finley chronic interstitial changes. Grossly stable left pleural/parenchymal scarring versus small pleural effusion. No right pleural effusion. No pneumothorax. VASCULATURE:Unremarkable pulmonary vasculature. Calcified aortic arch. CARDIAC:Normal. No cardiac silhouette abnormality or cardiomegaly. MEDIASTINUM:Normal. No visible mass or adenopathy. BONES:Degenerative change without evidence of acute osseus abnormality. OTHER:EKG leads overlie the chest. CONCLUSION: 1. Left pleural/parenchymal scarring versus small pleural effusion. 2. No focal consolidation. Dictated by: Suhail Thurman MD on 08/01/2022 at 03:17 PM
[2022-08-01] MEDS: ROCEPHIN 1,000 MG in NS 100ML 100 ML IV SCH (15:31)
[2022-08-01] MEDS: TYLENOL PO PRN ×2 (15:39→23:30)
[2022-08-01] MEDS: ZITHROMAX 500 MG in NS 250ML 250 ML IV SCH (17:02)
--- NOTE | 2022-08-01 18:30 | NUR ---
REPORT RECEIVED FROM RENE GUERRERO. ASSUMED PT CARE.
--- NOTE | 2022-08-01 20:33 | PNH ---
DATE: 08/01/2022 DICTATOR NAME: Jonathan Alfonso MD SUBJECTIVE: Significant overall improvement has been achieved in her breathing. OBJECTIVE: VITAL SIGNS: Stable. NECK: No JVD, no carotid bruits. LUNGS: Coarse rales in the left lung base. Still awaiting x-ray reported. HEART: Sounds are normal. LABORATORY DATA: Biochemical labs are all acceptable. IMPRESSION: End-stage chronic obstructive pulmonary disease, acute exacerbation, possible lung pneumonia; hypertrophic cardiomyopathy; old myocardial infarction; general debility. PLAN: At this time, continue same optimized medical therapy. Chest x-ray is still awaited. We will transfer to the floor by tomorrow if everything is stable and we will start her on oral steroids and if no active infiltration documented, then we will discharge her home tomorrow. Jonathan Alfonso MD DR: GILLIAN TID: [id number] RECEIPT: [id number]
[2022-08-01] MEDS: AMBIEN PO PRN (21:05)
[2022-08-01] MEDS: LIPITOR PO SCH (21:05)
[2022-08-01] MEDS ORDERED: SOLU-MEDROL IV SCH (22:00)
[2022-08-02] VITALS (45 sets, daily range): BP systolic 98–173; BP diastolic 46–91
[2022-08-02] MEDS: NS 1000ML/KCL 20MEQ 1,000 ML IV SCH ×2 (02:02→08:40)
[2022-08-02] MEDS: SOLU-MEDROL IV SCH (05:55)
--- NOTE | 2022-08-02 06:19 | NUR ---
PT STATUS: PT ASSISTED OUT OF BED TO USE BSC AND ON GETTING BACK TO BED REPORTED OF SOB, AND AUDIBLE WHEEZING NOTIFIED. PT REQUESTING BREATHING TREATMENT AND REPORTS "I AM HAVING TROUBLE BREATHING". RT NOTIFIED FOR BREATHING TREATMENT.
[2022-08-02] MEDS ORDERED: XOPENEX IH ONE ×2 (06:20→07:43)
--- NOTE | 2022-08-02 06:47 | NUR ---
REPORT TO ONCOMING SHIFT. PT CARE RELINQUISHED.
--- NOTE | 2022-08-02 07:45 | NUR ---
REPORT RECEIVED FROM RENE SANTAMARIA [facility]
--- NOTE | 2022-08-02 08:00 | NUR ---
[facility] APPROACHED BY VIKI RN REGARDING PT NEEDING TO BE PLACED ON Q15MIN CHECKS D/T [facility] INITIAL SCREEN. PT LOW RISK SINCE [id number]/01/22. ORDER PLACED FOR [facility] NURSING PSYCH EVALUATION PER PROTOCOL BY THIS NURSE. SPOKE TO DONG IN U, TO NOTIFY OF PENDING EVALUATION.
[2022-08-02] MEDS: ASPIRIN EC PO SCH (08:39)
[2022-08-02] MEDS: COREG PO SCH (08:39)
[2022-08-02] MEDS: RANEXA PO SCH (08:40)
[2022-08-02] MEDS: ATIVAN PO SCH (08:40)
[2022-08-02] MEDS: MUCINEX PO SCH (08:40)
[2022-08-02] MEDS: PROTONIX PO SCH (08:40)
[2022-08-02] MEDS: XOPENEX IH SCH ×2 (08:57→13:47)
--- NOTE | 2022-08-02 10:10 | NUR ---
[facility] - PSYCH NURSE JUSTUS LINCOLN AT BEDSIDE TO COMPLETE EVALUATION
--- NOTE | 2022-08-02 10:15 | NUR ---
MED SURG PT CONVERTED TO MED SURG STATUS/MED SURG OVERFLOW
--- NOTE | 2022-08-02 10:16 | NUR ---
DR REYES - ORDERS TRANSFER TO MED SURG PO 40MG PREDNISONE, ONE TIME, NOW. ORDERS PLACED BY THIS NURSE.
[2022-08-02] MEDS ORDERED: PREDNISONE PO SCH (10:30)
--- NOTE | 2022-08-02 10:42 | NUR ---
PSYCH NURSE [facility]: PSYCH NURSE [facility] COMPLETED AND PLACED IN PATIENT'S CHART. PATIENT IS LOW RISK FOR SUICIDE AND DOES NOT MEET INPATIENT CRITERIA FOR INPATIENT PSYCH. Addendum: 08/02/22 at 1131 by Sonia PANDA FARZAD DID NOTIFY CM REGARDING [facility] FINDINGS AND PT WOULD NEED RESOURCE LIST UPON DISCHARGE.
[2022-08-02] MEDS ORDERED: CARV3.122 PO (10:50)
[2022-08-02] MEDS ORDERED: PRED20TA PO (10:50)
--- NOTE | 2022-08-02 15:11 | NUR ---
DISCHARGE EDUCATION SESSION HELD WITH PT AND DAUGHTER. PT DENIES PAIN AND NO APPARENT ACUTE DISTRESS NOTED. SUICIDE PREVENTION RESOURCES GIVEN AND REVIEWED WITH PT. FOLLOW UP INSTRUCTIONS AND NEW/CURRENT MEDICATION EDUCATION ADDRESSED WITH PT AND DAUGHTER, NEW PRESCRIPTIONS CALLS IN TO [facility] BY RENE GHOSH. BOTH VERBALIZED UNDERSTANDING. PT LEFT UNIT VIA WHEELCHAIR ESCORTED BY THIS NURSE. LEFT WITH DAUGHTER IN PERSONAL VEHICLE. RELINQUISHED CARE.
--- NOTE | 2022-08-02 21:40 | DSH ---
DICTATOR NAME: Jonathan Alfonso MD FINAL DIAGNOSES: Chronic obstructive pulmonary disease with acute exacerbation with viral bronchitis, hypotension, hypovolemia, end-stage chronic obstructive pulmonary disease, possible sepsis which seems to have been ruled out, respiratory alkalosis. Please refer to my history and physical to the point of my impression. HOSPITAL COURSE: The patient is a 81-year-old female who has fairly end-stage COPD and not COVID vaccinated, has had COVID pneumonia and she is a vaccine denial and came in with blood pressure 85/50 with marked shortness of breath and wheezing and coarse rales in the left lung base. No active infiltration was documented, but clinically, she had bronchitis in both lungs and was started on Zithromax, Rocephin and IV steroids and nebulizer treatment and significant clinical improvement was achieved. At the present time, she is very debilitated and has a BMI of 19 and wanted to go home. I sent her on Coreg 3.125 mg twice a day, prednisone 40 mg once a day, albuterol nebulizer treatment on p.r.n. basis 4 times a day, Xanax 0.5 mg 3 times a day for her anxiety and aspirin 81 mg once a day, Lipitor 80 mg once a day, Levaquin 500 mg daily for 5 days, Protonix 40 mg once a day, Ranexa 1 gram twice a day; Entresto one tablet daily, Ultram 50 mg t.i.d. p.r.n. pain and Ambien 5 mg once a day. I started her on spironolactone and changed her prednisone from 20 to 40 mg once a day and will be seen back in the clinic next week and clinical followup. Jonathan Alfonso MD DR: SARAH/TITI TID: [id number] RECEIPT: [id number]
[2022-08-03] MEDS ORDERED: PREDNISONE PO SCH (09:00)
== END 2022-08-02 15:11 | disposition home or self-care (01) | DRG 191 ==
LOC: ICU 15:55 → EDPENDDISTM 08-02 15:12
PROVIDERS: ADMIT Specialist; ATTEND Specialist
DX: J44.1 Chronic obstructive pulmonary disease with (acute) exacerbation (principal); I42.2 Other hypertrophic cardiomyopathy; F41.9 Anxiety disorder, unspecified; I11.9 Hypertensive heart disease without heart failure; J20.8 Acute bronchitis due to other specified organisms; E86.1 Hypovolemia; I95.9 Hypotension, unspecified; J44.0 Chronic obstructive pulmonary disease with (acute) lower respiratory infection; R09.89 Other specified symptoms and signs involving the circulatory and respiratory systems; Z79.82 Long term (current) use of aspirin; Z79.899 Other long term (current) drug therapy; Z87.891 Personal history of nicotine dependence; I25.2 Old myocardial infarction; Z88.2 Allergy status to sulfonamides; Z86.16 Personal history of COVID-19
CPT/HCPCS: 36415; 36600; 71045; 80053; 82803; 84145; 84484; 85027; 85379; 86140; 87040; 87070; 87077; 87186; 87205; 93005; 94640; G0378; J0456; J0696; J2920; J2930; J3490; J7040; J7050; J7512; A4216

== ENCOUNTER → 2022-07-31 | Outpatient (CLI) | payer MEDICARE, BC ==
[~2022-07-31] MED LIST changes: +AMBIEN ONE; +CARV3.122 PO; +LEVO-16 PO; -LEVO500T9 PO; +XOPENEX IH ONE
== END | disposition home or self-care (01) ==
LOC: NPLAB 16:54
PROVIDERS: ATTEND Specialist
DX: R05.8 Other specified cough (principal); R06.02 Shortness of breath; Z20.822 Contact with and (suspected) exposure to COVID-19
CPT/HCPCS: 87637; J3490

== ENCOUNTER 2022-08-28 10:15 | Emergency (ER) | payer MEDICARE, BC ==
[~2022-08-28] VITALS: Ht 152.4 cm; Wt 43.1 kg
[~2022-08-28 10:15] MED LIST changes: +CARV3.122 PO
--- NOTE | 2022-08-28 10:20 | NUR ---
ARRIVAL PT BROUGHT IN VIA GURNEY TO ED4 BY [facility] WITH C/O LEFT SIDE RIB PAIN AND COCCYX PAIN D/T FALL THIS MORNING. PT STATES SHE WAS REACHING FOR NEBULIZER FROM THE BED AND FELL OFF BED LANDING ON LEFT SIDE AND COCCYX. PT STATES THE SURFACE WAS CARPET. PT DENIES LOC OR HITTING OF HEAD. PT WAS GIVEN 15MG TORADOL IV VIA [facility]. PT RATES PAIN 8/10, DESCRIBED SHARP. VITALS OBTAINED. NOTIFIED OF PTS ARRIVAL.
[2022-08-28 10:30] VITALS: BP 121/72
--- NOTE | 2022-08-28 10:41 | ER.PDOC ---
General Chief Complaint: Requesting Medical Care Stated Complaint: FALL Time seen by MD: 10:38 Source: patient Exam Limitations: no limitations History of Present Illness Initial Comments Patient was laying in bed and extending her left upper extremity to grab her nebulizer when she lost balance and fell hitting her tailbone and left ribs. She denies hitting her head. She denies passing out. No loss of consciousness. Occurred: just prior to arrival Where: home Severity: moderate Injuries/Pain Location: chest, back Context: Lost Balance Loss of Consciousness: No Loss of Consciousness Associated Symptoms: denies symptoms Allergies: Coded Allergies: Iodinated Contrast Media (Verified Allergy, Severe, Rash, 12/18/16) HEAD TO TOE RASH AND BLISTER codeine (Verified Allergy, Mild, Nausea, 09/14/14) Sulfa (Sulfonamide Antibiotics) (Verified Allergy, Unknown, 06/11/20) hydrocodone (Verified Allergy, Unknown, 06/11/20) NAUSEA AND VOMITING MEDS Active Scripts Prednisone (PREDNISONE) 20 Mg Tablet, 40 MG PO DAILY for 7 Days, TAB Prov:JADON REYES MD 08/02/22 Carvedilol (CARVEDILOL) 3.125 Mg Tablet, 3.125 MG PO BID for 30 Days, TAB Prov:JADON REYES MD 08/02/22 Ranolazine (RANEXA) 500 Mg Tab.er.12h, 1000 MG PO BID for 30 Days Prov:JADON REYES MD 11/29/20 Aspirin (ASPIRIN EC) 81 Mg Tablet.dr, 81 MG PO DAILY for 30 Days Prov:JADON REYES MD 11/29/20 Sacubitril/Valsartan (Entresto 24 mg-26 mg Tablet) 1 Each Tablet, 1 EACH PO DAILY for 30 Days, TAB Prov:JADON REYES MD 11/29/20 Nitroglycerin (NITROSTAT) 0.4 Mg Tab.subl, 0.4 MG SL PRN PRN for CHEST PAIN for 30 Days, TAB Prov:JADON REYES MD 11/29/20 [Levofloxacin] 500 MG TABLET No Conflict Check, 500 MG PO DAILY for 14 Days Prov:JADON REYES MD 11/29/20 Fluticasone Propionate (Flonase Allergy Relief) 9.9 Ml [place].susp, 9.9 ML NS DAILY24 for 30 Days, SPRAYS Prov:JADON REYES MD 01/04/20 Pantoprazole Sodium (PROTONIX) 40 Mg Tablet.dr, 40 MG PO DAILY for 14 Days Prov:JADON REYES MD 11/22/19 Atorvastatin 40MG (LIPITOR 40MG) 40 Mg Tablet, 80 MG PO HS for 30 Days, TAB Prov:JADON REYES MD 11/22/19 Guaifenesin (MUCINEX) 600 Mg Tablet.er, 600 MG PO BID for 7 Days, 0 Refills Prov:ESSENCE CHOWDHURY DITCH REPAIRER 09/10/17 Zolpidem Tartrate (AMBIEN) 5 Mg Tablet, 1 TAB PO HS PRN for INSOMNIA, #30 TAB 0 Refills Prov:TIFFANY BYERS MD 03/15/17 Reported Medications Fluticasone/Vilanterol (Breo Ellipta 200-25 Mcg INH) 1 Each Blst.w.dev, 1 EACH IH QID 03/11/17 Alprazolam (ALPRAZOLAM) 0.5 Mg Tab.rapdis, 0.5 MG PO TID 03/11/17 Tramadol Hcl (TRAMADOL HCL) 50 Mg Tablet, 50 MG PO TID PRN for PAIN, TABLET 01/11/16 Albuterol Sulfate (ALBUTEROL SULFATE) 0.63 Mg/3 Ml Vial.neb, 1 VIAL NEB QID PRN for SHORTNESS OF BREATH, #150 MILLILITER 1 Refill 07/26/15 Past Medical History Medical History: coronary artery disease, cardiac problems, congestive heart failure, COPD, high cholesterol, thyroid disease Surgical History: no surgical history Family History Significant Family History: no pertinent family hx Social History Smoking: non-smoker Alcohol Use: none Drug Use: none Review of Systems Constitutional: no symptoms reported Respiratory: no symptoms reported Cardiovascular: see HPI Gastrointestinal: no symptoms reported Genitourinary: no symptoms reported Musculoskeletal: see HPI All Other Systems: Reviewed and Negative Physical Exam General Appearance: No Apparent Distress, WD/WN Head: No Evidence of Injury Eyes: bilateral eye normal inspection Ears, Nose, Mouth, Throat: Hearing Grossly Normal, No Evidence of ENT Injury, No Dental Injury Neck: Non-Tender, Normal Alignment, Nexus criteria neg, Normal Inspection Cardiovascular/Respiratory: Regular Rate, Rhythm, No M/R/G, Normal Peripheral Pulses, No JVD, Normal Breath Sounds, No Respiratory Distress, Rib Tenderness (left mid lateral chest wall) Gastrointestinal: Normal Bowel Sounds, No Organomegaly, No Pulsatile Mass, Non Tender, Soft Back: Vertebral Tenderness (Coccyx) Extremities: No Evidence of Injury, Normal Range of Motion, Non-Tender, No Pedal Edema Neurologic/Psychiatric: brine maker II-XII NML as Tested, No Motor/Sensory Deficits, Alert, Normal Mood/Affect, Oriented x 3 Skin: Normal Color, Warm/Dry [place] Coma Score Best Eye Response: (4) Open Spontaneously Best Verbal Response: (5) Oriented Best Motor Response: (6) Obeys Commands Results/Orders Results/Orders Orders - FREDIS SANTACRUZ MD Cbc With Auto Diff (08/28/22 10:33) Comprehensive Metabolic Panel (08/28/22 10:33) Urinalysis (08/28/22 10:33) Xr Ribs Lt W/Cxr (08/28/22 10:33) Xr Sac/Coccyx (08/28/22 10:33) Vital Signs Date Time Temp Pulse Resp B/P (MAP) Pulse Ox O2 Delivery O2 Flow Rate FiO2 08/28/22 10:42 22 08/28/22 10:30 97.8 61 22 121/72 (88) 94 Nasal Cannula* 2 28 08/28/22 10:30 97.8 61 22 08/28/22 10:30 97.8 61 22 94 Laboratory Tests Test 08/28/22 10:43 08/28/22 10:50 White Blood Count 9.9 10^3/uL (4.5-11.0) Red Blood Count 3.78 10^6/uL (4.00-5.20) L Hemoglobin 12.5 g/dL (12.0-15.0) Hematocrit 38.5 % (36.0-46.0) Mean Corpuscular Volume 101.9 fL (78-100) H Mean Corpuscular Hemoglobin 33.1 pg (26-34) Mean Corpuscular Hemoglobin Concent 32.5 g/dL (33-36.5) L Red Cell Distribution Width 14.3 % (11.5-14.5) Platelet Count 227 10^3/uL (150-400) Mean Platelet Volume 9.0 fL (7.8-11.0) Neutrophils (%) (Auto) 90.2 % (41.0-85.0) *H Lymphocytes (%) (Auto) 6.2 % (24.0-44.0) *L Monocytes (%) (Auto) 3.0 % (5.0-12.0) L Neutrophils # (Auto) 9.0 10^3/uL (1.8-7.7) H Lymphocytes # (Auto) 0.62 10^3/uL1 (1.0-4.8) L Monocytes # (Auto) 0.3 10^3/uL (0.3-0.8) Absolute Immature Granulocyte (auto 0.04 10^3 u/L (0-2) Absolute Eosinophils (auto) 0.0 10^3/uL (0.0-0.2) Immature Granulocytes % 0.40 % (0.00-0.50) Eosinophils % 0.1 % (0.0-5.0) Basophils % 0.1 % (0.0-0.2) Basophils # 0.0 10^3/uL (0.0-0.1) Sodium Level 137 mmol/L (132-145) Potassium Level 3.4 mmol/L (3.6-5.2) L Chloride Level 101.0 mmol/L (96-109) Carbon Dioxide Level 29.3 mmol/L (20.0-32) Anion Gap 10.1 Blood Urea Nitrogen 15 mg/dL (7-18) Creatinine 0.91 mg/dL (0.59-1.40) Estimated GFR () 72.0 (>/=60) Est GFR (CKD-EPI)(Non-Afr [place]) 59.5 (>/=60) BUN/Creatinine Ratio 16.0 Glucose Level 139 mg/dL (70-110) H Calcium Level 8.6 mg/dL (8.4-10.5) Total Bilirubin 0.3 mg/dL (0.2-1.0) Aspartate Amino Transferase (AST) 19 U/L (0-35) Alanine Aminotransferase (ALT) 19 U/L (12-78) Alkaline Phosphatase 56 U/L (50-136) Total Protein 5.8 g/dL (6.4-8.2) L Albumin 3.2 g/dL (3.4-5.0) L Globulin 2.6 Albumin/Globulin Ratio 1.230 Urine Collection Type UNKNOWN Urine Color YELLOW Urine Appearance CLEAR Urine Bilirubin NEGATIVE (NEGATIVE) Urine Ketones NEGATIVE (NEGATIVE) Urine Specific [place] 1.015 (1.005-1.030) Urine pH 7.0 (4.5-8.0) Urine Protein NEGATIVE (NEGATIVE) Urine Urobilinogen 0.2 E.U./dL (0.2) Urine Nitrate NEGATIVE (NEGATIVE) Urine Leukocyte Esterase NEGATIVE (NEGATIVE) Urine Glucose (Auto)(UA) NEGATIVE (NEGATIVE) Urine Blood NEGATIVE (NEGATIVE) Progress Progress Left rib series: No visible displaced rib fracture. Nondisplaced rib fractures are not excluded. Recommend correlation with clinical and physical findings. 2. No acute cardiopulmonary findings. X-rays of sacrum/coccyx show no fracture. WBC is 9.9, chemistry show potassium of 3.4 and rest of chemistry is unremarkable. Urinalysis is normal. Patient received fentanyl in the ambulance with improvement in pain. She is feeling good to go home. Informed Dr. Reyes of what was done in the ED and he is agreeable with patient going home. ER DEPART Departure Time of Disposition: 11:56 Disposition: 01 HOME / SELF CARE / HOMELESS Impression: Primary Impression: Contusion of chest wall Additional Impression: Contusion, back Condition: Improved Referrals: JADON REYES MD (PCP) PRIMARY CARE PROVIDER Additional Instructions: Tramadol Follow-up with your PCP in 1 week Return to ED if worsening or concerns Duration or Time Spent with Pa: 30 min Problem Qualifiers Primary Impression: Contusion of chest wall Encounter type: initial encounter Laterality: left Qualified Codes: S20.212A - Contusion of left front wall of thorax, initial encounter Additional Impression: Contusion, back Encounter type: initial encounter Laterality: unspecified laterality Qualified Codes: S20.229A - Contusion of unspecified back wall of thorax, in itial encounter FREDIS SANTACRUZ MD Aug 28, 2022 10:41
[2022-08-28 10:49] LABS: BASOPHIL % 0.1 % (0.0-0.2); EOSINOPHIL % 0.1 % (0.0-5.0); LYMPHOCYTES # 0.62 10^3/uL1 (1.0-4.8); LYMPHOCYTES % 6.2 % (24.0-44.0); MEAN CORP HGB 33.1 pg (26-34); MONOCYTES # 0.3 10^3/uL (0.3-0.8); NEUTROPHILS % 90.2 % (41.0-85.0); PLATELET COUNT 227 10^3/uL (150-400); RED CELL DISTRIBUTION WIDTH 14.3 % (11.5-14.5)
[2022-08-28 11:00] LABS: BILIRUBIN,URINE NEGATIVE (NEGATIVE); UROBILINOGEN,URINE 0.2 E.U./dL (0.2)
[2022-08-28 11:08] LABS: CARBON DIOXIDE 29.3 mmol/L (20.0-32)
--- NOTE | 2022-08-28 11:43 | DIREP ---
PROCEDURE:XRAY RIBS W/PA CHEST 3VWS-LT COMPARISON:[facility], , XRAY CHEST SINGLE VW, 08/01/2022, 08:00 AM. INDICATIONS:pain S/P fall TECHNIQUE:PA chest and multiple view of the left ribs FINDINGS: Left RIBS:No visible displaced rib fracture. Nondisplaced rib fractures are not excluded. Recommend correlation with clinical and physical findings. LUNGS/PLEURA: Blunting of the left costophrenic angle, differential includes small pleural effusion versus pneumonia, atelectasis or contusion. CARDIAC: Heart size within normal limits MEDIASTINUM: Calcified plaque in the aorta BONES: No acute osseous findings. OTHER: No additional findings. CONCLUSION: 1. No visible displaced rib fracture. Nondisplaced rib fractures are not excluded. Recommend correlation with clinical and physical findings. 2. No acute cardiopulmonary findings. Dictated by: Nic Rutledge M.D. on 08/28/2022 at 11:39 AM
--- NOTE | 2022-08-28 11:44 | DIREP ---
PROCEDURE:XRAY SACRUM COCCYX MIN 2VWS COMPARISON:None. INDICATIONS:pain S/P fall FINDINGS: BONES:No visible displaced fracture. JOINTS:No dislocation. Small acetabular osteophytes. SOFT TISSUES:Safety pin projects over the left pelvis. OTHER:No additional findings. CONCLUSION:No visible displaced fracture. Dictated by: Nic Rutledge M.D. on 08/28/2022 at 11:42 AM
--- NOTE | 2022-08-28 11:55 | NUR ---
[facility] EDP ON PHONE WITH DR Joe REYES TO DISCUSS PT PLAN OF CARE.
[2022-08-28 11:56] VITALS: BP 117/70
[2022-08-28 15:59] LABS: LYMPHOCYTE 11 % (25-36); SEGMENTED NEUTROPHILS 86 % (31-76)
[2022-08-28 16:00] LABS: MONOCYTE 3 % (3-9)
== END 2022-08-28 12:04 | disposition home or self-care (01) ==
LOC: EDBD 10:15 → ER 10:15
DX: S20.212A Contusion of left front wall of thorax, initial encounter (principal); E07.9 Disorder of thyroid, unspecified; E78.00 Pure hypercholesterolemia, unspecified; I25.10 Atherosclerotic heart disease of native coronary artery without angina pectoris; J44.9 Chronic obstructive pulmonary disease, unspecified; I50.9 Heart failure, unspecified; Z88.5 Allergy status to narcotic agent; Z88.2 Allergy status to sulfonamides; W06.XXXA Fall from bed, initial encounter; Y93.89 Activity, other specified; Y92.89 Other specified places as the place of occurrence of the external cause; Y99.8 Other external cause status
CPT/HCPCS: 36415; 72220; 80053; 81003; 82948; 85025; 99284; 71101-LT

== ENCOUNTER → 2022-09-18 | Outpatient (CLI) | payer MEDICARE, BC ==
--- NOTE | 2022-09-18 16:22 | DIREP ---
PROCEDURE:CHEST 2 VIEWS COMPARISON:[facility], CR, XRAY RIBS W/PA CHEST 3VWS-LT, 08/28/2022, 11:08 AM. INDICATIONS:J40 BRONCHITIS FINDINGS: LUNGS/PLEURA:Hyperinflation with flattening of the diaphragm and increased retrosternal air space would suggest a background of underlying chronic lung disease such as COPD/emphysema. Suspect small bilateral pleural effusions, left greater than right. There is likely associated compressive atelectasis. Underlying infiltrate is not entirely excluded in the appropriate clinical setting, particularly at the left lung base. No pneumothorax. VASCULATURE:No pulmonary vascular congestion. CARDIAC:The heart is not significantly enlarged for technique. MEDIASTINUM:Mediastinal contours appear within acceptable limits with calcifications of the aorta. BONES:Mild degenerative changes of the thoracic spine with increased thoracic kyphosis. CONCLUSION: 1. COPD/emphysema with suspected small bilateral pleural effusions. There is likely associated compressive atelectasis at the lung bases. Underlying infiltrate is considered less likely, but is not entirely excluded at the left lung base in the appropriate clinical setting. Dictated by: Carlos Manuel Wayne M.D. On 09/18/2022 at 04:19 PM
== END | disposition home or self-care (01) ==
LOC: RAD 12:32
PROVIDERS: ATTEND Specialist
DX: J40 Bronchitis, not specified as acute or chronic (principal); M47.814 Spondylosis without myelopathy or radiculopathy, thoracic region
CPT/HCPCS: 71046

== ENCOUNTER → 2022-09-18 | Outpatient (CLI) | payer MEDICARE, BC | END | disposition home or self-care (01) | LOC: NPLAB 11:43 | PROVIDERS: ATTEND Specialist | DX: R05.9 Cough, unspecified (principal); J40 Bronchitis, not specified as acute or chronic; Z20.822 Contact with and (suspected) exposure to COVID-19 | CPT/HCPCS: 87637 ==